=== PATIENT | female | born 1940 | race Caucasian/White ===

== ENCOUNTER 2016-08-08 11:02 | Inpatient (IN) | payer OTHER ==
[~2016-08-08] VITALS: Ht 167.6 cm; Wt 129.2 kg
--- NOTE | 2016-08-08 11:11 | NUR ---
PT TO ED FOR WORSENING SOB, COUGH AND CHILLS FOR PAST 3 DAYS. REPORTING CLEAR SPUTUM WORSE AT NIGHT, STATING "IT FEEL IT IN THE LEFT SIDE OF MY BRONCHI, ONCE I COUGH IT UP IT FEELS BETTER." PT ALSO REPORTING SUBJECTIVE FEVERS. AFEBRILE IN TRIAGE.
--- NOTE | 2016-08-08 11:12 | NUR ---
PT REFUSING EKG.
--- NOTE | 2016-08-08 11:16 | NUR ---
PT ALSO REFUSING WHEELCHAIR.
--- NOTE | 2016-08-08 11:22 | ED DYSPNEA/ASTHMA COMPLAINT ---
History of Present Illness General Chief Complaint: Dyspnea (COPD, CHF, Other) Stated Complaint: TROUBLE BREATHING, Source: patient Exam Limitations: no limitations Allergies Coded Allergies: meclizine (RASH 08/08/16) Reconcile Medications Aclidinium Boon (Tudorza Pressair) 400 MCG/ACTUATION AER.POW.BA 1 PUFF DAILY COPD (Reported) Budesonide/Formoterol Fumarate (Symbicort 160-4.5 Mcg Inhaler) 160 MCG-4.5 MCG/ ACTUATION HFA.AER.AD 2 PUFF BID COPD (Reported) Cholecalciferol (Vitamin D3) (Vitamin D3) 1,000 UNIT CAPSULE 2 CAP PO DAILY REPLACEMENT (Reported) Furosemide 40 MG TABLET 1 TAB PO PRN CHF (Reported) Losartan Potassium 100 MG TABLET 1 TAB PO DAILY HTN (Reported) Triage Note: PT TO ED FOR WORSENING SOB, COUGH AND CHILLS FOR PAST 3 DAYS. REPORTING CLEAR SPUTUM WORSE AT NIGHT, STATING "IT FEEL IT IN THE LEFT SIDE OF MY BRONCHI, ONCE I COUGH IT UP IT FEELS BETTER." PT ALSO REPORTING SUBJECTIVE FEVERS. AFEBRILE IN TRIAGE. Triage Nurses Notes Reviewed? yes HPI: This patient is a 76-year-old female the past medical history including COPD who presented to the emergency department today for evaluation of difficulty breathing times several days. The patient reported that recently her daughter was sick and, "gave it to me." The patient reported that whenever she gets sick and eventually goes to her lungs. She reported that over the last couple of nights she has been having difficult time breathing and can only lay flat for a short period of time before she needs to sit up. She reported that her cough has been intermittently productive of clear or white sputum. The patient reported that she does have lower extremity edema at baseline and takes a as needed dose of Lasix 40 mg. The patient reported tactile fevers, but denied any chills. The patient denied any chest pain, abdominal pain, nausea, vomiting, diarrhea, or constipation. (NARINDER VINCENT,ALISSA) Vital Signs & Intake/Output Vital Signs & Intake/Output Vital Signs Date Time Temp Pulse Resp B/P Pulse O2 O2 Flow FiO2 Ox Delivery Rate 08/09 0954 91 149/99 08/09 0914 95 Room Air Room Air 08/09 0813 98.4 91 20 149/99 92 Room Air 08/09 0000 96 Room Air 08/08 2245 98.7 73 20 138/64 94 Room Air 08/08 1912 77 146/80 / 1835 Room Air Room Air 08/08 1707 98.2 77 20 156/82 94 Room Air 08/08 1600 94 Room Air 08/08 1419 97 08/08 1306 71 18 155/67 92 Room Air 08/08 1248 98.8 68 18 147/67 93 Room Air ED Intake and Output 08/09 0000 08/08 1200 Intake Total 1010 Output Total 850 Balance 160 Intake, IV 10 Intake, Oral 1000 Number 0 Bowel Movements Output, Urine 850 Patient 285 lb 285 lb Weight Past History Travel History Traveled to [place] past 21 day No Medical History Any Pertinent Medical History? see below for history Neurological: NONE EENT: NONE Cardiovascular: hypertension Respiratory: COPD Hepatic: cirrhosis Renal: NONE Musculoskeletal: TWO KNEE REPLACEMENTS Psychiatric: NONE Endocrine: DIABETIC Blood Disorders: "SENSITIVE TO BRUISING" Cancer(s): NONE Pneumonia Vaccine: 03/05/06 Influenza Vaccine: 02/02/07 Surgical History Surgical History: non-contributory Psychosocial History Who do you live with Patient/Self Services at Home None What is your primary language Danish Tobacco Use: Quit <30 days ago ETOH Use: occasional use Illicit Drug Use: denies illicit drug use Family History Hx Contributory? No (ALISSA BARCENAS PA-C) Review of Systems Review of Systems Constitutional: Reports: see HPI. EENTM: Reports: no symptoms. Respiratory: Reports: see HPI. Cardiovascular: Reports: see HPI. GI: Reports: no symptoms. Genitourinary: Reports: no symptoms. Musculoskeletal: Reports: no symptoms. Skin: Reports: no symptoms. Neurological/Psychological: Reports: no symptoms. All Other Systems: Reviewed and Negative (ALISSA BARCENAS PA-C) Physical Exam Physical Exam Respiratory: chest non-tender, scattered rhonchi and wheezes heard throughout all lung boucher. No rales appreciated. No diminished breath sounds. Comments: Well-developed well-nourished person in no acute distress HEENT: Normal EENT exam, head normocephalic, moist mucous membranes Pupils equally round and reactive to light. Neck: Supple, no lymphadenopathy Back: Normal inspection Cardiovascular: Regular rate and rhythm with no murmurs, rubs, or gallops. No carotid bruits or JVD Abdomen: Soft, nontender, and nondistended. Organomegaly appreciated. Normoactive bowel sounds Extremity: Bilateral, nonpitting lower extremity edema with no overlying erythema, no calf tenderness to palpation, normal and equal pulses. Capillary refill less than 2 seconds Neuro: Alert oriented x3, cranial nerves II through XII grossly intact. Skin: No appreciable rash on exposed skin, skin is warm and dry. Psych: Mood and affect is normal Core Measures ACS in differential dx? Yes Severe Sepsis Present: No Septic Shock Present: No (NARINDER VINCENT,ALISSA) Progress Differential Diagnosis: asthma, AMI, bronchitis, costochondritis, CHF, COPD, musculoskeletal pain, pericarditis, pulmonary embolism, pneumonia, pneumothorax, unstable angina Diagnostic Imaging: Viewed by Me: Radiology Read. Discussed w/RAD: Radiology Read. Radiology Impression: PATIENT: WANDA COWAN PRESENT AGE: 76 PATIENT ACCOUNT NO: [id number] : 40 LOCATION: [facility] ORDERING PHYSICIAN: ALISSA BARCENAS PA-C SERVICE DATE: 08/08/16 EXAM TYPE: RAD - XRY-CHEST XRAY, PA AND LATERAL EXAMINATION: XR CHEST CLINICAL INFORMATION: 76-year-old female with cough, shortness of breath. COMPARISON: Chest done on 11/10/2015. TECHNIQUE: 2 views of the chest were obtained. FINDINGS: Persistent stable moderate enlargement of the cardiomediastinal silhouette, superimposed mild pulmonary venous hypertension and possible minimal interstitial edema, consistent with [id number] CHF related changes are noted. Note is also made of small left-sided pleural effusion. The size of the effusion appears to have increased since the prior study. The visualized upper abdomen is unremarkable. No discrete focal airspace opacity sestamibi pneumonia present. No significant change since prior study except for mild interval increase in size of the left-sided pleural effusion. IMPRESSION: Evidence of egds-[id number] CHF. DICTATED BY: FREDERIC FRIAS MD DATE/TIME DICTATED:1144 RATE REVIEWER:JOSÉ MIGUEL DATE/TIME TRANSCRIBED:08/08/161144 CONFIDENTIAL, DO NOT COPY WITHOUT APPROPRIATE AUTHORIZATION. <Electronically signed in Other Vendor System> SIGNED BY: FREEDRIC FRIAS MD 08/08/16 0231 Initial ED EKG: normal axis, normal intervals, nonspecific ST T wave chg, T wave flattening in leads 1, 2,aVL, and aVF. 75 bpm Comments: 08/08/2016 11:43:27 AM: Patient has refused EKG multiple times. 08/08/2016 12:02:30 PM: I updated the patient that her x-ray is showing CHF. She is now agreeable to an EKG. 08/08/2016 12:45:16 PM: This patient is influenza positive with a lactic acidosis of 2.6. Due to this patient is likely new onset CHF, unable to give large amount of fluids at this time. Discussed this patient with Dr. Carlos who is in agreement with the plan for telemetry admission. Patient signed out to Dr. Carlos for telemetry admission. 08/08/2016 12:49:03 PM: I discussed this patient with on-call surgical instrument technician, Dr. Rosales. He agreed to consult on this patient. (NARINDER VINCENT,ALISSA) Plan of Care: Orders Procedure Date/time Status PHOSPHORUS 08/09 0635 Complete MAGNESIUM 08/09 0635 Complete LACTIC ACID 08/09 0600 Complete CBC WITHOUT DIFFERENTIAL 08/09 0600 Complete BASIC ELECTROLYTES PLUS BUN&CR 08/09 0600 Complete LACTIC ACID 08/09 0330 Complete LACTIC ACID 08/09 0045 Complete Lab Add-on Test 08/09 UNK Active Hemoccult 08/09 UNK Active MISSING MEDICATION FORM 08/09 UNK Active ECHOCARDIOGRAM 08/09 UNK Active Consistent Carbohydrate 3 08/08 L Complete Regular Diet 08/08 D Active Teach/Educate 08/09 2135 Active Pain Treatment and Response 08/09 2135 Active Nutritional Intake, Monitor 08/09 2135 Active Isolation 08/08 213 Active Patient Care Conference 08/08 2136 Active LACTIC ACID 08/08 2100 Complete RT: Evaluation 08/08 1834 Active TROPONIN LEVEL 08/08 1800 Complete EKG 08/08 1800 Active PROTHROMBIN TIME 08/08 1501 Complete BLOOD CULTURE 08/08 1445 Active Intake & Output 08/08 1435 Active TRC EVALUATION (GEN) 08/08 1432 Complete Pathway - chart 08/08 1432 Active House Staff 08/08 1432 Active Patient Data 08/08 1432 Active LACTIC ACID 08/08 1422 Complete OXYGEN SETUP (GEN) 08/08 1359 Active Saline Lock 08/08 1359 Active Misc Message 08/08 1359 Active ED Holding Orders 08/08 1359 Active Vital Signs 08/08 1359 Active Activity/Ambulation 08/08 1359 Active Code Status 08/08 1359 Active Admit to inpatient 08/08 1328 Active Patient Data 08/08 1305 Active VIRAL CULTURE 08/08 1150 Active RAPID VIRAL INFLUENZA A 08/08 1142 Complete ARTERIAL BLOOD GAS (GEN) 08/08 1122 Complete TROPONIN LEVEL 08/08 1122 Complete MAGNESIUM 08/08 1122 Complete LACTIC ACID 08/08 1122 Complete COMPREHENSIVE METABOLIC PANEL 08/08 1122 Complete CBC WITHOUT DIFFERENTIAL 08/08 1122 Complete B-TYPE NATRIURETIC PEP (BNP) 08/08 1122 Complete EKG 08/08 1122 Active THERAPIST ORDERS 08/08 0648 Complete AEROSOL CHG 08/08 UNK Complete Lab Add-on Test 08/08 UNK Active Weight 08/08 UNK Active Telemetry/Computer Lab Para Professional 08/08 UNK Active Current Medications Sig/Estephania Start time Last Medication Dose Stop Time Status Admin Prednisone 10 MG DAILY 08/11 1000 AC 08/11 1001 Prednisone 20 MG DAILY 08/10 1000 AC 08/10 1001 Methylprednisolone 40 MG Q8 08/08 2200 CAN (Solumedrol) Docusate Sodium 100 MG BID PRN 08/08 1445 AC (Colace) Ibuprofen 200 MG Q6P PRN 08/08 1445 AC (Advil) Oxycodone/ 1 TAB Q6P PRN 08/08 1430 AC Acetaminophen (Percocet) Laboratory Tests 08/09/16 0635: Anion Gap 4 L, Estimated GFR 54 L, BUN/Creatinine Ratio 29.0 H, Lactic Acid 1.2, Phosphorus 2.9, Magnesium 1.7 08/09/16 0255: Lactic Acid 2.3 H, CBC w Diff NO MAN DIFF REQ, RBC 4.00 L, MCV 96.3, MCH 32.1 H, RDW 13.5, MPV 9.5, Gran % 79.9 H, Lymphocytes % 8.1 L, Monocytes % 11.8 H, Eosinophils % 0.1, Basophils % 0.1, Absolute Granulocytes 4.0, Absolute Lymphocytes 0.4 L, Absolute Monocytes 0.6, Absolute Eosinophils 0, Absolute Basophils 0, PUBS MCHC 33.3 08/09/16 0030: Lactic Acid 3.4 H 08/08/16 2343: Lactic Acid Cancelled 08/08/16 2145: Lactic Acid 4.6 H 08/08/16 1815: Troponin I 0.04 08/08/16 1815: Lactic Acid 2.7 H 08/08/16 1459: PT 18.3 H, INR 1.75 H 08/08/16 1217: pH 7.47 H, pCO2 33 L, pO2 76 L, HCO3 23, ABG O2 Sat (Measured) 95.0 L, P-50 (Temp Corrected) N, Carboxyhemoglobin 0.7 L, O2 Concentration % .21, Temperature 97.9, O2 Delivery Method RA, Phlebotomy Draw Site LEFT RADIAL 08/08/16 1150: Anion Gap 8, Estimated GFR > 60, BUN/Creatinine Ratio 26.7 H, Glucose 121 H, Lactic Acid 2.6 H, Calcium 9.4, Magnesium 1.4 L, Total Bilirubin 2.1 H, AST 46 H, ALT 36, Alkaline Phosphatase 71, Troponin I 0.04, Arr-H-Revdlzugmmm Pept 8260 H, Total Protein 6.8, Albumin 3.4 L, Globulin 3.4, Albumin/Globulin Ratio 1.0 L, CBC w Diff NO MAN DIFF REQ, RBC 4.34, MCV 95.5, MCH 32.6 H, RDW 13.6, MPV 9.5, Gran % 82.0 H, Lymphocytes % 8.1 L, Monocytes % 9.8 H, Eosinophils % 0, Basophils % 0.1, Absolute Granulocytes 3.9, Absolute Lymphocytes 0.4 L, Absolute Monocytes 0.5, Absolute Eosinophils 0, Absolute Basophils 0, PUBS MCHC 34.1, Virus Culture Pending Microbiology 08/10 747 LOWER RESP: Respiratory Culture - CAN Cancelled: NUMBER OF SQUAMOUS CELLS INDICATES POOR QUALITY SPECIMEN 08/10 747 LOWER RESP: Gram Stain - CAN Cancelled: NUMBER OF SQUAMOUS CELLS INDICATES POOR QUALITY SPECIMEN 08/09 1999 LOWER RESP: Respiratory Culture - CAN Cancelled: RECANCELING AFTER FINAL 08/09 1999 LOWER RESP: Gram Stain - CAN Cancelled: RECANCELING AFTER FINAL 08/08 1814 BLOOD: Blood Culture - RECD 08/08 145 BLOOD: Blood Culture - RECD 08/08 1150 NASOPHARYN: Influenza Virus A & B Rapid Smear - COMP INFLUENZA TYPE B Departure Departure Disposition: STILL A PATIENT Condition: Stable Clinical Impression Primary Impression: CHF (congestive heart failure) Qualifiers: Congestive heart failure type: unspecified congestive heart failure type Congestive heart failure chronicity: unspecified congestive heart failure chronicity Qualified Code: I50.9 - Heart failure, unspecified Secondary Impressions: Influenza, Lactic acidosis, Respiratory alkalosis Referrals: RISHI BARNES MD (PCP/Family) Departure Forms: Customer Survey General Discharge Information Admission Note Spoke With: RISHI BARNES MD Documentation of Exam: Documentation of any treatments & extenuating circumstances including Concerns Regarding Discharge (functional status, medication knowledge or non-compliance, living conditions, etc.) that warrant an admission rather than observation: [ This patient is a 76-year-old female with past medical history including COPD who presented to the emergency department today for evaluation of difficulty breathing. Lactic acidosis of 2.6. Influenza A positive. Likely new onset CHF based on BNP greater than 8000 and chest x-ray suggesting CHF. ABG showing a respiratory alkalosis. Patient should be admitted to telemetry for diuresis, trend labs, cardiology consultation, echocardiogram, possible gentle hydration, serial troponin levels, serial EKGs, and close monitoring. Premature discharge could medically harmful.] (ALISSA BARCENAS PA-C) PA/SPRAY UNIT FEEDER Co-Sign Statement Statement: ED Attending supervision documentation- [X] I saw and evaluated the patient. I have also reviewed all the pertinent lab results and diagnostic results. I agree with the findings and the plan of care as documented in the PA's/SPRAY UNIT FEEDER's documentation. [X] I have reviewed the ED Record and agree with the PA's/SPRAY UNIT FEEDER's documentation. [] Additions or exceptions (if any) to the PAs/SPRAY UNIT FEEDER's note and plan are summarized below: [] (ZAHRAA GARCIA,STEFFANIE Mcbride) Critical Care Note Critical Care Note Critical Care Time: 30-74 min (ALISSA BARCENAS PA-C)
--- NOTE | 2016-08-08 11:25 | NUR ---
CARE OF PATIENT ASSUMED. PT CHANGED INTO GOWN. CRACKLES/WHEEZING OVER RIGHT/LUNG. PT TAKEN TO XRAY VIA STRETCHER. + PRODUCTIVE COUGH, WHITE SPUTUM
--- NOTE | 2016-08-08 11:25 | NUR ---
CARE OF PATIENT ASSUMED. PT CHANGED INTO GOWN. CRACKLES/WHEEZING HEARD OVER RIGHT SIDE OF CHEST. PT HAS PRODUCTIVE COUGHT. TAKEN TO XRAY
--- NOTE | 2016-08-08 11:41 | NUR ---
ATTEMPT X2 FOR EKG PT STILL REFUSING STATING "ITS LUNG RELATED NOT CARDIAC"
--- NOTE | 2016-08-08 11:51 | RADIOLOGY REPORT ---
EXAMINATION: XR CHEST CLINICAL INFORMATION: 76-year-old female with cough, shortness of breath. COMPARISON: Chest done on 11/10/2015. TECHNIQUE: 2 views of the chest were obtained. FINDINGS: Persistent stable moderate enlargement of the cardiomediastinal silhouette, superimposed mild pulmonary venous hypertension and possible minimal interstitial edema, consistent with [id number] CHF related changes are noted. Note is also made of small left-sided pleural effusion. The size of the effusion appears to have increased since the prior study. The visualized upper abdomen is unremarkable. No discrete focal airspace opacity sestamibi pneumonia present. No significant change since prior study except for mild interval increase in size of the left-sided pleural effusion. IMPRESSION: Evidence of szkc-yh-syasosgn CHF.
--- NOTE | 2016-08-08 11:55 | NUR ---
1145 PT RETURNED FROM XRAY. PT STATES "WHEN I GET LIKE THIS ITS BECAUSE I HAVE THE FLU" CONTACT PRECUATIONS PLACED. SOLUMEDROL IV GIVEN ORDERD LABS AND FLU SWAB SENT
[2016-08-08 12:07] LABS: ABSOLUTE BASOPHIL COUNT 0 /CUMM (0.0-0.2); ABSOLUTE EOSINOPHIL COUNT 0 /CUMM (0.0-0.7); ABSOLUTE GRANULOCYTE CT 3.9 /CUMM (1.4-6.5); ABSOLUTE LYMPH COUNT 0.4 /CUMM (1.2-3.4); ABSOLUTE MONOCYTE COUNT 0.5 /CUMM (0.10-0.60); BASOPHIL % 0.1 % (0.0-2.0); EOSINOPHIL % 0 % (0-5); HEMATOCRIT 41.5 % (37-47); MEAN CORPUSCULAR HGB 32.6 PG (27.0-31.0); MEAN CORPUSCULAR HGB CONC 34.1 G/DL (33.0-37.0); MEAN CORPUSCULAR VOLUME 95.5 FL (81.0-99.0); MEAN PLATELET VOLUME 9.5 FL (7.4-10.4); RBC DISTRIBUTION WIDTH 13.6 % (11.5-14.5); RED BLOOD CELL CT 4.34 /CUMM (4.20-5.40); WHITE BLOOD CELL COUNT 4.8 /CUMM (4.8-10.8)
--- NOTE | 2016-08-08 12:25 | NUR ---
POSITIVE FLU, DOPLET PRECATIONS IN CONTINUED
--- NOTE | 2016-08-08 12:27 | NUR ---
CRITICAL TEST RESULTS [id number] WANDA COWAN 76 F TESTS AND RESULTS: FLU B + Results received and read back by: CRISPIN BHAKTA Results received date and time: 08/08/16 1227 The following provider was notified of the results, and read the results back: FLYNN CHUNG Notified date and time: 08/08/16 at 1227
[2016-08-08 12:29] LABS: PLATELET COUNT 98 /CUMM (130-400)
--- NOTE | 2016-08-08 12:34 | NUR ---
CRITICAL TEST RESULTS [id number] WANDA COWAN 76 F TESTS AND RESULTS: LACTIC ACID 2.6 Results received and read back by: CRISPIN BHAKTA Results received date and time: 08/08/16 1234 The following provider was notified of the results, and read the results back: Notified date and time: 08/08/16 at 1234 , RESULTS GIVEN TO FLYNN CHUNG
[2016-08-08] MEDS ORDERED: FUROSEMIDE40 M1 PO (12:39)
[2016-08-08] MEDS ORDERED: LOSARTAN POTAS100 M1 PO (12:39)
[2016-08-08] MEDS ORDERED: VITAMIN D31000 UNI1 PO (12:40)
[2016-08-08] MEDS ORDERED: TUDORZA PRESS400 MCG (12:42)
[2016-08-08] MEDS ORDERED: SYMBICORT 16010.2 GM (12:46)
--- NOTE | 2016-08-08 12:49 | NUR ---
PT REPORTS FEELING SLIGHT IMPROVEMENT AFTER BREATHING TREATMENT
--- NOTE | 2016-08-08 13:48 | History & Physical ---
See Addendum TRAV GARCIA,LAKISHA 08/08/16 1347: General Information and HPI MD Statement: I have seen and personally examined WANDA COWAN and documented this H&P. The patient is a 76 year old F who presented with a patient stated chief complaint of []. Source of Information: patient, family, old records Exam Limitations: no limitations History of Present Illness: Patient is a 76-year-old female, with significant past medical history of hypertension, COPD, cirrhosis of the liver, solitary pulmonary nodule (last CT scan 3 yrs ago/2013), type 2 diabetes mellitus , presented with chief complaints of generalized weakness, shortness of breath, dry cough and chills since last 4 days. She was relatively alright 4 days ago and then she started having gradually progressive shortness of breath,on exertion,now she is having shortness of breath on rest. She is also complaining of generalized weakness, orthopnea, swelling in her legs (which has been increased), subjective feeling of fever associated with chills and dry cough. She thinks that because of cough she is feeling pain in upper abdoman. She recently had exposure from her daughter who was diagnosed with flu and she thinks that she also got the flu. She does not had any COPD exacerbation since last 3-4 years. She did not take any course of steroids. She is compliant with the medication. She is having bilateral lower leg swelling and for which she was advised to take Lasix as needed. She is also having type 2 diabetes which is controlled by the diet only. She also complaining of bilateral knee pain. She had bilateral knee arthroplasty in 2007. She had cardiology evaluation in 2007, and had colonoscopy couple of yrs ago and which was normal. She had mammography 2 yrs ago, which was normal. 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 She quit smoking 5 years ago. She was smoking 1PPD before that x 40 yrs.She occasionally drinks alcohol, which she stopped after diagnosis of cirrhosis. Allergies -meclizine( Rash) Medicine - Aclidium bromide, Budesonide, furosemide 40mg,Losartan Allergies/Medications Allergies: Coded Allergies: meclizine (RASH 08/08/16) Home Med list Aclidinium [place] (Tudorza Pressair) 400 MCG/ACTUATION AER.POW.BA 1 PUFF DAILY COPD (Reported) Budesonide/Formoterol Fumarate (Symbicort 160-4.5 Mcg Inhaler) 160 MCG-4.5 MCG/ ACTUATION HFA.AER.AD 2 PUFF BID COPD (Reported) Cholecalciferol (Vitamin D3) (Vitamin D3) 1,000 UNIT CAPSULE 2 CAP PO DAILY REPLACEMENT (Reported) Furosemide 40 MG TABLET 1 TAB PO PRN CHF (Reported) Losartan Potassium 100 MG TABLET 1 TAB PO DAILY HTN (Reported) Oseltamivir Phosphate (Tamiflu) 30 MG CAPSULE 30 MG PO 0700,1900 FLU Prednisone 20 MG TABLET 40 MG PO SI COPD 40MG ONCE A DAY FOR TODAY (08/11/2016) 30MG ONCE A DAY FOR TWO DAYS (08/12/2016 -08/13/2016) 20MG ONCE A DAY FOR TWO DAYS (08/14/2016 - 08/15/2016) 10MG ONCE A DAY FOR TWO DAYS (08/16/2016 - 08/17/2016) THAN TALK TO YOUR PCP FOR FURTHER MANAGEMENT. Compliance With Home Meds: FAIR Past History Travel History Traveled to [place] past 21 day No Medical History Neurological: NONE EENT: NONE Cardiovascular: hypertension Respiratory: COPD Hepatic: cirrhosis Renal: NONE Musculoskeletal: TWO KNEE REPLACEMENTS Psychiatric: NONE Endocrine: DIABETIC Blood Disorders: "SENSITIVE TO BRUISING" Cancer(s): NONE Pneumonia Vaccine: 03/05/06 Influenza Vaccine: 03/05/17 Surgical History Surgical History: non-contributory Past Family/Social History Psychosocial History Services at Home: None Smoking Status: Former Smoker ETOH Use: denies use, was using it before Illicit Drug Use: denies illicit drug use Review of Systems Review of Systems Constitutional: Reports: chills, malaise, weakness. Denies: fever. Cardiovascular: Reports: chest pain, edema, orthopena, palpitations, peripheral edema. Denies: syncope. Respiratory: Reports: cough, orthopnea, short of breath, wheezing. GI: Denies: abdominal pain, bloating, constipation. Genitourinary: Denies: no symptoms. Musculoskeletal: Reports: joint pain. Skin: Reports: change in skin color. Neurological/Psychological: Denies: anxiety. Comments morbidly obese,biateral leg swelling, wheezing and dysnea, feeling lowsy. Exam & Diagnostic Data Last 24 Hrs of Vital Signs/I&O Vital Signs Date Time Temp Pulse Resp B/P Pulse O2 O2 Flow FiO2 Ox Delivery Rate 08/08 1707 98.2 77 20 156/82 94 Room Air 08/08 1419 97 08/08 1306 71 18 155/67 92 Room Air 08/08 1248 98.8 68 18 147/67 93 Room Air 08/08 1111 97.9 83 18 175/79 95 Room Air Intake & Output 08/08 1600 08/08 0800 04 0000 Intake Total 200 Output Total Balance 200 Intake, Oral 200 Patient 129.274 kg Weight Physical Exam General Appearance Alert, Oriented X3, Cooperative, No Acute Distress Skin No Significant Lesion HEENT Atraumatic, PERRLA, EOMI Neck Supple, No JVD Cardiovascular Normal S1, Normal S2, murmur present Lungs bilateral decrease air entry , bilateral basal crepts Abdomen Soft, distended, no tenderness Neurological Normal Speech Extremities No Clubbing, No Cyanosis, bilteral pitting edema Vascular cannt palpate due to edema Last 24 Hrs of Labs/Mina: Laboratory Tests 08/08/16 1459: PT 18.3 H, INR 1.75 H 08/08/16 1217: pH 7.47 H, pCO2 33 L, pO2 76 L, HCO3 23, ABG O2 Sat (Measured) 95.0 L, P-50 (Temp Corrected) N, Carboxyhemoglobin 0.7 L, O2 Concentration % .21, Temperature 97.9, O2 Delivery Method RA, Phlebotomy Draw Site LEFT RADIAL 08/08/16 1150: Anion Gap 8, Estimated GFR > 60, BUN/Creatinine Ratio 26.7 H, Glucose 121 H, Lactic Acid 2.6 H, Calcium 9.4, Magnesium 1.4 L, Total Bilirubin 2.1 H, AST 46 H, ALT 36, Alkaline Phosphatase 71, Troponin I 0.04, Xtu-J-Iwphwjspspu Pept 8260 H, Total Protein 6.8, Albumin 3.4 L, Globulin 3.4, Albumin/Globulin Ratio 1.0 L, CBC w Diff NO MAN DIFF REQ, RBC 4.34, MCV 95.5, MCH 32.6 H, RDW 13.6, MPV 9.5, Gran % 82.0 H, Lymphocytes % 8.1 L, Monocytes % 9.8 H, Eosinophils % 0, Basophils % 0.1, Absolute Granulocytes 3.9, Absolute Lymphocytes 0.4 L, Absolute Monocytes 0.5, Absolute Eosinophils 0, Absolute Basophils 0, PUBS MCHC 34.1, Virus Culture Pending Microbiology 08/08 1459 BLOOD: Blood Culture - RECD 08/08 1445 LOWER RESP: Respiratory Culture - COLB 08/08 1445 LOWER RESP: Gram Stain - COLB 08/08 1445 BLOOD: Blood Culture - COLB 08/08 1150 NASOPHARYN: Influenza Virus A & B Rapid Smear - COMP INFLUENZA TYPE B Diagnostic Data EKG Results heart rate 75 beats per minute, normal sinus rhythm, ST elevation V1 to V2, T- wave inversion I,aVL. Assessment/Plan Assessment: Patient is a 76-year-old female, with significant past medical history of hypertension, COPD, cirrhosis of the liver, solitary pulmonary nodule (last CT scan 3 yrs ago/2013), type 2 diabetes mellitus , presented with chief complaints of generalized weakness, shortness of breath, dry cough and chills since last 4 days. Pertinent labs -granulocyte 82%, Platelet -98, Lactic acid 2.6, BUN -24, creatinin -0.9, Mag -1.4, Total Bili -2.1, Pro BNP -8260, Flu B +, ABG -PCO2 33,PO2-76, SaO2-95 CXR -Evidence of dzef-ig-usyajuxp CHF Vital signs -temperature 97.9, pulse 83, respiratory rate 18, blood pressure 175 /79, SaO2 95% on room air Plan - Influenza B positive - * We will start patient on tab Tamiflu 30 mgs BID * We will watch for respiration. * We will send sputum culture and f/u. * Droplet precautions for total 7 days. Acute CHF * We will admit the patient to telemetry floor * We will start patient on inj Lasix 40 mgs IV OD * We'll keep the head end of the bed elevated * Strict intake output charting * Daily weight measurement * We will place consult for cardiology and f/u echocardiogram COPD * TRC/nebulization * Oxygen inhalation to keep SPO2 more than 92% * We will start patient on tab prednisone Lactic Acidosis * Probably secondary to infection and dehydration. * We will regularly measure it. Type 2 diabetes mellitus * Blood sugar measurement TID/HS * NovoLog according to sliding scale Vitamin D deficiency * We will continue cap Vitamin D3 1000U 2cap PO OD Hypomagnesemia - * We will start her on Cap Mag 400mg BID * We will regularly monitor it. Diet -carbohydrate type II/heart healthy diet DVT prophylaxis -ALP S/heparin CODE STATUS -full code. She is having her own living will, and she is thinking to change the code to DNR/DNI in future, but for now full code. As Ranked By This Provider Problem List: 1. CHF (congestive heart failure) Qualifiers Congestive heart failure type: unspecified congestive heart failure type Congestive heart failure chronicity: unspecified congestive heart failure chronicity Qualified Code: I50.9 - Heart failure, unspecified 2. Influenza 3. Lactic acidosis Core Measures/Miscellaneous Acute Coronary Syndrome ACS Diagnosis: No Cerebrovascular Accident CVA/TIA Diagnosis: No Congestive Heart Failure CHF Diagnosis: Yes Date of most recent Echo: 08/08/16 (not had cardiac evaluation) Last Known EF %: 0 (not known) WON/ARB for EF <40%: Yes Venous Thromboembolism VTE Risk Factors: Age > 40, Immobility, paresis, Obesity [facility] prophylaxis d/t: No contraindications No VTE Pharm Prophylaxis d/t: No contraindications VTE Diagnosis: No VTE Type: NONE VTE Confirmed by (Test): NONE Severe Sepsis Severe Sepsis Present: No Septic Shock Septic Shock Present: No Miscellaneous Documentation Attending Case Discussed With: RISHI BARNES MD Primary Care Physician: RISHI BARNES MD Patient sees these Specialists None Level of Patient Care: Telemetry DARIUS IRBY 08/08/16 1440: Resident Review Statement Other Findings: Mrs. Cowan is a 76-year-old female with significant past medical history of COPD, hypertension, diabetes who presented to the hospital emergency department for dyspnea, worse with exertion over the last week. She states that she was doing well up until Friday and believes she contracted the flu from her daughter. She states since then she is felt dyspneic and has been laying in bed feeling unwell. Associated symptoms include fever, chills, myalgias, orthopnea. She reports clear productive sputum production. Vitals on admission, temperature 97.9, pulse rate 83, respiratory rate 18, blood pressure was 5/75 saturating 95% on room air. Physical exam reveals an age- appropriate appearing female lying comfortably in bed with her daughter at the bedside. HEENT exam negative. No JVD. Heart exam revealed S1-S2 with a 3/6 systolic murmur, loudest in the right second intercostal space parasternally, radiating to the carotids. No significant rubs or gallops noted. Lung auscultation revealed diffuse rhonchi with expiratory wheezing. Abdominal exam negative. Extremity exam revealed trace to +1 pitting edema to the proximal shins bilaterally. No tenderness to palpation. EKG revealed sinus rhythm with left axis deviation at approximately -30. LA interval 0.16. QTC 492. Questionable Q waves in V1 and V2 versus incomplete left bundle branch block [QRS less than 120 ms]. Labs were significant for lactic acidosis 2.4, magnesium 1.4, AST/frailty 46/36. First set of troponin 0.04. ProBNP 8260. TBili 2.1 Arterial blood gas showed mild uncompensated respiratory alkalosis, 7.47/33/76/ 23. Chest x-ray showed mild to moderate mild to moderate CHF. She was given 40 mg of IV Lasix in the emergency department as well as 125 mg of Solu-Medrol. She was found to be influenza positive. Problem list assessment and plan Mrs. Cowan is a 76-year-old female with significant past medical history of COPD, hypertension, diabetes who presents to grasp emergency department with dyspnea and was found to have influenza positive and new vascular congestion on chest x-ray. * We will admit to telemetry given her new CHF, we will rule her out for ACS and consult cardiology. * repeat trop and EKG at 6 and replete magnesium w 2 gram of IV magnesium sulphate * We will also obtain an echo to evaluate for new systolic/diastolic dysfunction as well as her systolic murmur * She was given 40 of IV lasix in the ER and is on 40mg of PO lasix at home, we will continue IV lasix in the inpatient setting and reevaluate tomorrow based on I/O and daily weights * Continue Symbicort inhaler and we will give Spiriva instead of tudorza 1 puff daily, as well as TRC evaluation. * Pt not requiring supplemental O2 at the moment. Rapid steroid taper as corticosteroids failed to demonstrate any beneficial effects in the treatment of patients with severe influenza infection, so we might actually do more harm than good by giving her a long course. * As the patient was exposed on Friday and has had symptoms greater than 48 hours, ?role for Tamiflu therapy at this moment. If we do initiate therapy, we will dose at 30 BID given her CrCl. * continue losartan 100 daily for HTN * Continue vitamin D supplementation. * Diabetes is diet controlled. No novolog SS for now, we will give a CC3 diet. Full code Lovenox for DVT prophylaxis CC3 diet Pain pathway
--- NOTE | 2016-08-08 13:53 | PN- Att Addend ---
Attending Addendum Attending Brief Note This patient is a 76-year-old female the past medical history including COPD who presented to the emergency department today for evaluation of difficulty breathing times several days. The patient reported that recently her daughter was sick and, "gave it to me." The patient reported that whenever she gets sick and eventually goes to her lungs. She reported that over the last couple of nights she has been having difficult time breathing and can only lay flat for a short period of time before she needs to sit up. She reported that her cough has been intermittently productive of clear or white sputum. The patient reported that she does have lower extremity edema at baseline and takes a as needed dose of Lasix 40 mg. The patient reported tactile fevers, but denied any chills Review of Systems Constitutional: Reports: see HPI. EENTM: Reports: no symptoms. Respiratory: Reports: see HPI. Cardiovascular: Reports: see HPI. GI: Reports: no symptoms. Genitourinary: Reports: no symptoms. Musculoskeletal: Reports: no symptoms. Skin: Reports: no symptoms. Neurological/Psychological: Reports: no symptoms. All Other Systems: Reviewed and Negative. The patient denied any chest pain, abdominal pain, nausea, vomiting, diarrhea, or constipation. Aclidinium [place] (Tudorza Pressair) 400 MCG/ACTUATION AER.POW.BA 1 PUFF DAILY COPD (Reported) Budesonide/Formoterol Fumarate (Symbicort 160-4.5 Mcg Inhaler) 160 MCG-4.5 MCG/ ACTUATION HFA.AER.AD 2 PUFF BID COPD (Reported) Cholecalciferol (Vitamin D3) (Vitamin D3) 1,000 UNIT CAPSULE 2 CAP PO DAILY REPLACEMENT (Reported) Furosemide 40 MG TABLET 1 TAB PO PRN CHF (Reported) Losartan Potassium 100 MG TABLET 1 TAB PO DAILY HTN (Reported) Past History Travel History Traveled to [place] past 21 day No Medical History Any Pertinent Medical History? see below for history Neurological: NONE EENT: NONE Cardiovascular: hypertension Respiratory: COPD Hepatic: cirrhosis Renal: NONE Musculoskeletal: TWO KNEE REPLACEMENTS Psychiatric: NONE Endocrine: DIABETIC Blood Disorders: "SENSITIVE TO BRUISING" Cancer(s): NONE Pneumonia Vaccine: 03/05/06 Influenza Vaccine: 02/02/07 Surgical History Surgical History: non-contributory Psychosocial History Who do you live with Patient/Self Services at Home None What is your primary language Yoruba Tobacco Use: Quit <30 days ago ETOH Use: occasional use Illicit Drug Use: denies illicit drug use Family History Hx Contributory? No Physical Exam Respiratory: chest non-tender, scattered rhonchi and wheezes heard throughout all lung boucher. No rales appreciated. No diminished breath sounds. Comments: Well-developed well-nourished person in no acute distress HEENT: Normal EENT exam, head normocephalic, moist mucous membranes Pupils equally round and reactive to light. Neck: Supple, no lymphadenopathy Back: Normal inspection Cardiovascular: Regular rate and rhythm with no murmurs, rubs, or gallops. No carotid bruits or JVD Abdomen: Soft, nontender, and nondistended. Organomegaly appreciated. Normoactive bowel sounds Extremity: Bilateral, nonpitting lower extremity edema with no overlying erythema, no calf tenderness to palpation, normal and equal pulses. Capillary refill less than 2 seconds Neuro: Alert oriented x3, cranial nerves II through XII grossly intact. Skin: No appreciable rash on exposed skin, skin is warm and dry. Psych: Mood and affect is normal SIGNIFICANT DATA BUN 24 creatinine normal lactic acid was slightly elevated at 2.6. Anion gap was normal, bilirubin was elevated which is chronically elevated AST ALT slightly altered. ProBNP was more than 8000 troponin was unremarkable White count 4.8 platelets were low at 98 she has chronic thrombocytopenia ABG 747/33/76/95% Previous blood work for evaluation of autoimmune hepatitis negative Chest x-ray showed bilateral pulmonary infiltrates Previous ultrasound of the liver showed cirrhosis IMPRESSION This is a lady with history of glucose intolerance, moderate COPD with ongoing smoking, hypertension, 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, hypertension, chronic liver disease with no significant decompensation recently, vitamin D deficiency, chronic venous insufficiency and chronic pedal edema, degenerative joint disease, now comes in with * Influenza pneumonitis with cough fatigue fever * Significant COPD with ongoing wheezing which is relatively new for her * Significantly elevated proBNP with chest x-ray suggestive of congestive heart failure, however she may have pneumonitis from influenza * 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 Rosales * Keep the head of bed elevated * Admit her to telemetry floor * Watch her blood work * Sputum culture * Hold antibacterial antibiotics for now and if she does have purulent sputum we 'll get sputum culture and sensitivity and she may need to be treated for both gram-positive and gram-negative infection if she does have any bacterial bronchitis so far no clinical evidence suggestive of that * Check INR * Follow blood work daily * Keep the head of bed elevated * Continue vitamin D We will follow closely,
--- NOTE | 2016-08-08 13:58 | NUR ---
FAMILY AT BEDSIDE, INFORMED ABOUT FLU STATUS AND GIVEN MASK
--- NOTE | 2016-08-08 14:27 | NUR ---
BED ASSIGNMENT [id number]
--- NOTE | 2016-08-08 15:05 | NUR ---
REPORT GIVEN TO CARSON SAMUEL IN [address] [place] [address]
[2016-08-08 15:15] LABS: PT 18.3 SEC (9.4-12.5)
--- NOTE | 2016-08-08 15:18 | NUR ---
ASSUMED PRIMARY CARE OF PT. AWAITING TRANSPORT TO BRING PT TO [address] [place] [address].
--- NOTE | 2016-08-08 16:16 | PN- Student ---
JOSEPH ESPOSITO 08/08/16 1534: Subjective Subjective: HPI: Alpa Craig is a 76yo female who presented to the emergency room today () with worsening dyspnea, cough productive of clear sputum, chills, and chest discomfort for the past 4 days. She reports subjective fevers and a recent close contact with a sick individual. The patient has bilateral lower extremity edema at baseline, which she feels has worsened over the past several weeks. This also corresponds with an increase in orthopnea, moving from 2 pillow use to 3 pillow usage per night. She now describes having to sit upright for greater than 30 minutes in order to "catch her breath" and describes needing to sit in a tripod position at times. She was recently changed from Losartan-HCTZ to Lasix 40mg prn. She had 3 doses of Lasix within the past week. Additionally, the patient reports headache, myalgias, and arthralgias that are new for her. She has been using 2 tablets of Acetaminophen for temporary relief. Allergies: Meclizine Current Home Medications: Lasix 40 mg Symbicort 160-4.5, 2 puffs BID Tudorza Pressair, 1 puff daily Losartan 100mg daily (changed from Losartan-HCTZ recently) Vitamin D, 1000u daily PMH: significant for HTN, CHF, COPD, cirrhosis, diet controlled type 2 diabetes mellitus, stable pulmonary nodules, and easy bruising. PSH: bilateral total knee replacements in 2007, multiple cataract surgeries in the right eye, cholecystectomy in 1999, and a hysterectomy d/t heavy bleeding and possible endometriosis in 1989. Social: The patient is a former ~1 pack per day smoker for her "entire life". Smoking cessation was 5 years ago. She admits to social alcohol use when she was younger, including several drinks on most weekends. Her alcohol use sharply declined following the of her in the early . She lives alone and is mobile and independent with activities of daily living. 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 Family History: Mother: unknown cancer, COPD, thyroid disorder Father: CHF middle daughter: lung tumor s/p upper lobectomy grandson: testicular cancer Health Maintenance: Received Flu vaccine this year. Unsure of date of last colonoscopy, but reports no abnormal findings during last colonoscopy. Unsure of date of last mammography, but reports self breast examination and no history of any abnormal masses. ROS: * Neuro: significant for headache. Denies confusion, lethargy, or altered mental status * HEENT: Denies recent trauma, vision change, hearing loss, nasal congestion, or sore throat * Neck: Denies lymphadenopathy * CV: Significant for existing and worsening bilateral lower extremity edema, pillow orthopnea. Denies CP, palpitations. * Pulm: Negative except for HPI * GI: Significant for decreased appetite and oral intake. Denies change in bowel habits, nausea, vomiting * : Significant for frequent urination 2/2 Lasix use. Denies dysuria or retention * MSK: Negative except HPI/PMH * Integument: Significant for easy bruising. Denies rash. * Endocrine: Diet controlled diabetes * Psych: Denies any changes in mood or affect Objective Objective: Physical Exam: Vitals: * Temp: 98.8 oral * HR: 71 bpm * RR: 18 * SpO2: 92% on Room Air * BP: 155/67 Neuro: A&O x3, no focal deficits HEENT: normocephalic, atraumatic. No tenderness over sinuses. No scleral icterus or conjunctival pallor. Moist oral mucosa Neck: No lymphadenopathy or thyromegaly CV: S1, S2 without murmurs, rubs, or carotid bruits Pulm: Coarse on auscultation with frequent expiratory wheezing. Symmetrical chest wall expansion GI: Abdomen soft, non tender. Bowel sounds present and normoactive. MSK: bilateral lower extremity non-pitting edema. Surgical scars noted at bilateral knees Integument: warm and dry. Dusky red discoloration over bilateral shins Peripheral vascular: distal lower extremity pulses difficult to palpate d/t edema Relevant Labs: Influenza B culture: Positive ABG: * pH: 7.47 * pCO2: 33 * pO2: 76 * HCO3: 23 * O2 saturation: 95 Lactic acid: 2.6 pro-BNP: 8260 Trop-I: 0.04 Total bilirubin: 2.1 AST: 46 Relevant Imaging: CXR: mild to moderate CHF Assessment/Plan Assessment: Mrs. Craig is a 76yo female presenting with dyspnea, productive cough, myalgias , and worsening orthopnea in the setting of recent sick contact exposure. Dyspnea: * Influenza B rapid test positive * Will give Tamiflu * Continue Inahlers/nebs for COPD * Monitor SpO2, respiratory status closely given PMH CHF: * will continue home doses of Lasix and Losartan * Admit to telemetry * Strict I&O * monitor BUN and Cr daily Cirrhosis: * LFTs mildly elevated * Recommend against further use of Acetaminophen * monitor LFTs Pt wishes to ultimately be considered a full code for now, although she express concern about intubation. 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
[2016-08-08 17:07] VITALS: BP 156/82
[2016-08-08 22:45] VITALS: BP 138/64
[2016-08-09 03:09] LABS: ABSOLUTE BASOPHIL COUNT 0 /CUMM (0.0-0.2); ABSOLUTE EOSINOPHIL COUNT 0 /CUMM (0.0-0.7); ABSOLUTE LYMPH COUNT 0.4 /CUMM (1.2-3.4); ABSOLUTE MONOCYTE COUNT 0.6 /CUMM (0.10-0.60); BASOPHIL % 0.1 % (0.0-2.0); EOSINOPHIL % 0.1 % (0-5); GRANULOCYTE % 79.9 % (42.2-75.2); HEMATOCRIT 38.5 % (37-47); MEAN CORPUSCULAR HGB 32.1 PG (27.0-31.0); MEAN CORPUSCULAR HGB CONC 33.3 G/DL (33.0-37.0); MEAN CORPUSCULAR VOLUME 96.3 FL (81.0-99.0); MEAN PLATELET VOLUME 9.5 FL (7.4-10.4); PLATELET COUNT 94 /CUMM (130-400); RBC DISTRIBUTION WIDTH 13.5 % (11.5-14.5)
--- NOTE | 2016-08-09 07:53 | PN- Housestaff ---
Subjective Follow-up For: f/u Influenzae B Acute CHF Complaints: SOB on exersion Tele-Events Since Last Visit: MONICA Subjective: Patient is seen and examined at the bedside. She was feeling much better in terms of generalized body ache, but still complaining of dyspnea on exertion. She is also complaining of dry cough. Denies fever, chest pain, nausea, vomiting. Review of Systems Constitutional: Reports: malaise, weakness. Cardiovascular: Reports: edema, orthopena, palpitations, peripheral edema. Denies: chest pain. Respiratory: Reports: cough, orthopnea, short of breath, wheezing. Denies: hemoptysis. Gastrointestinal: Denies: abdominal pain, bloating, constipation, diarrhea. Genitourinary: Denies: no symptoms. Musculoskeletal: Reports: joint pain. Skin: Denies: no symptoms. Objective Last 24 Hrs of Vital Signs/I&O Vital Signs Date Time Temp Pulse Resp B/P Pulse O2 O2 Flow FiO2 Ox Delivery Rate 08/09 0954 91 149/99 08/09 0914 95 Room Air Room Air 08/09 0813 98.4 91 20 149/99 92 Room Air 08/09 0000 96 Room Air 08/08 2245 98.7 73 20 138/64 94 Room Air 08/08 1912 77 146/80 08/08 1835 Room Air Room Air 08/08 1707 98.2 77 20 156/82 94 Room Air 08/08 1600 94 Room Air 08/08 1419 97 Intake & Output 08/09 1600 08/09 0800 08/09 0000 Intake Total 400 810 Output Total 650 850 Balance -250 -40 Intake, IV 10 Intake, Oral 400 800 Number 0 Bowel Movements Output, Urine 650 850 Patient 129.274 kg Weight Physical Exam General Appearance: Alert, Oriented X3, Cooperative, Mild Distress Skin: No Rashes, No Breakdown Cardiovascular: Normal S1, Normal S2 Lungs: bilateral decreased air entry, Abdomen: Soft, No Tenderness Neurological: Normal Speech Extremities: bilateral lower leg, pitting edema Vascular: difficult to acess due to edema Current Medications: Current Medications Sig/Estephania Start time Last Medication Dose Route Stop Time Status Admin Albuterol Sulfate 3 ML EVERY 4 HRS/AWAKE 08/09 1999 AC 08/09 INH 1233 Benzonatate 100 MG TID PRN 08/09 1415 UNVr PO Budesonide/ 2 PUF BID 08/08 1425 AC 08/09 Formoterol Fumarate INH 0953 Cholecalciferol 1,000 IU DAILY 08/09 1000 AC 08/09 PO 0954 Docusate Sodium 100 MG BID PRN 08/08 1445 AC PO Enoxaparin Sodium 40 MG Q24H 08/08 1500 AC 08/08 SC 1908 Furosemide 40 MG DAILY 08/09 1000 AC 08/09 IV 0954 Furosemide 0 .STK-MED ONE 08/08 1443 DC IV Ibuprofen 200 MG Q6P PRN 08/08 1445 AC PO Ibuprofen 400 MG Q6P PRN 08/08 1430 AC 08/09 PO 0957 Ipratropium [place] 2.5 ML EVERY 4 HRS/AWAKE 08/09 0800 AC 08/09 INH 1233 Losartan Potassium 100 MG DAILY 08/08 1425 AC 08/09 PO 0954 Magnesium Sulfate 0 .STK-MED ONE 08/08 1453 DC .ROUTE Magnesium Sulfate 1 GM Q2H 08/08 1445 DC 08/08 Dextrose/Water 100 ML IV 08/08 1844 1902 Methylprednisolone 40 MG Q8 08/08 2200 CAN IV Nystatin 1 TARIK BID 08/08 2204 AC 08/09 TOP 0954 Oseltamivir Phosphate 30 MG 0700,1900 08/09 0700 AC 08/09 PO 08/13 0659 0634 Oseltamivir Phosphate 30 MG BID 08/08 1439 DC 08/08 PO 08/12 1438 1904 Oxycodone/ 1 TAB Q6P PRN 08/08 1430 AC Acetaminophen PO Prednisone 10 MG DAILY 08/11 1000 AC PO 08/11 1001 Prednisone 20 MG DAILY 08/10 1000 AC PO 08/10 1001 Prednisone 30 MG DAILY 08/09 1000 DC 08/09 PO 08/09 1001 0954 Tiotropium [place] 1 PUF DAILY 08/08 1426 AC 08/09 INH 0953 Last 24 Hrs of Lab/Mina Results Last 24 Hrs of Labs/Mics: Laboratory Tests 08/09/16 0635: Anion Gap 4 L, Estimated GFR 54 L, BUN/Creatinine Ratio 29.0 H, Lactic Acid 1.2, Phosphorus 2.9, Magnesium 1.7 08/09/16 0255: Lactic Acid 2.3 H, CBC w Diff NO MAN DIFF REQ, RBC 4.00 L, MCV 96.3, MCH 32.1 H, RDW 13.5, MPV 9.5, Gran % 79.9 H, Lymphocytes % 8.1 L, Monocytes % 11.8 H, Eosinophils % 0.1, Basophils % 0.1, Absolute Granulocytes 4.0, Absolute Lymphocytes 0.4 L, Absolute Monocytes 0.6, Absolute Eosinophils 0, Absolute Basophils 0, PUBS MCHC 33.3 08/09/16 0030: Lactic Acid 3.4 H 08/08/16 2343: Lactic Acid Cancelled 08/08/16 2145: Lactic Acid 4.6 H 08/08/16 1815: Troponin I 0.04 08/08/16 181: Lactic Acid 2.7 H 08/08/16 1459: PT 18.3 H, INR 1.75 H Microbiology 08/10 747 LOWER RESP: Respiratory Culture - CAN Cancelled: NUMBER OF SQUAMOUS CELLS INDICATES POOR QUALITY SPECIMEN 08/10 747 LOWER RESP: Gram Stain - CAN Cancelled: NUMBER OF SQUAMOUS CELLS INDICATES POOR QUALITY SPECIMEN 08/09 1999 LOWER RESP: Respiratory Culture - CAN Cancelled: RECANCELING AFTER FINAL 08/09 1999 LOWER RESP: Gram Stain - CAN Cancelled: RECANCELING AFTER FINAL 08/08 1814 BLOOD: Blood Culture - RES 08/08 1458 BLOOD: Blood Culture - RES Assessment/Plan Assessment: Assessment: Patient is a 76-year-old female, with significant past medical history of hypertension, COPD, cirrhosis of the liver, solitary pulmonary nodule (last CT scan 3 yrs ago/2013), type 2 diabetes mellitus , presented with chief complaints of generalized weakness, shortness of breath, dry cough and chills since last 4 days. Pertinent labs -granulocyte 82%, Platelet -98, Lactic acid 2.6, BUN -24, creatinin -0.9, Mag -1.4, Total Bili -2.1, Pro BNP -8260, Flu B +, ABG -PCO2 33,PO2-76, SaO2-95 CXR -Evidence of [id number] CHF Vital signs -temperature 98.4, pulse 91, respiratory rate 20, blood pressure 149 /99, SPO2 92% Plan - Influenza B positive - * We will continue tab Tamiflu 30 mgs BID x 5 days ( 08/09/2015 PM -08/13/2016 AM) * We will watch for respiration. * We will follow sputum culture and f/u. * Droplet precautions for total 7 days.( till friday08/10/2016) Acute CHF * We will continue to observe the patient to telemetry floor * We will continue to put patient on inj Lasix 40 mgs IV OD * We'll keep the head end of the bed elevated * Strict intake output charting * Daily weight measurement * We will follow cardiology and f/u echocardiogram COPD * TRC/nebulization * If needed Oxygen inhalation to keep SPO2 more than 92% * We will continue patient on tab prednisone 20 x 1 day, 10 x1 day Lactic Acidosis - today 1.2 * Probably secondary to infection and dehydration. Type 2 diabetes mellitus * not on medication, we will continue to treat with diet. Vitamin D deficiency * We will continue cap Vitamin D3 1000U 2 cap PO OD Hypomagnesemia/ Hypokalemia - * We will start her on Cap Mag 400mg BID and K powder 40mEq BID x 1 day * We will regularly monitor it. Diet -carbohydrate type II/heart healthy diet DVT prophylaxis -ALP S/heparin CODE STATUS -full code. She is having her own living will, and she is thinking to change the code to DNR/DNI in future, but for now full code. Problem List: 1. Lactic acidosis 2. Influenza 3. CHF (congestive heart failure) Pain Ratin Pain Location: both knee Pain Goal: Remain pain free Pain Plan: mild to moderate, avoid NSAIDs and tylenol due to cirrrhosis and CHF Tomorrow's Labs & Rationales: BEP - to f/u with K /Creat DVT/Prophylaxis: mechanical, pharmacological
[2016-08-09 08:13] VITALS: BP 149/99
--- NOTE | 2016-08-09 09:13 | PN- Student ---
JOSEPH ESPOSITO 08/09/16 0853: Subjective Subjective: Alpa Craig is a 76yo F who was admitted 08/08/16 for a 4 day history of worsening dyspnea, orthopnea, edema, and cough productive of clear sputum in the setting of recent sick contact exposure. Her PMH is significant for HTN, CHF, COPD, stable pulmonary nodules, cirrhosis, and diet controlled type 2 diabetes mellitus. She was found to be Influenza B positive. Relevant admission labs include Lactic acid of 2.6, pro-BNP of 8260, total bilirubin 2.1. She is receiving IV Lasix and diuresing well, with a fluid balance of (negative) -90 mL since presentation. She is also on a Prednisone taper and receiving Tamiflu. Home meds continued while inpatient. This morning she states her myalgias and arthralgias have largely subsided, but she is still experiencing signficant SOB with minimal exertion. She states this is impeding her ADLs, taking a significantly longer time to dress and perform hygiene activites than it normally would, requiring several resting periods between activities. Additionally, she experienced frequent coughing overnight, which prevented her from achieving adequate sleep. Objective Objective: Physical Exam: Vitals: * Temp: 98.4 oral * HR: 91 * RR: 20 * SpO2: 92% on Room Air * BP: 149/99 N: A&Ox3, NAD CV: NSR with frequent PVCs per telemetry monitoring, systolic murmur at right sternal border P: Diffuse rhonchi, symmetrical chest wall expansion Extremities: BLE edematous Exam otherwise limited by patient's refusal Relevant Labs: Hb/Hct: 12.8/38.5 (from 14.1/41.5 on admission) Plts: 94k (from 98k on admission) BUN: 29 PT 18.3 INR 1.75 Lactic acid peaked at 4.6 on 08/08/16 pm shift, now at 1.2 Assessment/Plan Assessment: Alpa Craig, 76yoF with CHF, COPD, cirrhosis and Influenza B infection Influenza B: * Continue Tamiflu * Continue inhalers/nebs * Monitor respiratory status * Droplet precautions CHF: * continue IV Lasix, home dose Losartan * Continue telemetry monitoring * Strict I&O measurement * Daily weight * Follow cardiology recommendations COPD: * Inahlers/Nebs * Follow Pulmonology recommendations Cirrhosis: * Limit acetaminophen use * monitor LFTs during hospital course Drop in H&H: * Pt has negative fluid balance, unlikely to be d/t hemodilution given negative fluid balance since admission * Monitor CBC for further changes * Stool guiac to r/o any GIB
--- NOTE | 2016-08-09 09:15 | PN- Att Addend ---
Attending Addendum Attending Brief Note Patient reports improved breathing symptoms General Appearance: Alert, No Acute Distress Skin: Grossly normal HEENT: PEERLA Neck: Supple, No JVD Cardiovascular: Regular Rate, Normal S1, Normal S2, No Murmurs Lungs: Expiratory wheeze diffuse Abdomen: Normal Bowel Sounds, Soft, No Tenderness Neurological: Normal Speech, Strength at 5/5 X4 Ext, Cranial Nerves 3-12 NL, Reflexes 2+ Extremities: No Clubbing, No Cyanosis, No Edema Vascular: Normal Pulses Assessment Improved breathing symptoms on Tamiflu and prednisone. She is currently on IV Lasix awaiting for cardiology evaluation. Echogram is pending. We will continue to monitor symptoms for next 24 hours. Plan Continue current treatment Follow cardiology recommendations and echo cardiogram Prednisone taper Tamiflu for 5 days TRC and nebs Continue all other home meds and DVT prophylaxis Current Medications Sig/Estephania Start time Last Medication Dose Route Stop Time Status Admin Albuterol Sulfate 3 ML EVERY 4 HRS/AWAKE 08/08 2000 AC 08/09 INH 0911 Albuterol Sulfate 3 ML ONCE ONE 08/08 1130 DC 08/08 INH 08/08 1131 1419 Budesonide/ 2 PUF BID 08/08 1425 AC 08/08 Formoterol Fumarate INH 2221 Cholecalciferol 1,000 IU DAILY 08/09 1000 AC PO Docusate Sodium 100 MG BID PRN 08/08 1445 AC PO Enoxaparin Sodium 40 MG Q24H 08/08 1500 AC 08/08 SC 1908 Furosemide 40 MG DAILY 08/09 1000 AC IV Furosemide 0 .STK-MED ONE 08/08 1443 DC IV Furosemide 40 MG ONCE ONE 08/08 1315 DC 04 IV 08/08 1316 1446 Ibuprofen 200 MG Q6P PRN 08/08 1445 AC PO Ibuprofen 400 MG Q6P PRN 08/08 1430 AC PO Ipratropium [place] 2.5 ML EVERY 4 HRS/AWAKE 08/09 0800 AC 08/09 INH 0911 Ipratropium [place] 2.5 ML ONCE ONE 08/08 1130 DC 08/08 INH 08/08 1131 1419 Losartan Potassium 100 MG DAILY 08/08 1425 AC / PO 1912 Magnesium Sulfate 0 .STK-MED ONE 08/08 1453 DC .ROUTE Magnesium Sulfate 1 GM Q2H 08/08 1445 DC 08/08 Dextrose/Water 100 ML IV 08/08 1844 1902 Methylprednisolone 40 MG Q8 08/08 2200 CAN IV Methylprednisolone 0 .STK-MED ONE 08/08 1140 DC .ROUTE Methylprednisolone 125 MG ONCE ONE 08/08 1130 DC 08/08 IV 08/08 1131 1152 Nystatin 1 TARIK BID 08/08 2204 AC TOP Oseltamivir Phosphate 30 MG 0700,1900 08/09 0700 AC 08/09 PO 08/13 0659 0634 Oseltamivir Phosphate 30 MG BID 08/08 1439 DC 08/08 PO 08/12 1438 1904 Oxycodone/ 1 TAB Q6P PRN 08/08 1430 AC Acetaminophen PO Prednisone 10 MG DAILY 08/11 1000 AC PO 08/11 1001 Prednisone 20 MG DAILY 08/10 1000 AC PO 08/10 1001 Prednisone 30 MG DAILY 08/09 1000 AC PO 08/09 1001 Tiotropium [place] 1 PUF DAILY 08/08 1426 AC 08/08 INH 1908 Laboratory Tests 08/09 08/09 08/09 0635 0255 0030 Chemistry Sodium (137 - 145 mmol/L) 139 Potassium (3.5 - 5.1 mmol/L) 3.5 Chloride (98 - 107 mmol/L) 106 Carbon Dioxide (22 - 30 mmol/L) 29 Anion Gap (5 - 16) 4 L BUN (7 - 17 mg/dL) 29 H Creatinine (0.5 - 1.0 mg/dL) 1.0 Estimated GFR (>60 ml/min) 54 L BUN/Creatinine Ratio (7 - 25 %) 29.0 H Lactic Acid (0.7 - 2.1 mmol/L) 1.2 2.3 H 3.4 H Hematology CBC w Diff NO MAN DIFF REQ WBC (4.8 - 10.8 /CUMM) 5.0 RBC (4.20 - 5.40 /CUMM) 4.00 L Hgb (12.0 - 16.0 G/DL) 12.8 Hct (37 - 47 %) 38.5 MCV (81.0 - 99.0 FL) 96.3 MCH (27.0 - 31.0 PG) 32.1 H RDW (11.5 - 14.5 %) 13.5 Plt Count (130 - 400 /CUMM) 94 L MPV (7.4 - 10.4 FL) 9.5 Gran % (42.2 - 75.2 %) 79.9 H Lymphocytes % (20.5 - 51.1 %) 8.1 L Monocytes % (1.7 - 9.3 %) 11.8 H Eosinophils % (0 - 5 %) 0.1 Basophils % (0.0 - 2.0 %) 0.1 Absolute Granulocytes (1.4 - 6.5 /CUMM) 4.0 Absolute Lymphocytes (1.2 - 3.4 /CUMM) 0.4 L Absolute Monocytes (0.10 - 0.60 /CUMM) 0.6 Absolute Eosinophils (0.0 - 0.7 /CUMM) 0 Absolute Basophils (0.0 - 0.2 /CUMM) 0 PUBS MCHC (33.0 - 37.0 G/DL) 33.3 08/08 08/08 08/08 08/08 08/08 2343 2145 1815 1815 1459 Chemistry Lactic Acid (0.7 - 2.1 mmol/L) Cancelled 4.6 H 2.7 H Troponin I (< 0.11 ng/ml) 0.04 Coagulation PT (9.4 - 12.5 SEC) 18.3 H INR (0.90 - 1.19) 1.75 H 08/08 08/08 1217 1150 Blood Gas pH (7.35 - 7.45 PH) 7.47 H pCO2 (35 - 45 TORR) 33 L pO2 (80 - 100 TORR) 76 L HCO3 (21 - 28 MEQ/L) 23 ABG O2 Sat (Measured) (>96.0 %) 95.0 L P-50 (Temp Corrected) N Carboxyhemoglobin (1.5 - 5.0 %) 0.7 L O2 Concentration % .21 Temperature (97.0 - 100.0 FARH) 97.9 O2 Delivery Method RA Chemistry Sodium (137 - 145 mmol/L) 140 Potassium (3.5 - 5.1 mmol/L) 3.7 Chloride (98 - 107 mmol/L) 106 Carbon Dioxide (22 - 30 mmol/L) 25 Anion Gap (5 - 16) 8 BUN (7 - 17 mg/dL) 24 H Creatinine (0.5 - 1.0 mg/dL) 0.9 Estimated GFR (>60 ml/min) > 60 BUN/Creatinine Ratio (7 - 25 %) 26.7 H Glucose (65 - 99 mg/dL) 121 H Lactic Acid (0.7 - 2.1 mmol/L) 2.6 H Calcium (8.4 - 10.2 mg/dL) 9.4 Magnesium (1.6 - 2.3 mg/dL) 1.4 L Total Bilirubin (0.2 - 1.3 mg/dL) 2.1 H AST (14 - 36 U/L) 46 H ALT (9 - 52 U/L) 36 Alkaline Phosphatase (<127 U/L) 71 Troponin I (< 0.11 ng/ml) 0.04 [id number] Pept (<125 pg/mL) 8260 H Total Protein (6.3 - 8.2 g/dL) 6.8 Albumin (3.5 - 5.0 g/dL) 3.4 L Globulin (1.9 - 4.2 gm/dL) 3.4 Albumin/Globulin Ratio (1.1 - 2.2 %) 1.0 L Hematology CBC w Diff NO MAN DIFF REQ WBC (4.8 - 10.8 /CUMM) 4.8 RBC (4.20 - 5.40 /CUMM) 4.34 Hgb (12.0 - 16.0 G/DL) 14.1 Hct (37 - 47 %) 41.5 MCV (81.0 - 99.0 FL) 95.5 MCH (27.0 - 31.0 PG) 32.6 H RDW (11.5 - 14.5 %) 13.6 Plt Count (130 - 400 /CUMM) 98 L MPV (7.4 - 10.4 FL) 9.5 Gran % (42.2 - 75.2 %) 82.0 H Lymphocytes % (20.5 - 51.1 %) 8.1 L Monocytes % (1.7 - 9.3 %) 9.8 H Eosinophils % (0 - 5 %) 0 Basophils % (0.0 - 2.0 %) 0.1 Absolute Granulocytes (1.4 - 6.5 /CUMM) 3.9 Absolute Lymphocytes (1.2 - 3.4 /CUMM) 0.4 L Absolute Monocytes (0.10 - 0.60 /CUMM) 0.5 Absolute Eosinophils (0.0 - 0.7 /CUMM) 0 Absolute Basophils (0.0 - 0.2 /CUMM) 0 PUBS MCHC (33.0 - 37.0 G/DL) 34.1 Miscellaneous Phlebotomy Draw Site LEFT RADIAL Serology Virus Culture Pending Vital Signs Date Time Temp Pulse Resp B/P Pulse O2 O2 Flow FiO2 Ox Delivery Rate 08/09 0813 98.4 91 20 149/99 92 Room Air 08/09 0000 96 Room Air 08/08 2245 98.7 73 20 138/64 94 Room Air 04 1912 77 146/80 04/06 1835 Room Air Room Air 04 1707 98.2 77 20 156/82 94 Room Air 04/06 1600 94 Room Air 04/06 1419 97 04/06 1306 71 18 155/67 92 Room Air 04/06 1248 98.8 68 18 147/67 93 Room Air 04/06 1111 97.9 83 18 175/79 95 Room Air
--- NOTE | 2016-08-09 10:19 | PN- Pulmonary ---
See Addendum Subjective HPI/Critical Care Issues: pt seen and examined minor wheezing dyspnea on exertion on tamiflu doing better overall Objective Current Medications: Current Medications Sig/Estephania Start time Last Medication Dose Route Stop Time Status Admin Albuterol Sulfate 3 ML EVERY 4 HRS/AWAKE 08/08 2000 AC 08/09 INH 0911 Albuterol Sulfate 3 ML ONCE ONE 08/08 1130 DC 04 INH 08/08 1131 1419 Budesonide/ 2 PUF BID 08/08 1425 AC 08/09 Formoterol Fumarate INH 0953 Cholecalciferol 1,000 IU DAILY 08/09 1000 AC 08/09 PO 0954 Docusate Sodium 100 MG BID PRN 08/08 1445 AC PO Enoxaparin Sodium 40 MG Q24H 08/08 1500 AC 08/08 SC 1908 Furosemide 40 MG DAILY 08/09 1000 AC 08/09 IV 0954 Furosemide 0 .STK-MED ONE 08/08 1443 DC IV Furosemide 40 MG ONCE ONE 08/08 1315 DC 08/08 IV 08/08 1316 1446 Ibuprofen 200 MG Q6P PRN 08/08 1445 AC PO Ibuprofen 400 MG Q6P PRN 08/08 1430 AC 08/09 PO 0957 Ipratropium [place] 2.5 ML EVERY 4 HRS/AWAKE 08/09 0800 AC 08/09 INH 0911 Ipratropium [place] 2.5 ML ONCE ONE 08/08 1130 DC 04 INH 08/08 1131 1419 Losartan Potassium 100 MG DAILY 08/08 1425 AC 08/09 PO 0954 Magnesium Sulfate 0 .STK-MED ONE 08/08 1453 DC .ROUTE Magnesium Sulfate 1 GM Q2H 08/08 1445 DC 08/08 Dextrose/Water 100 ML IV 08/08 1844 1902 Methylprednisolone 40 MG Q8 08/08 2200 CAN IV Methylprednisolone 0 .STK-MED ONE 08/08 1140 DC .ROUTE Methylprednisolone 125 MG ONCE ONE 08/08 1130 DC 04/ IV 08/08 1131 1152 Nystatin 1 TARIK BID 08/08 2204 AC 08/09 TOP 0954 Oseltamivir Phosphate 30 MG 0700,1900 04 0700 AC 08/09 PO 08/13 0659 0634 Oseltamivir Phosphate 30 MG BID 08/08 1439 DC 08/08 PO 08/12 1438 1904 Oxycodone/ 1 TAB Q6P PRN 08/08 1430 AC Acetaminophen PO Prednisone 10 MG DAILY 08/11 1000 AC PO 08/11 1001 Prednisone 20 MG DAILY 08/10 1000 AC PO 08/10 1001 Prednisone 30 MG DAILY 08/09 1000 DC 08/09 PO 08/09 1001 0954 Tiotropium [place] 1 PUF DAILY 08/08 1426 AC 08/09 INH 0953 Vital Signs & I&O Last 24 Hrs of Vitals and I&O: Vital Signs Date Time Temp Pulse Resp B/P Pulse O2 O2 Flow FiO2 Ox Delivery Rate 08/09 0954 91 149/99 08/09 0914 95 Room Air Room Air 08/09 0813 98.4 91 20 149/99 92 Room Air 08/09 0000 96 Room Air 08/08 2245 98.7 73 20 138/64 94 Room Air 08/08 1912 77 146/80 08/08 1835 Room Air Room Air 08/08 1707 98.2 77 20 156/82 94 Room Air 08/08 1600 94 Room Air 08/08 1419 97 08/08 1306 71 18 155/67 92 Room Air 08/08 1248 98.8 68 18 147/67 93 Room Air 08/08 1111 97.9 83 18 175/79 95 Room Air Intake & Output 08/09 1600 08/09 0800 08/09 0000 Intake Total 400 810 Output Total 650 850 Balance -250 -40 Intake, IV 10 Intake, Oral 400 800 Number 0 Bowel Movements Output, Urine 650 850 Patient 285 lb Weight Exam Other Physical Findings: gen awake and alert heent ncat cvs s1, s2 lungs rare rhonchi and wheezing abd soft bs+ ext without edema Results Last 24 Hrs of Lab Results: Laboratory Tests 08/09/16 0635: Anion Gap 4 L, Estimated GFR 54 L, BUN/Creatinine Ratio 29.0 H, Lactic Acid 1.2 08/09/16 0255: Lactic Acid 2.3 H, CBC w Diff NO MAN DIFF REQ, RBC 4.00 L, MCV 96.3, MCH 32.1 H, RDW 13.5, MPV 9.5, Gran % 79.9 H, Lymphocytes % 8.1 L, Monocytes % 11.8 H, Eosinophils % 0.1, Basophils % 0.1, Absolute Granulocytes 4.0, Absolute Lymphocytes 0.4 L, Absolute Monocytes 0.6, Absolute Eosinophils 0, Absolute Basophils 0, PUBS MCHC 33.3 08/09/16 0030: Lactic Acid 3.4 H 08/08/16 2343: Lactic Acid Cancelled 08/08/16 2145: Lactic Acid 4.6 H 08/08/16 1815: Troponin I 0.04 08/08/16 1815: Lactic Acid 2.7 H 08/08/16 1459: PT 18.3 H, INR 1.75 H 08/08/16 1217: pH 7.47 H, pCO2 33 L, pO2 76 L, HCO3 23, ABG O2 Sat (Measured) 95.0 L, P-50 (Temp Corrected) N, Carboxyhemoglobin 0.7 L, O2 Concentration % .21, Temperature 97.9, O2 Delivery Method RA, Phlebotomy Draw Site LEFT RADIAL 08/08/16 1150: Anion Gap 8, Estimated GFR > 60, BUN/Creatinine Ratio 26.7 H, Glucose 121 H, Lactic Acid 2.6 H, Calcium 9.4, Magnesium 1.4 L, Total Bilirubin 2.1 H, AST 46 H, ALT 36, Alkaline Phosphatase 71, Troponin I 0.04, Qnp-L-Rmgpanuqzaj Pept 8260 H, Total Protein 6.8, Albumin 3.4 L, Globulin 3.4, Albumin/Globulin Ratio 1.0 L, CBC w Diff NO MAN DIFF REQ, RBC 4.34, MCV 95.5, MCH 32.6 H, RDW 13.6, MPV 9.5, Gran % 82.0 H, Lymphocytes % 8.1 L, Monocytes % 9.8 H, Eosinophils % 0, Basophils % 0.1, Absolute Granulocytes 3.9, Absolute Lymphocytes 0.4 L, Absolute Monocytes 0.5, Absolute Eosinophils 0, Absolute Basophils 0, PUBS MCHC 34.1, Virus Culture Pending Impression/Plan Impression/Plan Impression/Plan: Impression 76 year old woman * Influenza type B * reactive airway disease exacerbation/dyspnea Plan - steroid taper as ordered - course of tamiflu - cardiology evaluation requested by primary team - TRC/nebs DC planning within 24-48 hrs DVT prophylaxis at all times
--- NOTE | 2016-08-09 11:28 | Cons- Cardiology ---
General Information and HPI Consulting Request Date of Consult: 08/09/16 Requested By: MOLLY GARCIA,RISHI Robles Reason for Consult: Heart failure. Source of Information: patient, old records Exam Limitations: no limitations History of Present Illness: Mrs. Alpa Craig is a 76-year-old female with a history of morbid obesity, long-standing former tobacco use, COPD, pulmonary nodules, diabetes mellitus, hypertension, chronic venous insufficiency with lower extremity edema, nonalcoholic hepatic cirrhosis, chronically elevated INR, and chronic thrombocytopenia who presented to the ED 08/08/2016 following exposure to a sick contact (daughter) a few days before with worsening shortness of breath, orthopnea, and cough productive of clear to whitish sputum. She admits to feverish feelings, but denies any chills, etc. Her CXR revealed "evidence of [id number] CHF". Her ECG was read by the computer as "atrial fibrillation", but this is incorrect as there are clearly identifiable P waves consistent with sinus rhythm. She denies any known history of coronary, valvular, dysrhythmic/conduction disease or cardiomyopathy. Allergies/Medications Allergies: Coded Allergies: meclizine (RASH 08/08/16) Home Med List: Aclidinium [place] (Tudorza Pressair) 400 MCG/ACTUATION AER.POW.BA 1 PUFF DAILY COPD (Reported) Budesonide/Formoterol Fumarate (Symbicort 160-4.5 Mcg Inhaler) 160 MCG-4.5 MCG/ ACTUATION HFA.AER.AD 2 PUFF BID COPD (Reported) Cholecalciferol (Vitamin D3) (Vitamin D3) 1,000 UNIT CAPSULE 2 CAP PO DAILY REPLACEMENT (Reported) Furosemide 40 MG TABLET 1 TAB PO PRN CHF (Reported) Losartan Potassium 100 MG TABLET 1 TAB PO DAILY HTN (Reported) Review of Systems Review of Systems: 14 point system review was obtained and was noncontributory, other than for the fact that the patient admits to dry itchy skin and easy bruisability. Past History Travel History Traveled to [place] past 21 day No Medical History Blood Transfusion Hx: No Neurological: NONE EENT: NONE Cardiovascular: hypertension Respiratory: COPD Gastrointestinal: NONE Hepatic: cirrhosis Renal: NONE Musculoskeletal: TWO KNEE REPLACEMENTS Psychiatric: NONE Endocrine: DIABETIC Blood Disorders: hep ind thrombocytopenia, "SENSITIVE TO BRUISING" Cancer(s): NONE SENIOR MEDICAL DIRECTOR/Reproductive: NONE Surgical History Surgical History: non-contributory Psychosocial History Where Do You Live? Home Services at Home: None Smoking Status: Former Smoker ETOH Use: denies use, was using it before Illicit Drug Use: denies illicit drug use Exam & Diagnostic Data Vital Signs and I&O Vital Signs Date Time Temp Pulse Resp B/P Pulse O2 O2 Flow FiO2 Ox Delivery Rate 08/09 0954 91 149/99 08/09 0914 95 Room Air Room Air 08/09 0813 98.4 91 20 149/99 92 Room Air 08/09 0000 96 Room Air 08/08 2245 98.7 73 20 138/64 94 Room Air 08/08 1912 77 146/80 04 1835 Room Air Room Air 08/08 1707 98.2 77 20 156/82 94 Room Air 08/08 1600 94 Room Air 08/08 1419 97 08/08 1306 71 18 155/67 92 Room Air 08/08 1248 98.8 68 18 147/67 93 Room Air 08/08 1111 97.9 83 18 175/79 95 Room Air Intake & Output 08/09 1600 08/09 0800 08/09 0000 08/08 1600 08/08 0800 08/08 0000 Intake Total 400 810 200 Output Total 650 850 Balance -250 -40 200 Intake, IV 10 Intake, Oral 400 800 200 Number 0 Bowel Movements Output, Urine 650 850 Patient 285 lb Weight Physical Exam: Morbidly obese, elderly female in no acute distress with nasal oxygen in place. Vital signs: See above. HEENT: Normocephalic, atraumatic, EOMI, moist mucous membranes. Neck: No JVD. Bilateral carotid bruits versus transmitted systolic murmur left greater than right. Lungs: Decreased breath sounds bilaterally. Heart: S1, S2 and systolic ejection type murmur grade 2/6 best heard at the base. No gallop or rub appreciated. PMI fifth ICS at [facility]. Abdomen: Soft, nontender, positive bowel sounds. Extremities: 1+ bilateral lower extremity edema. Labs/Mina Results: Laboratory Tests 08/09 08/09 08/09 0635 0255 0030 Chemistry Sodium (137 - 145 mmol/L) 139 Potassium (3.5 - 5.1 mmol/L) 3.5 Chloride (98 - 107 mmol/L) 106 Carbon Dioxide (22 - 30 mmol/L) 29 Anion Gap (5 - 16) 4 L BUN (7 - 17 mg/dL) 29 H Creatinine (0.5 - 1.0 mg/dL) 1.0 Estimated GFR (>60 ml/min) 54 L BUN/Creatinine Ratio (7 - 25 %) 29.0 H Lactic Acid (0.7 - 2.1 mmol/L) 1.2 2.3 H 3.4 H Phosphorus (2.5 - 4.5 mg/dL) 2.9 Magnesium (1.6 - 2.3 mg/dL) 1.7 Hematology CBC w Diff NO MAN DIFF REQ WBC (4.8 - 10.8 /CUMM) 5.0 RBC (4.20 - 5.40 /CUMM) 4.00 L Hgb (12.0 - 16.0 G/DL) 12.8 Hct (37 - 47 %) 38.5 MCV (81.0 - 99.0 FL) 96.3 MCH (27.0 - 31.0 PG) 32.1 H RDW (11.5 - 14.5 %) 13.5 Plt Count (130 - 400 /CUMM) 94 L MPV (7.4 - 10.4 FL) 9.5 Gran % (42.2 - 75.2 %) 79.9 H Lymphocytes % (20.5 - 51.1 %) 8.1 L Monocytes % (1.7 - 9.3 %) 11.8 H Eosinophils % (0 - 5 %) 0.1 Basophils % (0.0 - 2.0 %) 0.1 Absolute Granulocytes (1.4 - 6.5 /CUMM) 4.0 Absolute Lymphocytes (1.2 - 3.4 /CUMM) 0.4 L Absolute Monocytes (0.10 - 0.60 /CUMM) 0.6 Absolute Eosinophils (0.0 - 0.7 /CUMM) 0 Absolute Basophils (0.0 - 0.2 /CUMM) 0 PUBS MCHC (33.0 - 37.0 G/DL) 33.3 08/08 08/08 08/08 08/08 08/08 2343 2145 1815 1815 1459 Chemistry Lactic Acid (0.7 - 2.1 mmol/L) Cancelled 4.6 H 2.7 H Troponin I (< 0.11 ng/ml) 0.04 Coagulation PT (9.4 - 12.5 SEC) 18.3 H INR (0.90 - 1.19) 1.75 H 08/08 04/ 1217 1150 Blood Gas pH (7.35 - 7.45 PH) 7.47 H pCO2 (35 - 45 TORR) 33 L pO2 (80 - 100 TORR) 76 L HCO3 (21 - 28 MEQ/L) 23 ABG O2 Sat (Measured) (>96.0 %) 95.0 L P-50 (Temp Corrected) N Carboxyhemoglobin (1.5 - 5.0 %) 0.7 L O2 Concentration % .21 Temperature (97.0 - 100.0 FARH) 97.9 O2 Delivery Method RA Chemistry Sodium (137 - 145 mmol/L) 140 Potassium (3.5 - 5.1 mmol/L) 3.7 Chloride (98 - 107 mmol/L) 106 Carbon Dioxide (22 - 30 mmol/L) 25 Anion Gap (5 - 16) 8 BUN (7 - 17 mg/dL) 24 H Creatinine (0.5 - 1.0 mg/dL) 0.9 Estimated GFR (>60 ml/min) > 60 BUN/Creatinine Ratio (7 - 25 %) 26.7 H Glucose (65 - 99 mg/dL) 121 H Lactic Acid (0.7 - 2.1 mmol/L) 2.6 H Calcium (8.4 - 10.2 mg/dL) 9.4 Magnesium (1.6 - 2.3 mg/dL) 1.4 L Total Bilirubin (0.2 - 1.3 mg/dL) 2.1 H AST (14 - 36 U/L) 46 H ALT (9 - 52 U/L) 36 Alkaline Phosphatase (<127 U/L) 71 Troponin I (< 0.11 ng/ml) 0.04 Vma-[id number]-Lhbalwjifdm Pept (<125 pg/mL) 8260 H Total Protein (6.3 - 8.2 g/dL) 6.8 Albumin (3.5 - 5.0 g/dL) 3.4 L Globulin (1.9 - 4.2 gm/dL) 3.4 Albumin/Globulin Ratio (1.1 - 2.2 %) 1.0 L Hematology CBC w Diff NO MAN DIFF REQ WBC (4.8 - 10.8 /CUMM) 4.8 RBC (4.20 - 5.40 /CUMM) 4.34 Hgb (12.0 - 16.0 G/DL) 14.1 Hct (37 - 47 %) 41.5 MCV (81.0 - 99.0 FL) 95.5 MCH (27.0 - 31.0 PG) 32.6 H RDW (11.5 - 14.5 %) 13.6 Plt Count (130 - 400 /CUMM) 98 L MPV (7.4 - 10.4 FL) 9.5 Gran % (42.2 - 75.2 %) 82.0 H Lymphocytes % (20.5 - 51.1 %) 8.1 L Monocytes % (1.7 - 9.3 %) 9.8 H Eosinophils % (0 - 5 %) 0 Basophils % (0.0 - 2.0 %) 0.1 Absolute Granulocytes (1.4 - 6.5 /CUMM) 3.9 Absolute Lymphocytes (1.2 - 3.4 /CUMM) 0.4 L Absolute Monocytes (0.10 - 0.60 /CUMM) 0.5 Absolute Eosinophils (0.0 - 0.7 /CUMM) 0 Absolute Basophils (0.0 - 0.2 /CUMM) 0 PUBS MCHC (33.0 - 37.0 G/DL) 34.1 Miscellaneous Phlebotomy Draw Site LEFT RADIAL Serology Virus Culture Pending Diagnostic Data EKG Results (08/08/2016) sinus rhythm, multiple PVCs, IVCD. CXR Results (08/08/2016): Persistent stable moderate enlargement of the cardiomediastinal silhouette, superimposed mild pulmonary venous hypertension and possible minimal interstitial edema, consistent with [id number] CHF related changes are noted. Note is also made of small left-sided pleural effusion. The size of the effusion appears to have increased since the prior study. The visualized upper abdomen is unremarkable. No significant change since prior study except for mild interval increase in size of the left-sided pleural effusion. Assessment/Plan Assessment/Plan Mrs. Craig is an elderly female with a history of morbid obesity, long-standing former tobacco use, COPD, pulmonary nodules, DM, HTN, chronic venous insufficiency with lower extremity edema, nonalcoholic hepatic cirrhosis, chronically elevated INR, and chronic thrombocytopenia who presented to the ED 08/08/2016 following exposure to a sick contact a few days prior with worsening shortness of breath, orthopnea, and cough productive of clear to whitish sputum with "Quik Flu" positive for influenza B, CXR evidence of mild-to -moderate HF, elevated NT-PRO BNP, and heart murmur consistent with aortic stenosis that does not sound severe by auscultation. Recommendations: * Continue on telemetry, follow-up troponins, repeat ECG. * Strict inputs and outputs, daily weights, etc. * Diuresis with IV furosemide 40 mg daily and reassess the need for further IV diuresis in the morning. Monitor fluid intake. * Repeat CXR in a.m. * Echocardiogram to assess left ventricular systolic/diastolic function, exclude segmental wall motion abnormalities, assess degree of aortic stenosis, assess right ventricular function, estimated PA systolic pressure, etc., * Continue angiotensin receptor juani. * Continue Tamiflu, TRC/nebs, steroids, etc. as per pulmonary medicine. * Prophylaxis for DVT. Note chronically elevated INR, likely secondary to cirrhosis. Further recommendations will follow, Thank you. Consult Acknowledgment - Thank you for your consult request.
--- NOTE | 2016-08-09 14:16 | Patient Discharge Instructions ---
Discharge Instructions General Discharge Information You were seen/treated for: Influenzae and congestive heart failure Special Instructions: Please follow-up with your PCP within a week of discharge Please follow-up with your kennel keeper within a week from discharge Please follow-up with your auto body technician within a week of discharge Please take the medication as advised Diet Recommended Diet: Heart Healthy, fluid restriction Activity Full Activity/No Limits: No (as tolerated) Activity Self Limited: Yes Acute Coronary Syndrome Inclusion Criteria At DC or during hospital stay patient has or had the following: ACS DIAGNOSIS No Discharge Core Measures Meds if any: Prescribed or Continued at Discharge Meds if any: NOT Prescribed or Continued at Discharge Congestive Heart Failure Inclusion Criteria At DC or during hospital stay patient has or had the following: CHF DIAGNOSIS Yes Discharge Core Measures Meds if any: Prescribed or Continued at Discharge WON/ARB for EF <40% Yes Meds if any: NOT Prescribed or Continued at Discharge Cerebrovascular accident Inclusion Criteria At DC or during hospital stay patient has or had the following: CVA/TIA Diagnosis No Discharge Core Measures Meds if any: Prescribed or Continued at Discharge Meds if any: NOT Prescribed or Continued at Discharge Venous thromboembolism Inclusion Criteria VTE Diagnosis No VTE Type NONE VTE Confirmed by (Test) NONE Discharge Core Measures - Per Current guidelines, there needs to be overlap - treatment for the first 5 days of Warfarin therapy. - If discharged on Warfarin prior to 5 days of - overlap therapy, the patient will need to be - assessed for post discharge needs including - *Post discharge parental anticoagulation - *Warfarin and/or parental anticoagulation education - *Follow up date to check INR post discharge At least 5 days overlap therapy as Inpatient No Meds if any: Prescribed or Continued at Discharge Warfarin No Note: Overlap Therapy is Warfarin and Anticoagulant Meds if any: NOT Prescribed or Continued at Discharge
--- NOTE | 2016-08-09 14:35 | Discharge Summary ---
Visit Information Visit Dates Admission Date: 08/08/16 Discharge Date: 08/11/2016 Hospital Course Course Attending Physician: RISHI BARNES MD Primary Care Physician: RISHI BARNES MD Hospital Course: Patient is a 76-year-old female, with significant past medical history of hypertension, COPD, cirrhosis of the liver, solitary pulmonary nodule (last CT scan 3 yrs ago/2013), type 2 diabetes mellitus , presented with chief complaints of generalized weakness, shortness of breath, dry cough and chills since last 4 days. Vital signs at the time of admission -temperature 98.4, pulse 91, respiratory rate 20, blood pressure 149/99, SPO2 92% Pertinent labs at the time of admission-granulocyte 82%, Platelet -98, Lactic acid 2.6, BUN -24, creatinin -0.9, Mag -1.4, Total Bili -2.1, Pro BNP -8260, Flu B +, ABG -PCO2 33,PO2-76, SaO2-95 CXR -Evidence of brfg-wf-sjxnrkal CHF Plan - Influenza B positive We gave her tab Tamiflu 30 mgs BID x 5 days ( 08/09/2015 PM -08/13/2016 AM), low dose steroids and monitored her on telemetry floor. Initially, lactic acid was high, but later on came down to normal. Sputum culture was negative. We discharged with Advised to follow-up with her PCP within a week of discharge. We also gave her prescription for tapering dose of steroid. Acute on Chronic CHF Chest x-ray showed evidence of hcbc-[id number]-[id number] pulmonary edema.we gave IV inj Lasix initially. We took cardiology consult and they advised for echocardiogram, which showed mild to moderate LVH, LVEF -55%,stage 1 diastolic dysfunction, Mild -Mod LAD, mild MS,Mild ,Right ventricular systolic pressure estimated at 30 mmHg. We continued her on tab Lasix 40 mgs PO OD/PRN. We discharged her with advised to follow-up with senior copywriter as an outpatient. Allergies: Coded Allergies: meclizine (RASH 08/08/16) Disposition Summary Disposition Principal Diagnosis: Influenza B Acute on chronic CHF Additional Diagnosis: Hypertension Morbid obesity Type 2 diabetes mellitus controlled with diet Cirrhosis of the liver Discharge Disposition: home or self care Discharge Instructions General Discharge Information Code Status: Full Code Patient's Diet: Diabetic diet, Heart healthy diet, with fluid restriction Patient's Activity: As tolerated Follow-Up Instructions/Appts: Please follow-up with your PCP/relay technician within a week of discharge for further management Please follow-up with the senior copywriter for further management of the CHF. Medications at Discharge Discharge Medications: Continue taking these medications: Furosemide (Furosemide) 40 MG TABLET 1 Tablet ORAL NEEDED Qty = 30 Comments: given 08/11/16 @ 0930 Losartan Potassium (Losartan Potassium) 100 MG TABLET 1 Tablet ORAL DAILY Qty = 90 Comments: given 08/11/16 @ 0930 Cholecalciferol (Vitamin D3) (Vitamin D3) 1,000 UNIT CAPSULE 2 Capsule ORAL DAILY Comments: given 08/11/16 @ 30 Aclidinium [place] (Tudorza Pressair) 400 MCG/ACTUATION AER.POW.BA 1 PUFF DAILY Qty = 1 Comments: not given Budesonide/Formoterol Fumarate (Symbicort 160-4.5 Mcg Inhaler) 160 MCG-4.5 MCG/ ACTUATION HFA.AER.AD 2 PUFF TWICE DAILY Comments: given 08/11/16 @ 0930 Start taking the following new medications: Oseltamivir Phosphate (Tamiflu) 30 MG CAPSULE 30 Milligram ORAL 0700,1900 Qty = 6 No Refills Comments: given 08/11/16 @ 07 Prednisone (Prednisone) 20 MG TABLET 40 Milligram ORAL See Instructions Qty = 10 No Refills Instructions: 40MG ONCE A DAY FOR TODAY (08/11/2016) 30MG ONCE A DAY FOR TWO DAYS (08/12/2016 -08/13/2016) 20MG ONCE A DAY FOR TWO DAYS (08/14/2016 - 08/15/2016) 10MG ONCE A DAY FOR TWO DAYS (08/16/2016 - 08/17/2016) THAN TALK TO YOUR PCP FOR FURTHER MANAGEMENT. Comments: given 08/11/16 @ 0930 Copies To: HARRIET GARCIA,KAELA Robles Attending MD Review Statement Documenting Attending: ARIE AHMADI MD Other Findings: In addition to the diagnosis mentioned earlier. Patient has stage I diastolic dysfunction CHF and she will be managed on Lasix and followed outpatient by cardiology
[2016-08-09 16:26] VITALS: BP 148/68
--- NOTE | 2016-08-09 21:25 | ECHOCARDIOGRAM REPORT ---
WANDA COWAN Age: 76 : 1940 Gender: F Exam Date: 08/09/2016 08:33 Exam Location: [address] [facility] Ht (in): 66 Wt (lb): 285 BSA: 2.53 BP: 138 / 64 Ordering Physician: DARIUS IRBY MD Referring Physician: DARIUS IRBY MD Technologist: Skylar Auguste Room Number: [id number] Indications: HEART FAILURE, HYPERTENSION Rhythm: Sinus Technical Quality: Poor FINDINGS Left Ventricle Normal size left ventricle. Mild to moderate concentric left ventricular hypertrophy. No obvious regional wall motion abnormalities. Normal left ventricular ejection fraction visually estimated at 55%. Abnormal relaxation filling pattern of the left ventricle for age (stage 1 diastolic dysfunction). Right Ventricle Right ventricle at upper limits of normal. Right Atrium Right atrium not well visualized, grossly normal. Left Atrium Mild to moderate left atrial dilatation. Mitral Valve Mild mitral annular calcification. Mitral valve mildly thickened. Mild mitral stenosis. Trace mitral regurgitation. Aortic Valve Diffuse thickening of the aortic valve cusps with reduced excursion. Mild aortic stenosis. No aortic regurgitation. Tricuspid Valve Tricuspid valve not well visualized, grossly normal. Mild tricuspid regurgitation. Right ventricular systolic pressure estimated at 30 mmHg. Pulmonic Valve Pulmonic valve not well visualized. No pulmonic regurgitation. Pericardium No pericardial effusion. Great Vessels Normal size aortic root. CONCLUSIONS Normal size left ventricle. Mild to moderate concentric left ventricular hypertrophy. No obvious regional wall motion abnormalities. Normal left ventricular ejection fraction visually estimated at 55%. Abnormal relaxation filling pattern of the left ventricle for age (stage 1 diastolic dysfunction). Right ventricle at upper limits of normal. Right atrium not well visualized, grossly normal. Mild to moderate left atrial dilatation. Mild mitral stenosis. Trace mitral regurgitation. Mild aortic stenosis. Mild tricuspid regurgitation. Right ventricular systolic pressure estimated at 30 mmHg. Laci Rosales M.D. (Electronically Signed) Final Date: 09 August 2016 21:25 MEASUREMENTS (Male / Female) Normal Values 2D ECHO LV Diastolic Diameter PLAX 5.1 cm 4.2 - 5.9 / 3.9 - 5.3 cm LV Systolic Diameter PLAX 3.5 cm 2.1 - 4.0 cm LV Fractional Shortening PLAX 31.4 % 25 - 46 % LV Ejection Fraction 2D Teich 58.9 % IVS Diastolic Thickness 1.4 cm LVPW Diastolic Thickness 1.2 cm LV Relative Wall Thickness 0.5 RV Internal Dim ED PLAX 3.2 cm 1.9 - 3.8 cm LVOT Diameter 2.4 cm Aortic Root Diameter 2.9 cm LA Systolic Diameter LX 3.8 cm 3.0 - 4.0 / 2.7 - 3.8 cm LA Volume 61.0 cm 18 - 58 / 22 - 52 cm Ascending Aorta Diameter 3.4 cm DOPPLER AV Peak Velocity 240.0 cm/s AV Peak Gradient 23.0 mmHg AV Mean Velocity 182.0 cm/s AV Mean Gradient 14.0 mmHg AV Velocity Time Integral 61.7 cm LVOT Peak Velocity 90.2 cm/s LVOT Peak Gradient 3.3 mmHg LVOT Mean Velocity 66.9 cm/s LVOT Mean Gradient 2.0 mmHg LVOT Velocity Time Integral 24.7 cm LVOT Stroke Volume 111.7 cm AV Area Cont Eq vti 1.8 cm AV Area Cont Eq pk 1.7 cm MV Peak Velocity 141.0 cm/s MV Peak Gradient 8.0 mmHg MV Mean Velocity 96.6 cm/s MV Mean Gradient 4.0 mmHg Mitral E Point Velocity 108.0 cm/s Mitral A Point Velocity 121.0 cm/s Mitral E to A Ratio 0.9 MV PHT Velocity 145.0 cm/s MV Deceleration Ransom 460.0 cm/s MV Pressure Half Time 94.6 ms MV Area PHT 2.3 cm MV Deceleration Time 296.0 ms MR Peak Velocity 216.0 cm/s MR Peak Gradient 18.7 mmHg TR Peak Velocity 251.0 cm/s TR Peak Gradient 25.2 mmHg Right Atrial Pressure 5.0 mmHg Pulmonary Artery Systolic Pressu 30.2 mmHg Right Ventricular Systolic Press 30.2 mmHg PV Peak Velocity 139.0 cm/s PV Peak Gradient 7.7 mmHg PV Mean Velocity 101.0 cm/s PV Mean Gradient 5.0 mmHg PV Velocity Time Integral 31.8 cm LV E' Lateral Velocity 9.0 cm/s Mitral E to LV E' Lateral Ratio 12.0 LV E' Septal Velocity 7.8 cm/s Mitral E to LV E' Septal Ratio 13.8
[2016-08-09 23:11] VITALS: BP 150/78
--- NOTE | 2016-08-09 23:14 | RADIOLOGY REPORT ---
EXAMINATION: XR CHEST CLINICAL INFORMATION: Congestive heart failure. Shortness of breath. COMPARISON: Chest x-ray 08/08/2016. 11/22/2015. CT chest 12/11/2015 TECHNIQUE: 2 views of the chest were obtained. FINDINGS: Small nodules seen on the CT of chest 12/11/2015 the lungs bilaterally are better demonstrated on CAT scan than plain film chest. No acute change. No pulmonary vascular congestion. No infiltrate or pleural effusion. Heart size is normal. Cardiac and mediastinal contours are normal. IMPRESSION: No acute abnormality the chest.
[2016-08-10 08:01] VITALS: BP 170/88
--- NOTE | 2016-08-10 11:42 | PN- Pulmonary ---
Subjective HPI/Critical Care Issues: Patient seen and examined this morning. She gets significant relief from Mucinex. Doing very well still with rhonchi however significant improvement in dyspnea. No nausea no vomiting no diarrhea no constipation or headache no chest pain. Objective Current Medications: Current Medications Sig/Estephania Start time Last Medication Dose Route Stop Time Status Admin Albuterol Sulfate 3 ML EVERY 4 HRS/AWAKE 08/08 2000 AC 08/10 INH 0828 Benzonatate 100 MG TID PRN 08/09 1415 AC PO Budesonide/ 2 PUF BID 08/08 1425 AC 08/10 Formoterol Fumarate INH 1007 Cholecalciferol 1,000 IU DAILY 08/09 1000 AC 08/10 PO 1007 Docusate Sodium 100 MG BID PRN 08/08 1445 AC PO Enoxaparin Sodium 40 MG Q24H 08/08 1500 AC 08/09 SC 1649 Furosemide 40 MG DAILY 08/09 1000 AC 08/10 IV 1007 Guaifenesin 600 MG Q12 PRN 08/09 2230 AC 08/09 PO 2227 Ibuprofen 200 MG Q6P PRN 08/08 1445 DC PO Ibuprofen 400 MG Q6P PRN 08/08 1430 DC 08/09 PO 0957 Ipratropium [place] 2.5 ML EVERY 4 HRS/AWAKE 08/09 0800 AC 08/10 INH 0828 Losartan Potassium 100 MG DAILY 08/08 1425 AC 08/10 PO 1007 Magnesium Oxide 400 MG BID 08/09 1411 AC 08/10 PO 1007 Nystatin 1 TARIK BID 08/08 2204 AC 08/10 TOP 1012 Oseltamivir Phosphate 30 MG 0700,1900 08/09 0700 AC 08/10 PO 08/13 0659 0629 Oxycodone/ 1 TAB Q6P PRN 08/08 1430 AC Acetaminophen PO Potassium Chloride 40 MEQ BID 08/09 1411 DC 08/09 PO 08/09 2201 2150 Prednisone 10 MG DAILY 08/11 1000 AC PO 08/11 1001 Prednisone 20 MG DAILY 08/10 1000 DC 08/10 PO 08/10 1001 1007 Tiotropium [place] 1 PUF DAILY 08/08 1426 AC 08/10 INH 1007 Vital Signs & I&O Last 24 Hrs of Vitals and I&O: Vital Signs Date Time Temp Pulse Resp B/P Pulse O2 O2 Flow FiO2 Ox Delivery Rate 08/10 1007 70 170/88 08/10 0832 94 Room Air Room Air 04/08 0801 97.1 70 18 170/88 95 Room Air 08/10 0800 Room Air 08/10 0000 Room Air 08/09 2311 97.9 88 20 150/78 95 Room Air 08/09 1626 98.8 86 20 148/68 98 Room Air 08/09 1604 96 Room Air Intake & Output 08/10 1600 08/10 0800 04 0000 Intake Total 250 720 Output Total 600 Balance 250 120 Intake, IV 0 Intake, Oral 250 720 Number 0 Bowel Movements Output, Urine 600 Patient 287 lb Weight Exam Other Physical Findings: gen awake and alert heent ncat cvs s1, s2 lungs rare rhonchi and wheezing abd soft bs+ ext without edema Results Last 24 Hrs of Lab Results: Laboratory Tests 08/10/16 06: Anion Gap 7, Estimated GFR 54 L, BUN/Creatinine Ratio 35.0 H Impression/Plan Impression/Plan Impression/Plan: Impression 76 year old woman * Influenza type B * reactive airway disease exacerbation/dyspnea * Hypomagnesemia Plan - steroid taper as ordered - course of tamiflu - Replete magnesium and repeat or add on level today - cardiology evaluation requested by primary team - TRC/nebs DC planning within 24-48 hrs DVT prophylaxis at all times
--- NOTE | 2016-08-10 12:41 | PN- Att Addend ---
Attending Addendum Attending Brief Note Patient reports improved breathing symptoms General Appearance: Alert, No Acute Distress Skin: Grossly normal HEENT: PEERLA Neck: Supple, No JVD Cardiovascular: Regular Rate, Normal S1, Normal S2, No Murmurs Lungs: Expiratory wheeze diffuse Abdomen: Normal Bowel Sounds, Soft, No Tenderness Neurological: Normal Speech, Strength at 5/5 X4 Ext, Cranial Nerves 3-12 NL, Reflexes 2+ Extremities: No Clubbing, No Cyanosis, No Edema Vascular: Normal Pulses Assessment Improved breathing symptoms on Tamiflu and prednisone. She is currently on IV Lasix. Echogram is normal. We will continue to monitor symptoms for next 24 hours. Plan Start prednisone 40 mg with gradual taper Change Lasix to by mouth in a.m. Tamiflu for 5 days TRC and nebs Continue all other home meds and DVT prophylaxis Current Medications Sig/Estephania Start time Last Medication Dose Route Stop Time Status Admin Albuterol Sulfate 3 ML EVERY 4 HRS/AWAKE 08/08 2000 AC 08/10 INH 0828 Benzonatate 100 MG TID PRN 08/09 1415 AC PO Budesonide/ 2 PUF BID 08/08 1425 AC 08/10 Formoterol Fumarate INH 1007 Cholecalciferol 1,000 IU DAILY 08/09 1000 AC 08/10 PO 1007 Docusate Sodium 100 MG BID PRN 08/08 1445 AC PO Enoxaparin Sodium 40 MG Q24H 08/08 1500 AC 08/09 SC 1649 Furosemide 40 MG DAILY 08/09 1000 AC 08/10 IV 1007 Guaifenesin 600 MG Q12 PRN 08/09 2230 AC 08/09 PO 2227 Ibuprofen 200 MG Q6P PRN 08/08 1445 DC PO Ibuprofen 400 MG Q6P PRN 08/08 1430 DC 08/09 PO 0957 Ipratropium [place] 2.5 ML EVERY 4 HRS/AWAKE 08/09 0800 AC 08/10 INH 0828 Losartan Potassium 100 MG DAILY 08/08 1425 AC 08/10 PO 1007 Magnesium Oxide 400 MG BID 08/09 1411 AC 08/10 PO 1007 Nystatin 1 TARIK BID 08/08 2204 AC 08/10 TOP 1012 Oseltamivir Phosphate 30 MG 0700,1900 08/09 0700 AC 08/10 PO 08/13 0659 0629 Oxycodone/ 1 TAB Q6P PRN 08/08 1430 AC Acetaminophen PO Potassium Chloride 40 MEQ BID 08/09 1411 DC 08/09 PO 08/09 2201 2150 Prednisone 10 MG DAILY 08/11 1000 AC PO 08/11 1001 Prednisone 20 MG DAILY 08/10 1000 DC 08/10 PO 08/10 1001 1007 Tiotropium [place] 1 PUF DAILY 08/08 1426 AC 08/10 INH 1007 Laboratory Tests 08/10 0605 Chemistry Sodium (137 - 145 mmol/L) 142 Potassium (3.5 - 5.1 mmol/L) 4.0 Chloride (98 - 107 mmol/L) 107 Carbon Dioxide (22 - 30 mmol/L) 28 Anion Gap (5 - 16) 7 BUN (7 - 17 mg/dL) 35 H Creatinine (0.5 - 1.0 mg/dL) 1.0 Estimated GFR (>60 ml/min) 54 L BUN/Creatinine Ratio (7 - 25 %) 35.0 H Vital Signs Date Time Temp Pulse Resp B/P Pulse O2 O2 Flow FiO2 Ox Delivery Rate 08/10 1007 70 170/88 08/10 0832 94 Room Air Room Air 08/10 0801 97.1 70 18 170/88 95 Room Air 08/10 0800 Room Air 08/10 0000 Room Air 08/09 2311 97.9 88 20 150/78 95 Room Air 08/09 1626 98.8 86 20 148/68 98 Room Air 08/09 1604 96 Room Air
[2016-08-10 16:18] VITALS: BP 148/68
[2016-08-10 22:52] VITALS: BP 124/68
[2016-08-11 08:15] VITALS: BP 140/90
[2016-08-11 09:22] VITALS: BP 130/64
--- NOTE | 2016-08-11 09:55 | PN- Housestaff ---
Subjective Follow-up For: Acute on chronic CHF Influenza B Complaints: no complaints Tele-Events Since Last Visit: No any overnight events Subjective: Patient is seen and examined at the bedside. She was not having any active complaints. We discussed about how to manage the CHF and flu. Review of Systems Constitutional: Denies: no symptoms. Cardiovascular: Reports: edema, peripheral edema. Respiratory: Reports: cough, orthopnea. Gastrointestinal: Denies: no symptoms. Objective Last 24 Hrs of Vital Signs/I&O Vital Signs Date Time Temp Pulse Resp B/P Pulse O2 O2 Flow FiO2 Ox Delivery Rate 08/11 921 130/64 08/12 0715 98.2 69 20 140/90 96 Room Air 08/11 0802 96 Room Air 08/11 0000 96 Room Air 08/10 2252 98.0 89 18 124/68 94 Room Air Intake & Output 08/11 1600 08/11 0800 / 0000 Intake Total 200 1080 Output Total 800 700 Balance -600 380 Intake, IV Intake, Oral 200 1080 Output, Urine 800 700 Patient 129.189 kg Weight Physical Exam General Appearance: Alert, Oriented X3, Cooperative, No Acute Distress Cardiovascular: Normal S1, Normal S2, murmur present Lungs: bilateral mild basilar crackles Abdomen: Soft, distended Extremities: bilateral pitting edema Current Medications: Current Medications Sig/Estephania Start time Last Medication Dose Route Stop Time Status Admin Albuterol Sulfate 3 ML EVERY 4 HRS/AWAKE 08/08 2000 DCD 08/11 INH 0757 Benzonatate 100 MG TID PRN 08/09 1415 DCD 08/11 PO 1150 Budesonide/ 2 PUF BID 08/08 1425 DCD 08/11 Formoterol Fumarate INH 0923 Cholecalciferol 1,000 IU DAILY 08/09 1000 DCD 08/11 PO 0922 Docusate Sodium 100 MG BID PRN 08/08 1445 DCD PO Enoxaparin Sodium 40 MG Q24H 08/08 1500 DCD 08/10 SC 1525 Furosemide 40 MG DAILY 08/11 1000 DCD 08/11 PO 0922 Guaifenesin 600 MG .STK-MED ONE 08/10 2120 DC PO 08/10 2121 Guaifenesin 600 MG Q12 PRN 08/09 2230 DCD 08/11 PO 0922 Ipratropium [place] 2.5 ML EVERY 4 HRS/AWAKE 08/09 0800 DCD 08/11 INH 0757 Losartan Potassium 100 MG DAILY 08/08 1425 DCD 08/11 PO 0922 Magnesium Oxide 400 MG BID 08/09 1411 DCD 08/11 PO 0922 Nystatin 1 TARIK BID 08/08 2204 DCD 08/11 TOP 0922 Oseltamivir Phosphate 30 MG 0700,1900 08/09 0700 DCD 08/11 PO 08/13 0659 0656 Oxycodone/ 1 TAB Q6P PRN 08/08 1430 DCD Acetaminophen PO Prednisone 10 MG DAILY 08/16 1000 DCD PO 08/18 0959 Prednisone 20 MG DAILY 08/14 1000 DCD PO 08/16 0959 Prednisone 30 MG DAILY 08/12 1000 DCD PO 08/14 0959 Prednisone 40 MG DAILY 08/11 1000 DCD 08/11 PO 08/12 0959 0922 Tiotropium [place] 1 PUF DAILY 08/08 1426 DCD 08/11 INH 0923 Last 24 Hrs of Lab/Mina Results Last 24 Hrs of Labs/Mics: Laboratory Tests 08/11/16 0950: Sodium Cancelled, Potassium Cancelled, Chloride Cancelled, Carbon Dioxide Cancelled, Anion Gap Cancelled, BUN Cancelled, Creatinine Cancelled, BUN/ Creatinine Ratio Cancelled, Magnesium Cancelled Assessment/Plan Assessment: Assessment: Patient is a 76-year-old female, with significant past medical history of hypertension, COPD, cirrhosis of the liver, solitary pulmonary nodule (last CT scan 3 yrs ago/2013), type 2 diabetes mellitus , presented with chief complaints of generalized weakness, shortness of breath, dry cough and chills since last 4 days. Pertinent labs -granulocyte 82%, Platelet -98, Lactic acid 2.6, BUN -24, creatinin -0.9, Mag -1.4, Total Bili -2.1, Pro BNP -8260, Flu B +, ABG -PCO2 33,PO2-76, SaO2-95 CXR -Evidence of [id number] CHF Vital signs -temperature 98.4, pulse 91, respiratory rate 20, blood pressure 149 /99, SPO2 92% Plan - Discharge today Influenza B positive - * We will continue tab Tamiflu 30 mgs BID x 5 days ( 08/09/2015 PM -08/13/2016 AM) Acute CHF * We will continue tablet Lasix 40 mgs OD * Advised to follow-up with package worker as an outpatient COPD * Tablet prednisone 40 milligrams for 3 days, 30 milligrams for 3 days, 20 milligrams for 3 days, 10 milligrams for 3 days. * Advised to follow-up with the counter clerk [employer] as an outpatient Lactic Acidosis -recovered Type 2 diabetes mellitus * not on medication, we will continue to treat with diet. Vitamin D deficiency * We will continue cap Vitamin D3 1000U 2 cap PO OD Hypomagnesemia/ Hypokalemia - * We will continue Cap Mag 400mg BID * We will regularly monitor it as an outpatient Diet -carbohydrate type II/heart healthy diet Problem List: 1. CHF (congestive heart failure) 2. Influenza Pain Ratin Pain Location: Not applicable Pain Goal: Remain pain free Pain Plan: Avoid NSAIDs Tomorrow's Labs & Rationales: Not required as patient is discharged DVT/Prophylaxis: mechanical, Ambulation
[2016-08-11] MEDS ORDERED: PREDNISONE20 M1 PO (10:39)
[2016-08-11] MEDS ORDERED: TAMIFLU30 M1 PO (10:39)
--- NOTE | 2016-08-11 11:16 | PN- Pulmonary ---
Subjective HPI/Critical Care Issues: pt seen and examined feeling better awaiting dc no new events ambulating well Objective Current Medications: Current Medications Sig/Estephania Start time Last Medication Dose Route Stop Time Status Admin Albuterol Sulfate 3 ML EVERY 4 HRS/AWAKE 08/08 2000 AC 08/11 INH 0757 Benzonatate 100 MG TID PRN 08/09 1415 AC 08/10 PO 1804 Budesonide/ 2 PUF BID 08/08 1425 AC 08/11 Formoterol Fumarate INH 0923 Cholecalciferol 1,000 IU DAILY 08/09 1000 AC 08/11 PO 0922 Docusate Sodium 100 MG BID PRN 08/08 1445 AC PO Enoxaparin Sodium 40 MG Q24H 08/08 1500 AC 08/10 SC 1525 Furosemide 40 MG DAILY 08/11 1000 AC 08/11 PO 0922 Furosemide 40 MG DAILY 08/09 1000 DC 08/10 IV 1007 Guaifenesin 600 MG .STK-MED ONE 08/101 DC PO 08/10 2122 Guaifenesin 600 MG Q12 PRN 08/09 2230 AC 08/10 PO 2124 Ipratropium [place] 2.5 ML EVERY 4 HRS/AWAKE 08/09 0800 AC 08/11 INH 0757 Losartan Potassium 100 MG DAILY 08/08 1425 AC 08/11 PO 0922 Magnesium Oxide 400 MG BID 08/09 1411 AC 08/11 PO 0922 Nystatin 1 TARIK BID 08/08 2204 AC 08/11 TOP 0922 Oseltamivir Phosphate 30 MG 0700,1900 08/09 0700 AC 08/11 PO 08/13 0659 0656 Oxycodone/ 1 TAB Q6P PRN 08/08 1430 AC Acetaminophen PO Patient Medication 1 UNIT ONE NR 08/10 1315 DC Teaching ED 08/10 1330 Prednisone 10 MG DAILY 08/16 1000 AC PO 08/18 0959 Prednisone 20 MG DAILY 08/14 1000 AC PO 08/16 0959 Prednisone 30 MG DAILY 08/12 1000 AC PO 08/14 0959 Prednisone 10 MG DAILY 08/11 1000 CAN PO 08/11 1001 Prednisone 40 MG ONCE 08/11 1000 CAN PO 08/18 0959 Prednisone 40 MG DAILY 08/11 1000 AC 08/11 PO 08/12 0959 0922 Prednisone 20 MG ONCE ONE 08/10 1330 DC 08/10 PO 08/10 1331 1525 Prednisone 40 MG DAILY 08/10 1302 DC PO 08/19 1301 Tiotropium [place] 1 PUF DAILY 08/08 1426 AC 08/11 INH 0923 Vital Signs & I&O Last 24 Hrs of Vitals and I&O: Vital Signs Date Time Temp Pulse Resp B/P Pulse O2 O2 Flow FiO2 Ox Delivery Rate 08/11 921 130/64 08/11 0815 98.2 69 20 140/90 96 Room Air 08/11 0802 96 Room Air 08/11 0000 96 Room Air 08/10 2252 98.0 89 18 124/68 94 Room Air 08/10 1624 97 Room Air Room Air 08/10 1618 98.5 72 20 148/68 96 Room Air Intake & Output 08/11 1600 08/11 0800 08/11 0000 Intake Total 200 1080 Output Total 800 700 Balance -600 380 Intake, IV Intake, Oral 200 1080 Output, Urine 800 700 Patient 285 lb Weight Exam Other Physical Findings: gen awake and alert heent ncat cvs s1, s2 lungs rare rhonchi and wheezing abd soft bs+ ext without edema Impression/Plan Impression/Plan Impression/Plan: Impression 76 year old woman * Influenza type B * reactive airway disease exacerbation/dyspnea * Hypomagnesemia Plan - steroid taper as ordered - course of tamiflu - Replete magnesium and repeat or add on level today - cardiology evaluation requested by primary team - TRC/bassam stable for dc from pulmonary perspective - to follow with Dr. Padilla. DVT prophylaxis at all times
== END 2016-08-11 11:54 | DRG 292 ==
LOC: ENRESERVTM → ENRESERVDT → ERH 11:02 → ERHI 13:28 → 1NO 13:28 → ENPENDDIS 13:28 → 1NO 15:15
PROVIDERS: Internal Medicine Cardiovascular Disease; Physician Assistant; ADMIT Internal Medicine Pulmonary Disease
DX: I11.0 Hypertensive heart disease with heart failure (principal); E87.2 Acidosis; D69.59 Other secondary thrombocytopenia; J44.9 Chronic obstructive pulmonary disease, unspecified; I50.33 Acute on chronic diastolic (congestive) heart failure; Z68.42 Body mass index [BMI] 45.0-49.9, adult; E83.42 Hypomagnesemia; E66.01 Morbid (severe) obesity due to excess calories; E11.9 Type 2 diabetes mellitus without complications; K74.60 Unspecified cirrhosis of liver; K75.81 Nonalcoholic steatohepatitis (NASH); J10.1 Influenza due to other identified influenza virus with other respiratory manifestations; E55.9 Vitamin D deficiency, unspecified; I87.2 Venous insufficiency (chronic) (peripheral); Z87.891 Personal history of nicotine dependence
CPT/HCPCS: 1NP; 36415; 82436; 87040; 87070; 87804; 87804-59; 93005; 93010; 93306; 96374; J1650; J1940; J2930; J3490; J7512

== ENCOUNTER 2016-11-10 09:41 | Inpatient (IN) | payer OTHER ==
[~2016-11-10] VITALS: Ht 167.6 cm; Wt 125.2 kg
[~2016-11-10 09:41] MED LIST: FUROSEMIDE40 M1 PO; LOSARTAN POTAS100 M1 PO; PREDNISONE20 M1 PO; SYMBICORT 16010.2 GM; TAMIFLU30 M1 PO; TUDORZA PRESS400 MCG; VITAMIN D31000 UNI1 PO
--- NOTE | 2016-11-10 09:49 | ED DYSPNEA/ASTHMA COMPLAINT ---
See Addendum History of Present Illness General Chief Complaint: Dyspnea (COPD, CHF, Other) Stated Complaint: SOB Source: patient, family, old records Exam Limitations: no limitations Allergies Coded Allergies: meclizine (RASH 08/08/16) Reconcile Medications Aclidinium [place] (Tudorza Pressair) 400 MCG/ACTUATION AER.POW.BA 2 PUFF DAILY COPD (Reported) Budesonide/Formoterol Fumarate (Symbicort 160-4.5 Mcg Inhaler) 160 MCG-4.5 MCG/ ACTUATION HFA.AER.AD 2 PUFF BID COPD (Reported) Cholecalciferol (Vitamin D3) (Vitamin D3) 1,000 UNIT CAPSULE 2 CAP PO Q48 REPLACEMENT (Reported) Furosemide 40 MG TABLET 1 TAB PO PRN CHF (Reported) Losartan Potassium 100 MG TABLET 1 TAB PO DAILY HTN (Reported) Triage Note: 76 YO FEMALE TO TRIAGE C/O SHORTNESS OF BREATH AND PRODUCTIVE COUGH. STATES THE SPUTUM WAS CLEAR BUT NOT IS YELLOW TINGED AND THICK. HX OF COPD. TEMP 99.1. C/O BODY AHCES. TOOK TYLENOL 0200AM. Triage Nurses Notes Reviewed? yes Onset: Abrupt Duration: hour(s): (12), better, constant Timing: recent history Severity: mild, moderate Activities at Onset: activity Prior Episodes/Possible Cause: frequent episodes Associated Symptoms: cough, fever HPI: 76 year old female with significant past medical history of hypertension, COPD, cirrhosis of the liver, solitary pulmonary nodule, type 2 diabetes mellitus presents to ER for evaluation complaining of one-week history of nonproductive cough which she's been using [id number] cough medicines with improvement. She states however that last night around 2 AM she woke up feeling short of breath associated with subjective fever chills which he took Tylenol without improvement. She denies any associated chest pain or leg swelling. She is not on home O2 she's not for prednisone she is a former smoker. No abdominal pain urinary symptoms nausea vomiting diarrhea. No orthopnea symptoms are worse with exertion (GAYATRI GERBER,DOM) Vital Signs & Intake/Output Vital Signs & Intake/Output Vital Signs Date Time Temp Pulse Resp B/P B/P Pulse O2 O2 Flow FiO2 Mean Ox Delivery Rate 11/10 1327 90 140/70 11/10 1211 100.4 90 20 11/10 1210 Room Air Room Air 11/10 1029 94 Room Air Room Air 11/10 1026 100.9 11/10 1026 98.0 100 140/70 11/10 0944 99.1 96 18 154/69 94 Room Air Past History Travel History Traveled to [place] past 21 day No Medical History Any Pertinent Medical History? 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 No (DOM SCANLON) Review of Systems Review of Systems Constitutional: Reports: see HPI. All Other Systems: Reviewed and Negative Comments Review of systems: See HPI, All other systems negative. Constitutional, no chills no fever, no malaise HEENT: No visual changes no sore throat no congestion, Cardiovascular: No chest pain , no palpitation Skin: no rashes, no change in skin Respiratory:dyspnea cough no sputum no hemoptysis GI: No nausea no vomiting, no diarrhea, : No dysuria Muscle skeletal: No joint pain, no joint swelling, no back pain, no neck pain, Neurologic: no headache Psych: No stress Heme/endocrine: No bruising no bleeding Immunology: No lymphadenopathy (DOM SCANLON) Physical Exam Physical Exam General Appearance: well developed/nourished, alert, awake Respiratory: normal breath sounds, chest non-tender Comments: Well-developed well-nourished person in no acute distress HEENT: Normal EENT exam; PERRL, EOMI, HEAD is atraumatic. moist mucous membranes. Neck: Supple, normal range of motionss Back: Nontender, no CVA tenderness. Full range of motion Cardiovascular: Regular rate and rhythms no murmurs rubs Respiratory: Chest nontender.There were no bony deformities, no asymmetry. No respiratory distress. Patient speaking in full complete sentences. Breath sounds clear to auscultation bilaterally: NO W/R/R Abdomen: Soft, nontender nondistended, no appreciable organomegaly. Normal bowel sounds. No rebound/guarding, Extremity: No edema, full range of motion of extremitie Neuro: Alert oriented x3, motor sensory normal. There were no obvious focal neurologic abnormalities. Skin: No appreciable rash on exposed skin, skin is warm and dry. Psych: Mood and affect is normal, memory and judgment is normal. Core Measures ACS in differential dx? Yes Severe Sepsis Present: No Septic Shock Present: No (DOM SCANLON) Progress Differential Diagnosis: AMI, bronchitis, CHF, COPD, pericarditis, pulmonary embolism, pneumonia, pneumothorax, unstable angina Diagnostic Imaging: Viewed by Me: Radiology Read. Discussed w/RAD: Radiology Read. Radiology Impression: PATIENT: WANDA COWAN PRESENT AGE: 76 PATIENT ACCOUNT NO: [id number] : 40 LOCATION: [facility] ORDERING PHYSICIAN: DOM GERBER SERVICE DATE: 11/10/16 EXAM TYPE: RAD - XRY-CHEST XRAY, PA AND LATERAL EXAMINATION: XR CHEST CLINICAL INFORMATION: Dyspnea. Cough. COMPARISON: Previous chest x-rays, most recent August 2016 TECHNIQUE: 2 views of the chest were obtained. FINDINGS: The cardiac silhouette is enlarged and appears increased in size from previous exams. There is pulmonary venous redistribution. There is a small left pleural effusion. Findings are questionable for CHF. No evidence of a pneumonia is seen. There are degenerative changes of the spine. IMPRESSION: Enlarged cardiac silhouette, pulmonary venous redistribution and small left pleural effusion. Findings are suggestive of CHF. No evidence of pneumonia. DICTATED BY: KENDAL CARRILLO MD DATE/TIME DICTATED:11/10/161044 GRADES 7 8 TUTOR:JOSÉ MIGUEL DATE/TIME TRANSCRIBED:11/10/161044 CONFIDENTIAL, DO NOT COPY WITHOUT APPROPRIATE AUTHORIZATION. <Electronically signed in Other Vendor System> SIGNED BY: KENDAL CARRILLO MD 11/10/16 1050 Initial ED EKG: normal intervals, normal p-waves, normal QRS complex, normal sinus rhythm (80), PVCS Prior EKG: unchanged (08/2016) Rhythm Strip: normal sinus rhythm (DOM SCANLON) Plan of Care: Orders Procedure Date/time Status CBC WITHOUT DIFFERENTIAL 11/11 0600 Active BASIC ELECTROLYTES PLUS BUN&CR 11/11 0600 Active Regular Diet 11/10 L Complete Heart Healthy Diet 11/10 D Active LACTIC ACID 11/10 1324 Active CULTURE,URINE 11/10 1258 Active STREP PNEUMO URINARY ANTIGEN 11/10 1258 Active LEGIONELLA URINARY ANTIGEN 11/10 1258 Active LOWER RESPIRATORY CULTURE 11/10 1258 Active Pathway - chart 11/10 1255 Active Pathway - chart 11/10 1254 Active House Staff 11/10 1254 Active Patient Data 11/10 1254 Active Code Status 11/10 1254 Active Misc Message 11/10 1217 Active ED Holding Orders 11/10 1217 Active Vital Signs 11/10 1217 Active Code Status 11/10 1217 Complete Admit to inpatient 11/10 1214 Active Patient Data 11/10 1145 Active Telemetry/Billing Adjudicator 11/10 1058 Active Intake & Output 11/10 1028 Active BLOOD CULTURE 11/10 1024 Active LACTIC ACID 11/10 1024 Active TROPONIN LEVEL 11/10 1003 Complete COMPREHENSIVE METABOLIC PANEL 11/10 1003 Complete CBC WITHOUT DIFFERENTIAL 11/10 1003 Complete B-TYPE NATRIURETIC PEP (BNP) 11/10 1003 Complete EKG 11/10 1003 Active TRC EVALUATION (GEN) 11/10 UNK Active House Staff 11/10 UNK Active VTE Mechanical Prophylaxis 11/10 UNK Active Vital Signs 11/10 UNK Active Telemetry/Billing Adjudicator 11/10 UNK Active Intake & Output 11/10 UNK Active Current Medications Sig/Estephania Start time Last Medication Dose Stop Time Status Admin Azithromycin 500 MG DAILY@1230 /10 1230 AC (Zithromax) Sodium Chloride 250 ML (Normal Saline 0.9%) Ceftriaxone Sodium 1,000 MG DAILY@1200 07 1200 AC (Rocephin) Acetaminophen 650 MG Q6P PRN 11/10 1300 AC (Tylenol) Ibuprofen 600 MG Q6P PRN 11/10 1300 AC (Motrin) Oxycodone/ 2 TAB Q6P PRN 11/10 1300 AC Acetaminophen (Percocet) Budesonide/ 2 PUF BID 11/10 1256 AC Formoterol Fumarate (Symbicort) Losartan Potassium 100 MG DAILY 11/10 1256 AC 11/10 (Cozaar) 1327 Enoxaparin Sodium 40 MG DAILY 11/10 1254 AC 11/10 (Lovenox) 1327 Laboratory Tests 11/10/16 1007: Anion Gap 8, Estimated GFR > 60, BUN/Creatinine Ratio 26.3 H, Glucose 120 H, Calcium 9.2, Total Bilirubin 2.2 H, AST 34, ALT 31, Alkaline Phosphatase 81, Troponin I 0.08, Rbe-D-Chswjmxmfad Pept 6060 H, Total Protein 6.0 L, Albumin 3.2 L, Globulin 2.8, Albumin/Globulin Ratio 1.1, CBC w Diff MAN DIFF ORDERED, RBC 4.22, MCV 97.0, MCH 32.7 H, RDW 13.9, MPV 9.8, Gran % 94.2 H, Lymphocytes % 2.4 L, Monocytes % 3.4, Eosinophils % 0, Basophils % 0 L, Absolute Granulocytes 19.6 H, Absolute Lymphocytes 0.5 L, Absolute Monocytes 0.7 H, Absolute Eosinophils 0, Absolute Basophils 0, Normocytic RBCs VERIFIED, Normochromic RBCs VERIFIED, PUBS MCHC 33.7 Microbiology 11/10 1258 URINE ROUT: Legionella Antigen - ORD 11/10 125 URINE ROUT: Streptococcus pneumoniae Antigen (M - ORD 11/10 1258 URINE ROUT: Urine Culture - ORD 11/10 1258 LOWER RESP: Respiratory Culture - ORD 11/10 1258 LOWER RESP: Gram Stain - ORD 11/10 1045 BLOOD: Blood Culture - RECD 11/10 1030 BLOOD: Blood Culture - RECD Labs ordered old records reviewed patient spiked a temperature 100.9 lactic acid blood cultures added on chest x-ray ordered case discussed with Dr. Copeland who evaluated patient agrees with plan Patient speaking full complete sentences appears in no apparent distress at this time discussed with patient and family at length all of her lab results chest x- ray findings to date given elevated white blood cell count chest x-ray and new symptoms of fever productive cough since this morning we'll treat for presumed developing pneumonia as well as CHF calls placed her primary care physician rocephin 1g azithro 500mg iv, lasix 20mg iv ordered case d/w dr navas covering for dr pearce will admit to tele (DOM SCANLON) Departure Departure Time of Disposition: 1133 Disposition: STILL A PATIENT Condition: Stable Clinical Impression Primary Impression: PNA (pneumonia) Secondary Impressions: CHF exacerbation Referrals: MOLLY GARCIA,RISHI Robles (PCP/Family) Departure Forms: Customer Survey General Discharge Information Admission Note Spoke With: JACKIE NAVAS MD Documentation of Exam: Documentation of any treatments & extenuating circumstances including Concerns Regarding Discharge (functional status, medication knowledge or non-compliance, living conditions, etc.) that warrant an admission rather than observation: Cardiology consult IV antibiotics IV diuresis telemetry monitoring premature discharge would BE medically harmful (DOM SCANLON) PA/PRESIDENT Co-Sign Statement Statement: ED Attending supervision documentation- [X] I saw and evaluated the patient. I have also reviewed all the pertinent lab results and diagnostic results. I agree with the findings and the plan of care as documented in the PA's/PRESIDENT's documentation. [] I have reviewed the ED Record and agree with the PA's/PRESIDENT's documentation. [] Additions or exceptions (if any) to the PAs/PRESIDENT's note and plan are summarized below: [] (SEAN GARCIA,RAZIA Parsons) Critical Care Note Critical Care Note Critical Care Time: non-applicable (DOM SCANLON)
[2016-11-10 10:39] LABS: ABSOLUTE BASOPHIL COUNT 0 /CUMM (0.0-0.2); ABSOLUTE EOSINOPHIL COUNT 0 /CUMM (0.0-0.7); ABSOLUTE GRANULOCYTE CT 19.6 /CUMM (1.4-6.5); ABSOLUTE LYMPH COUNT 0.5 /CUMM (1.2-3.4); ABSOLUTE MONOCYTE COUNT 0.7 /CUMM (0.10-0.60); BASOPHIL % 0 % (0.0-2.0); EOSINOPHIL % 0 % (0-5); GRANULOCYTE % 94.2 % (42.2-75.2); HEMATOCRIT 40.9 % (37-47); MEAN CORPUSCULAR HGB 32.7 PG (27.0-31.0); MEAN CORPUSCULAR HGB CONC 33.7 G/DL (33.0-37.0); MEAN PLATELET VOLUME 9.8 FL (7.4-10.4); PLATELET COUNT 118 /CUMM (130-400); RBC DISTRIBUTION WIDTH 13.9 % (11.5-14.5); RED BLOOD CELL CT 4.22 /CUMM (4.20-5.40); WHITE BLOOD CELL COUNT 20.8 /CUMM (4.8-10.8)
--- NOTE | 2016-11-10 10:50 | RADIOLOGY REPORT ---
EXAMINATION: XR CHEST CLINICAL INFORMATION: Dyspnea. Cough. COMPARISON: Previous chest x-rays, most recent August 2016 TECHNIQUE: 2 views of the chest were obtained. FINDINGS: The cardiac silhouette is enlarged and appears increased in size from previous exams. There is pulmonary venous redistribution. There is a small left pleural effusion. Findings are questionable for CHF. No evidence of a pneumonia is seen. There are degenerative changes of the spine. IMPRESSION: Enlarged cardiac silhouette, pulmonary venous redistribution and small left pleural effusion. Findings are suggestive of CHF. No evidence of pneumonia.
--- NOTE | 2016-11-10 14:32 | History & Physical ---
General Information and HPI MD Statement: I have seen and personally examined WANDA COWAN and documented this H&P. The patient is a 76 year old F who presented with a patient stated chief complaint of Fever and shortness of breath Source of Information: patient, family Exam Limitations: no limitations History of Present Illness: 76-year-old female with past medical history significant for COPD not on home oxygen, stage I diastolic congestive heart failure on Lasix as needed, bilateral leg swelling, hypertension, history of cirrhosis, bilateral knee replacements, heparin-induced thrombocytopenia, solitary lung nodule, history of smoking presented to emergency department with chief complaint of fever, productive cough and shortness of breath at rest. According to the patient, she reports ongoing cold and cough for 1 week. She has exposure to sick contacts before this episode. However for past 1 day her cough has been increasing associated with yellow colour sputum production. Also she spiked fever twice yesterday. Patient also reports shortness of breath at rest. Minimal relief with inhalers. Denies any orthopnea and paroxysmal nocturnal dyspnea. No chest pain. Of note patient has history of COPD. She smoked 1 pack per day for 40 years. She quit smoking 10 years ago. She uses aclidinium and Symbicort inhalers at home. She has Numerous bilateral pulmonary nodules measuring up to 6 mm, unchanged since 2011, from last CAT scan December 2015. No new or enlarging nodules are identified. Denies any travel history. Reports bilateral leg swelling. She was diagnosed with diastolic heart failure and she was placed on Lasix 40 mg as needed for leg swelling. She usually takes Lasix once in 3 days. Echocardiogram in August 2016 showed ejection fraction 55% in stage I diastolic heart failure. She follows Dr. Padilla primary care doctor. She has not been following any hr director for 3 months. Patient denies any headache, weakness, sensory changes, tingling or numbness, nausea, vomiting, abdominal pain, change in bladder or bowel habits. Denies any current smoking Denies any alcohol intake Denies illicit drug abuse Allergies/Medications Allergies: Coded Allergies: meclizine (RASH 08/08/16) Home Med list Aclidinium [place] (Tudorza Pressair) 400 MCG/ACTUATION AER.POW.BA 2 PUFF DAILY COPD (Reported) Budesonide/Formoterol Fumarate (Symbicort 160-4.5 Mcg Inhaler) 160 MCG-4.5 MCG/ ACTUATION HFA.AER.AD 2 PUFF BID COPD (Reported) Cholecalciferol (Vitamin D3) (Vitamin D3) 1,000 UNIT CAPSULE 2 CAP PO Q48 REPLACEMENT (Reported) Furosemide 40 MG TABLET 1 TAB PO PRN CHF (Reported) Losartan Potassium 100 MG TABLET 1 TAB PO DAILY HTN (Reported) Compliance With Home Meds: GOOD Past History Travel History Traveled to [place] past 21 day No Medical History Neurological: NONE EENT: NONE Cardiovascular: CHF, hypertension Respiratory: COPD Gastrointestinal: NONE Hepatic: cirrhosis Renal: NONE Musculoskeletal: TWO KNEE REPLACEMENTS Psychiatric: NONE Endocrine: DIABETIC Blood Disorders: hep ind thrombocytopenia, "SENSITIVE TO BRUISING" 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 EENTM: Denies: blurred vision, double vision. Cardiovascular: Reports: peripheral edema. Denies: chest pain, edema, orthopena, palpitations, syncope. Respiratory: Reports: cough, short of breath, sputum production. Denies: hemoptysis, orthopnea, stridor, wheezing. GI: Denies: abdominal pain, bloating, constipation, diarrhea, distention, bloody stool, changes in stool. Genitourinary: Denies: discharge, dysuria, frequency, hematuria. Musculoskeletal: Denies: back pain, gout, joint pain. Skin: Reports: see HPI. Neurological/Psychological: Denies: anxiety, ataxia, depressed, dementia, headache, numbness, tingling, tremors. Exam & Diagnostic Data Last 24 Hrs of Vital Signs/I&O Vital Signs Date Time Temp Pulse Resp B/P B/P Pulse O2 O2 Flow FiO2 Mean Ox Delivery Rate 11/10 1327 90 140/70 11/10 1211 100.4 90 20 11/10 1210 Room Air Room Air 11/10 1029 94 Room Air Room Air 11/10 1026 100.9 11/10 1026 98.0 100 140/70 11/10 0944 99.1 96 18 154/69 94 Room Air Intake & Output 11/10 1600 11/10 0800 11/10 0000 Intake Total 100 Output Total 175 Balance -75 Intake, Oral 100 Output, Urine 175 Patient 79.832 kg Weight Weight Reported by Patient Measurement Method Physical Exam General Appearance Alert, Oriented X3, Cooperative, No Acute Distress Skin No Rashes, No Breakdown, No Significant Lesion HEENT Atraumatic, PERRLA, EOMI, Mucous Membr. moist/pink Neck Supple, No JVD, No thryomegaly Lymphatic Cervical nl Cardiovascular Normal S1, Normal S2 Lungs Normal Air Movement Abdomen Normal Bowel Sounds, Soft, No Tenderness Neurological Normal Speech, Strength at 5/5 X4 Ext, Normal Tone, Sensation Intact, Cranial Nerves 3-12 NL Extremities No Clubbing, No Cyanosis, No Edema Vascular Pulses Symmetrical Last 24 Hrs of Labs/Mina: Laboratory Tests 11/10/16 1007: Anion Gap 8, Estimated GFR > 60, BUN/Creatinine Ratio 26.3 H, Glucose 120 H, Calcium 9.2, Total Bilirubin 2.2 H, AST 34, ALT 31, Alkaline Phosphatase 81, Troponin I 0.08, Jyh-Z-Lzmprhpbiyp Pept 6060 H, Total Protein 6.0 L, Albumin 3.2 L, Globulin 2.8, Albumin/Globulin Ratio 1.1, CBC w Diff MAN DIFF ORDERED, RBC 4.22, MCV 97.0, MCH 32.7 H, RDW 13.9, MPV 9.8, Gran % 94.2 H, Lymphocytes % 2.4 L, Monocytes % 3.4, Eosinophils % 0, Basophils % 0 L, Absolute Granulocytes 19.6 H, Absolute Lymphocytes 0.5 L, Absolute Monocytes 0.7 H, Absolute Eosinophils 0, Absolute Basophils 0, Normocytic RBCs VERIFIED, Normochromic RBCs VERIFIED, PUBS MCHC 33.7 Microbiology 11/10 125 URINE ROUT: Legionella Antigen - ORD 11/10 125 URINE ROUT: Streptococcus pneumoniae Antigen (M - ORD 11/10 125 URINE ROUT: Urine Culture - ORD 11/10 1258 LOWER RESP: Respiratory Culture - ORD 11/10 125 LOWER RESP: Gram Stain - ORD 11/10 1045 BLOOD: Blood Culture - RECD 11/10 1030 BLOOD: Blood Culture - RECD Diagnostic Data EKG Results Sinus rhythm, heart rate 78, QTC 502, no acute ST-T wave changes CXR Results Cardiomegaly No pneumonia Assessment/Plan Assessment: 76-year-old female with past medical history significant for COPD not on home oxygen, stage I diastolic congestive heart failure on Lasix as needed, bilateral leg swelling, hypertension, history of cirrhosis, bilateral knee replacements, heparin-induced thrombocytopenia, solitary lung nodule, history of smoking presented to emergency department with chief complaint of fever, productive cough and shortness of breath at rest. Vitals on admission-MAXIMUM TEMPERATURE 100.9, heart rate 100, respiratory rate 18, blood pressure 140/70, saturating at 94 on room air Pertinent labs on admission Leukocytosis 21,000, H&H normal, low platelets 118. BEP normal Liver function tests normal Lactic acid pending cxr Enlarged cardiac silhouette, pulmonary venous redistribution and small left pleural effusion. Findings are suggestive of CHF. No evidence of pneumonia. EKG-sinus rhythm, heart rate 78, normal axis, QTC 502, no acute ST-T wave changes. Problem list 1. Acute on chronic CHF 2. Pneumonia 3. Possible COPD exacerbation 4. Hypertension pneumonia/COPD exacerbation Patient presented to emergency department with ongoing cough associated with sputum production, shortness of breath, fever. Her WBC count elevated 21,000 with a temperature max 100.9 on admission. Fulfilled SIRS criteria on admission. Possible differentials pneumonia/CHF exacerbation/COPD exacerbation. * She was admitted to telemetry floor for further management of pneumonia * Monitor vitals closely every shift * Maintain oxygen saturations greater than 90% * Provide supplemental oxygen if necessary * Pancultures * Urine Legionella and strep antigens * Will start her on ceftriaxone and azithromycin for possible community-acquired pneumonia * Follow blood cultures and sputum cultures * Closely monitor for fever and leukocytosis * Repeat CBCs in the morning to look for WBC count Possible COPD exacerbation Patient presented with ongoing cough, sputum production, shortness of breath. Of note patient has history of COPD. She smoked 1 pack per day for 40 years. She quit smoking 10 years ago. She uses aclidinium and Symbicort inhalers at home. * Total respiratory care * duonebs * No need for steroids, lungs were clear * Follow-up sputum cultures * Continue antibiotics History of bilateral pulmonary nodules She has Numerous bilateral pulmonary nodules measuring up to 6 mm, unchanged since 2011, from last CAT scan December 2015. No new or enlarging nodules are identified. Acute on chronic CHF Patient presented with worsening shortness of breath. Also reported fever, productive cough. ProBNP elevated on admission 6060. Chest x-ray findings suggestive of cardiomegaly. * Last echo 08/09/2016 showed stage I diastolic heart failure * She was on Lasix 40 mg at home as needed for leg swelling * Usually takes Lasix once in 3 days * Received IV Lasix 20 mg in the emergency room * Cardiology was consulted * Will follow cardiology recommendations hypertension Continue home medication losartan Full code DVT prophylaxis-subcutaneous Lovenox Pain pathway Regular diet As Ranked By This Provider Problem List: 1. CHF (congestive heart failure) 2. PNA (pneumonia) 3. CHF exacerbation Core Measures/Miscellaneous Acute Coronary Syndrome ACS Diagnosis: No Cerebrovascular Accident CVA/TIA Diagnosis: No Congestive Heart Failure CHF Diagnosis: Yes Date of most recent Echo: 08/09/16 Last Known EF %: 55 WON/ARB for EF <40%: Yes No WON/ARB d/t: Medical Contraindication VTE (View Protocol) VTE Risk Factors: Age > 40 [facility] d/t: No contraindications No VTE Pharm Prophylaxis d/t: No contraindications VTE Diagnosis: No VTE Type: NONE VTE Confirmed by (Test): NONE Sepsis (View Protocol) Severe Sepsis Present: No Septic Shock Septic Shock Present: No Miscellaneous Documentation Attending Case Discussed With: JACKIE STUART MD Primary Care Physician: RISHI PADILLA MD Patient sees these Specialists none Level of Patient Care: Telemetry
--- NOTE | 2016-11-10 14:48 | Admission Certification ---
Admission Certification Certification Statement - As attending physician, I certify that at the time of - admission, based on clinical presentation, severity of - symptoms, need for further diagnostic testing and - therapeutic interventions, and risk of adverse outcomes - without in-hospital treatment, in my clinical assessment, - this patient requires an acute hospital stay for a minimum - of two nights or longer. I have also considered psychsocial - factors such as support system, advanced age, financial - issues, cognitive issues, and failed out-patient treatments, - past re-admission history, safety of patient, and lack of - compliance as applicable. Specific rationale supporting this admission is: Fever cough increased shortness of breath increase edema, congestive heart failure
--- NOTE | 2016-11-10 14:52 | PN- Att Addend ---
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 One week not feeling well having cold symptoms. And cough and yellow sputum and intermittent fever. Symptoms really became worse the last 24 hours. Shortness of breath is worse, her edema is worse still having spikes of temperature, comes into the ER in mild respiratory distress low-grade fever congestive heart failure on chest x-ray very patient got diuretics in the ER some improvement of the symptoms. Patient will be admitted treated with IV antibiotics after all the cultures were obtained total respiratory care gentle diuresis. Also have Dr. Padilla follow her in the morning and have cardiology see the patient Her white count is elevated. Laboratory Tests 11/10 11/10 1431 1007 Chemistry Sodium (137 - 145 mmol/L) 143 Potassium (3.5 - 5.1 mmol/L) 3.7 Chloride (98 - 107 mmol/L) 109 H Carbon Dioxide (22 - 30 mmol/L) 26 Anion Gap (5 - 16) 8 BUN (7 - 17 mg/dL) 21 H Creatinine (0.5 - 1.0 mg/dL) 0.8 Estimated GFR (>60 ml/min) > 60 BUN/Creatinine Ratio (7 - 25 %) 26.3 H Glucose (65 - 99 mg/dL) 120 H Lactic Acid (0.7 - 2.1 mmol/L) Pending 2.4 H Calcium (8.4 - 10.2 mg/dL) 9.2 Total Bilirubin (0.2 - 1.3 mg/dL) 2.2 H AST (14 - 36 U/L) 34 ALT (9 - 52 U/L) 31 Alkaline Phosphatase (<127 U/L) 81 Troponin I (< 0.11 ng/ml) 0.08 [id number]-[id number] Pept (<125 pg/mL) 6060 H Total Protein (6.3 - 8.2 g/dL) 6.0 L Albumin (3.5 - 5.0 g/dL) 3.2 L Globulin (1.9 - 4.2 gm/dL) 2.8 Albumin/Globulin Ratio (1.1 - 2.2 %) 1.1 Hematology CBC w Diff MAN DIFF ORDERED WBC (4.8 - 10.8 /CUMM) 20.8 H RBC (4.20 - 5.40 /CUMM) 4.22 Hgb (12.0 - 16.0 G/DL) 13.8 Hct (37 - 47 %) 40.9 MCV (81.0 - 99.0 FL) 97.0 MCH (27.0 - 31.0 PG) 32.7 H RDW (11.5 - 14.5 %) 13.9 Plt Count (130 - 400 /CUMM) 118 L MPV (7.4 - 10.4 FL) 9.8 Gran % (42.2 - 75.2 %) 94.2 H Lymphocytes % (20.5 - 51.1 %) 2.4 L Monocytes % (1.7 - 9.3 %) 3.4 Eosinophils % (0 - 5 %) 0 Basophils % (0.0 - 2.0 %) 0 L Absolute Granulocytes (1.4 - 6.5 /CUMM) 19.6 H Absolute Lymphocytes (1.2 - 3.4 /CUMM) 0.5 L Absolute Monocytes (0.10 - 0.60 /CUMM) 0.7 H Absolute Eosinophils (0.0 - 0.7 /CUMM) 0 Absolute Basophils (0.0 - 0.2 /CUMM) 0 Normocytic RBCs VERIFIED Normochromic RBCs VERIFIED PUBS MCHC (33.0 - 37.0 G/DL) 33.7
[2016-11-10 17:46] VITALS: BP 118/60
--- NOTE | 2016-11-10 18:33 | Cons- Cardiology ---
General Information and HPI Consulting Request Date of Consult: 11/10/16 Requested By: JACKIE DUQUE MD Reason for Consult: Dyspnea with CHF Source of Information: patient, old records Exam Limitations: no limitations History of Present Illness: 76-year-old female with past medical history significant for COPD not on home oxygen, stage I diastolic congestive heart failure on Lasix as needed, bilateral leg swelling, hypertension, history of cirrhosis, bilateral knee replacements, heparin-induced thrombocytopenia, solitary lung nodule, history of smoking presented to emergency department with chief complaint of fever, productive cough and shortness of breath at rest. According to the patient, she reports ongoing cold and cough for 1 week. She has exposure to sick contacts before this episode. However for past 1 day her cough has been increasing associated with yellow colour sputum production. Also she spiked fever twice yesterday. Patient also reports shortness of breath at rest. Minimal relief with inhalers. Denies any orthopnea and paroxysmal nocturnal dyspnea. No chest pain. In the ER the patients CXR was noted to be consistent with mild CHF. THe patient is admitted for further treatment of her pulmonary and cardiac issues. Of note, the patient, per DR. Duque, has requested Dr. Krause as her primary cloth dyer. Allergies/Medications Allergies: Coded Allergies: meclizine (RASH 08/08/16) Home Med List: Aclidinium [place] (Tudorza Pressair) 400 MCG/ACTUATION AER.POW.BA 2 PUFF DAILY COPD (Reported) Budesonide/Formoterol Fumarate (Symbicort 160-4.5 Mcg Inhaler) 160 MCG-4.5 MCG/ ACTUATION HFA.AER.AD 2 PUFF BID COPD (Reported) Cholecalciferol (Vitamin D3) (Vitamin D3) 1,000 UNIT CAPSULE 2 CAP PO Q48 REPLACEMENT (Reported) Furosemide 40 MG TABLET 1 TAB PO PRN CHF (Reported) Losartan Potassium 100 MG TABLET 1 TAB PO DAILY HTN (Reported) Current Medications: Current Medications Sig/Estephania Start time Last Medication Dose Route Stop Time Status Admin Acetaminophen 650 MG Q6P PRN 11/10 1300 AC PO Acetaminophen 0 .STK-MED ONE 11/10 1031 DC PO Acetaminophen 975 MG ONCE ONE 11/10 1015 DC 11/10 PO 11/10 1016 1026 Azithromycin 500 MG DAILY@1230 11/11 1230 AC Sodium Chloride 250 ML IV Azithromycin 500 MG ONCE ONE 11/10 1100 DC 11/10 Sodium Chloride 250 ML IV 11/10 1159 1232 Budesonide/ 2 PUF BID 11/10 1256 AC 11/10 Formoterol Fumarate INH 1448 Ceftriaxone Sodium 1,000 MG DAILY@1200 11/11 1200 AC IV Ceftriaxone Sodium 0 .STK-MED ONE 11/10 1153 DC .ROUTE Ceftriaxone Sodium 1,000 MG ONCE ONE 11/10 1100 DC 11/10 IV 11/10 1101 1201 Enoxaparin Sodium 0 .STK-MED ONE 11/10 1330 DC SC Enoxaparin Sodium 40 MG DAILY 11/10 1254 AC 11/10 SC 1327 Furosemide 0 .STK-MED ONE 11/10 1153 DC IV Furosemide 20 MG ONCE ONE 11/10 1100 DC 11/10 IV 11/10 1101 1201 Ibuprofen 600 MG Q6P PRN 11/10 1300 AC PO Losartan Potassium 0 .STK-MED ONE 11/10 1330 DC PO Losartan Potassium 100 MG DAILY 11/10 1256 AC 11/10 PO 1327 Oxycodone/ 2 TAB Q6P PRN 11/10 1300 AC Acetaminophen PO Past History Travel History Traveled to [place] past 21 day No Medical History Blood Transfusion Hx: No Neurological: NONE EENT: NONE Cardiovascular: CHF, hypertension Respiratory: COPD Gastrointestinal: NONE Hepatic: cirrhosis Renal: NONE Musculoskeletal: TWO KNEE REPLACEMENTS Psychiatric: NONE Endocrine: DIABETIC Blood Disorders: hep ind thrombocytopenia, "SENSITIVE TO BRUISING" Cancer(s): NONE 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 Home Services at Home: None Smoking Status: Former Smoker ETOH Use: occasional use Illicit Drug Use: denies illicit drug use Exam & Diagnostic Data Vital Signs and I&O Vital Signs Date Time Temp Pulse Resp B/P B/P Pulse O2 O2 Flow FiO2 Mean Ox Delivery Rate 11/10 1746 98.8 73 18 118/60 95 11/10 1550 99.1 71 18 124/58 96 Room Air 11/10 1445 99.2 94 20 11/10 1327 90 140/70 11/10 1211 100.4 90 20 11/10 1210 Room Air Room Air 11/10 1029 94 Room Air Room Air 11/10 1026 100.9 11/10 1026 98.0 100 140/70 11/10 0944 99.1 96 18 154/69 94 Room Air Intake & Output 11/10 1600 11/10 0811/10 0000 11/09 1600 11/09 0800 11/09 0000 Intake Total 100 Output Total 175 Balance -75 Intake, Oral 100 Output, Urine 175 Patient 176 lb Weight Weight Reported by Patient Measurement Method Physical Exam: General Appearance Alert, Oriented X3, Cooperative, No Acute Distress, overweight Skin No Rashes, No Breakdown, No Significant Lesion HEENT Atraumatic, PERRLA, EOMI, Mucous Membr. moist/pink Neck Supple, No JVD, No thryomegaly, carotids normal bilaterally Lymphatic Cervical nl Cardiovascular Normal S1, Normal S2 Lungs Bilateral rhonchi Abdomen Normal Bowel Sounds, Soft, No Tenderness Neurological Nonfocal Extremities No Clubbing, No Cyanosis, No Edema Vascular Pulses Symmetrical Labs/Mina Results: Laboratory Tests 11/10 11/10 11/10 1431 1024 1007 Chemistry Sodium (137 - 145 mmol/L) 143 Potassium (3.5 - 5.1 mmol/L) 3.7 Chloride (98 - 107 mmol/L) 109 H Carbon Dioxide (22 - 30 mmol/L) 26 Anion Gap (5 - 16) 8 BUN (7 - 17 mg/dL) 21 H Creatinine (0.5 - 1.0 mg/dL) 0.8 Estimated GFR (>60 ml/min) > 60 BUN/Creatinine Ratio (7 - 25 %) 26.3 H Glucose (65 - 99 mg/dL) 120 H Lactic Acid (0.7 - 2.1 mmol/L) 2.0 Cancelled 2.4 H Calcium (8.4 - 10.2 mg/dL) 9.2 Total Bilirubin (0.2 - 1.3 mg/dL) 2.2 H AST (14 - 36 U/L) 34 ALT (9 - 52 U/L) 31 Alkaline Phosphatase (<127 U/L) 81 Troponin I (< 0.11 ng/ml) 0.08 Urr-S-Mnhxcmcpavo Pept (<125 pg/mL) 6060 H Total Protein (6.3 - 8.2 g/dL) 6.0 L Albumin (3.5 - 5.0 g/dL) 3.2 L Globulin (1.9 - 4.2 gm/dL) 2.8 Albumin/Globulin Ratio (1.1 - 2.2 %) 1.1 Hematology CBC w Diff MAN DIFF ORDERED WBC (4.8 - 10.8 /CUMM) 20.8 H RBC (4.20 - 5.40 /CUMM) 4.22 Hgb (12.0 - 16.0 G/DL) 13.8 Hct (37 - 47 %) 40.9 MCV (81.0 - 99.0 FL) 97.0 MCH (27.0 - 31.0 PG) 32.7 H RDW (11.5 - 14.5 %) 13.9 Plt Count (130 - 400 /CUMM) 118 L MPV (7.4 - 10.4 FL) 9.8 Gran % (42.2 - 75.2 %) 94.2 H Lymphocytes % (20.5 - 51.1 %) 2.4 L Monocytes % (1.7 - 9.3 %) 3.4 Eosinophils % (0 - 5 %) 0 Basophils % (0.0 - 2.0 %) 0 L Absolute Granulocytes (1.4 - 6.5 /CUMM) 19.6 H Absolute Lymphocytes (1.2 - 3.4 /CUMM) 0.5 L Absolute Monocytes (0.10 - 0.60 /CUMM) 0.7 H Absolute Eosinophils (0.0 - 0.7 /CUMM) 0 Absolute Basophils (0.0 - 0.2 /CUMM) 0 Normocytic RBCs VERIFIED Normochromic RBCs VERIFIED PUBS MCHC (33.0 - 37.0 G/DL) 33.7 Diagnostic Data EKG Results Pending CXR Results FINDINGS: The cardiac silhouette is enlarged and appears increased in size from previous exams. There is pulmonary venous redistribution. There is a small left pleural effusion. Findings are questionable for CHF. No evidence of a pneumonia is seen. There are degenerative changes of the spine. IMPRESSION: Enlarged cardiac silhouette, pulmonary venous redistribution and small left pleural effusion. Findings are suggestive of CHF. No evidence of pneumonia. Assessment/Plan Assessment/Plan Assessment: 1. Worsening dyspnea; likley multifactorial with URI and superimposed HFpEF; rule out pneumonia 2. COPD 3. History of HFpEF 4. HTN 5. Obesity 6. LE edema 7. Leukocytosis 8. Elevated ProBNP Recommendations: - Admit to telemetry - Serial troponins - Followup ECG in AM - Echocardiogram - Cultures and antibiotics as ordered. - Aggressive pulmonary treatment - Gentle diuresis with IV lasix and close monitoring of I/Os and weights. - FOllowup labs in AM Consult Acknowledgment - Thank you for your consult request.
[2016-11-11 00:23] VITALS: BP 120/90
[2016-11-11 07:27] VITALS: BP 112/66
--- NOTE | 2016-11-11 08:47 | PN- Housestaff ---
Subjective Follow-up For: 1. Acute on chronic CHF 2. Pneumonia 3. Possible COPD exacerbation 4. Hypertension Complaints: pain scale (0-10) Tele-Events Since Last Visit: Normal sinus rhythm and bundle branch block 71-84 with PVCs no events Subjective: Patient was examined bedside. She states that she is doing okay and has improved. She states that she still has a productive cough but less shortness of breath but states that she still needs to sleep with several pillows. She denies dizziness headache change of vision chest pain abdominal pain diarrhea constipation and urinary problems she mentions a insect bite on the dorsal aspect of her right hand that occurred a week ago. She noted swelling and states that now the swelling is down but complains that her right arm is sore up to the bicep and is red. Review of Systems Constitutional: Reports: no symptoms. EENTM: Reports: no symptoms. Cardiovascular: Reports: orthopena. Respiratory: Reports: orthopnea, short of breath. Gastrointestinal: Reports: no symptoms. Genitourinary: Reports: no symptoms. Skin: Reports: erythema. Neurological/Psychological: Reports: no symptoms. Hematologic/Endocrine: Reports: bruising. Immunologic/Allergic: Reports: no symptoms. Objective Last 24 Hrs of Vital Signs/I&O Vital Signs Date Time Temp Pulse Resp B/P B/P Pulse O2 O2 Flow FiO2 Mean Ox Delivery Rate 11/11 1110 97 Room Air Room Air 11/11 1010 70 112/66 11/11 0800 95 Room Air 11/11 0727 98.1 70 18 112/66 95 Room Air 11/11 0023 99.4 80 18 120/90 94 Room Air 11/11 0000 95 Room Air 11/10 2155 Room Air Room Air 11/10 1746 98.8 73 18 118/60 95 11/10 1550 99.1 71 18 124/58 96 Room Air Intake & Output 11/11 1600 10 0800 11/11 0000 Intake Total 762 200 960 Output Total 1000 500 Balance -238 -300 960 Intake, IV 282 Intake, Oral 480 200 960 Output, Urine 1000 500 Patient 271 lb 270 lb Weight Physical Exam General Appearance: Alert, Oriented X3, Cooperative, No Acute Distress Skin: PATIENT HAS A RIGHT ARM ERYTHEMA TO THE BICEP, WARM TO THE TOUCH. A SMALL INSECT BITE ON THE DORSAL ASPECT OF THE RIGHT HAND. THERE IS A CLEAR DELINEATION BETWEEN THE RED AREA AND NORMAL NON-ERYTHEMATOUS SKIN. SEVERAL ECCHYMOSES ON BOTH ARMS. Skin Temp/Moisture Exam: Warm/Dry Sepsis Skin Exam (color): Normal for Ethnicity HEENT: Atraumatic, PERRLA, EOMI, Mucous Membr. moist/pink Neck: Supple Cardiovascular: Regular Rate, Normal S1, Normal S2, No Murmurs, Gallops, Rubs Lungs: Clear to Auscultation, Normal Air Movement Abdomen: Normal Bowel Sounds, Soft, No Tenderness, No Hepatospenomegaly, No Masses Neurological: Normal Speech Extremities: No Clubbing, No Cyanosis, No Edema, ERYTHEMA OF THE RIGHT ARM Vascular: Normal Pulses Sepsis Peripheral Pulse Location: Radial Sepsis Peripheral Pulse Exam: Normal Current Medications: Current Medications Sig/Estephania Start time Last Medication Dose Route Stop Time Status Admin Acetaminophen 650 MG Q6P PRN 11/10 1300 AC 11/10 PO 2120 Albuterol Sulfate 3 ML Q4P PRN 11/10 2230 AC INH Azithromycin 500 MG DAILY@1230 11/11 1230 DC 11/11 Sodium Chloride 250 ML IV 1146 Budesonide/ 2 PUF BID 11/10 1256 AC 11/11 Formoterol Fumarate INH 1011 Ceftazidime 1,000 MG IQ8 11/11 1600 UNVr IV Ceftriaxone Sodium 1,000 MG DAILY@1200 11/11 1200 DC 11/11 IV 1146 Enoxaparin Sodium 40 MG DAILY 11/10 1254 AC 11/11 SC 1011 Furosemide 20 MG DAILY 11/11 1000 DC IV Furosemide 40 MG DAILY 11/11 1000 DC 11/11 IV 1011 Ibuprofen 600 MG Q6P PRN 11/10 1300 AC PO Losartan Potassium 100 MG DAILY 11/10 1256 AC 11/11 PO 1010 Methylprednisolone 40 MG BID 11/11 1000 r 11/11 IV 11/11 2300 1011 Oxycodone/ 2 TAB Q6P PRN 11/10 1300 AC Acetaminophen PO Potassium Chloride 40 MEQ ONCE ONE 11/11 1500 UNVr PO 11/11 1501 Prednisone 30 MG DAILY 11/13 1000 UNVr PO Sodium Chloride 1,000 ML Q13H 11/11 1500 UNVr IV Last 24 Hrs of Lab/Mina Results Last 24 Hrs of Labs/Mics: Laboratory Tests 11/11/16 0700: Anion Gap 7, Estimated GFR > 60, BUN/Creatinine Ratio 26.7 H, CBC w Diff NO MAN DIFF REQ, RBC 3.66 L, MCV 98.5, MCH 32.6 H, RDW 14.5, MPV 10.3, Gran % 78.5 H , Lymphocytes % 11.4 L, Monocytes % 8.6, Eosinophils % 0.9, Basophils % 0.6, Absolute Granulocytes 6.4, Absolute Lymphocytes 0.9 L, Absolute Monocytes 0.7 H, Absolute Eosinophils 0.1, Absolute Basophils 0.1, PUBS MCHC 33.1 11/11/16 0130: Troponin I 0.07 11/10/16 2020: Troponin I 0.07 Microbiology 11/10 152 URINE ROUT: Legionella Antigen - RES 11/10 152 URINE ROUT: Streptococcus pneumoniae Antigen (M - RES 11/10 152 URINE ROUT: Urine Culture - RES Orders EKG Findings: Sinus rhythm heart rate 78 QTC 502 ECHO Findings: Pending Radiology Findings: Chest x-ray IMPRESSION: Enlarged cardiac silhouette, pulmonary venous redistribution and small left pleural effusion. Findings are suggestive of CHF. No evidence of pneumonia. Lines/Diet/Fluids Fluids/Infusions: NORMAL SALINE Lines: peripheral lines Assessment/Plan Assessment: Assessment 76-year-old female with past medical history significant for COPD not on home oxygen, stage I diastolic congestive heart failure on Lasix as needed, bilateral leg swelling, hypertension, history of cirrhosis, bilateral knee replacements, heparin-induced thrombocytopenia, solitary lung nodule, history of smoking presented to emergency department with chief complaint of fever, productive cough and shortness of breath at rest. Temperature on admission was 100.9, all other vitals within normal limits. She was found to have leukocytosis to 21, 000. BEP and liver function test normal. Chest x-ray shows no evidence of pneumonia. Patient was found to have erythema of her right arm as well, concerning for cellulitis. Echocardiogram in August 2016 showed ejection fraction 55% in stage I diastolic heart failure. She follows Dr. Padilla primary care doctor. She has not been following any casino surveillance officer for 3 months. Gram-negative rods in the blood. Plan Pneumonia/COPD exacerbation Patient fulfilled SIRS criteria on admission. Possible differentials pneumonia/CHF exacerbation/COPD exacerbation. * She was admitted to telemetry floor for further management of pneumonia * Recent is on Ceftazidime for gram-negative bacteremia, azithromycin and ceftriaxone were stopped. * Overwhelming evidence suggests pneumonia but other intraabd process needs to be evaluated - send for CT abdomen and pelvis and chest with contrast * Monitor vitals closely every shift * Maintain oxygen saturations greater than 90% * Provide supplemental oxygen if necessary * Urine culture negative after 1 day * Urine Legionella and strep antigens negative * Follow blood cultures, sputum cultures were not able to be obtained, UA is pending * Closely monitor for fever and leukocytosis * Repeat CBCs in the morning to look for WBC count was 20.8 now is 8.2 Possible COPD exacerbation Patient presented with ongoing cough, sputum production, shortness of breath. Of note patient has history of COPD. She smoked 1 pack per day for 40 years. She quit smoking 10 years ago. She uses aclidinium and Symbicort inhalers at home. * Total respiratory care * duonebs * lungs were clear but patient is coughing, steroid by mouth 30mg, taper as per dr. padilla * Follow-up sputum cultures * Continue antibiotics History of bilateral pulmonary nodules She has Numerous bilateral pulmonary nodules measuring up to 6 mm, unchanged since 2011, from last CAT scan December 2015. No new or enlarging nodules are identified. Acute on chronic CHF Patient presented with worsening shortness of breath. Also reported fever, productive cough. ProBNP elevated on admission 6060. Chest x-ray findings suggestive of cardiomegaly. * Last echo 08/09/2016 showed stage I diastolic heart failure * She was on Lasix 40 mg at home as needed for leg swelling * Usually takes Lasix once in 3 days * Received IV Lasix 20 mg in the emergency room * Cardiology was consulted and suggested that we hold the Lasix * potassium 3.3, ONE UNIT GIVEN TODAY hypertension Continue home medication losartan Full code DVT prophylaxis-subcutaneous Lovenox Pain pathway Regular diet Problem List: 1. CHF exacerbation 2. PNA (pneumonia) 3. Hypertension Pain Ratin Pain Location: Right arm Pain Goal: Pain 4 or less Pain Plan: Is on Percocet Tomorrow's Labs & Rationales: CBC, BEP
[2016-11-11 09:36] LABS: ABSOLUTE EOSINOPHIL COUNT 0.1 /CUMM (0.0-0.7); ABSOLUTE LYMPH COUNT 0.9 /CUMM (1.2-3.4); ABSOLUTE MONOCYTE COUNT 0.7 /CUMM (0.10-0.60); EOSINOPHIL % 0.9 % (0-5)
[2016-11-11 09:54] LABS: ABSOLUTE BASOPHIL COUNT 0.1 /CUMM (0.0-0.2); ABSOLUTE GRANULOCYTE CT 6.4 /CUMM (1.4-6.5); BASOPHIL % 0.6 % (0.0-2.0); GRANULOCYTE % 78.5 % (42.2-75.2); MEAN CORPUSCULAR HGB 32.6 PG (27.0-31.0); MEAN CORPUSCULAR HGB CONC 33.1 G/DL (33.0-37.0); MEAN CORPUSCULAR VOLUME 98.5 FL (81.0-99.0); MEAN PLATELET VOLUME 10.3 FL (7.4-10.4); RBC DISTRIBUTION WIDTH 14.5 % (11.5-14.5); RED BLOOD CELL CT 3.66 /CUMM (4.20-5.40)
[2016-11-11 09:58] LABS: WHITE BLOOD CELL COUNT 8.2 /CUMM (4.8-10.8)
[2016-11-11 09:59] LABS: PLATELET COUNT 90 /CUMM (130-400)
--- NOTE | 2016-11-11 10:53 | PN- Pulmonary ---
Subjective HPI/Critical Care Issues: Improving Still has redness in the arm bilaterally Diuresis ongoing Afebrile cough ongoing nonproductive No abd pain ROS otherwise neg Laboratory Tests 11/11 11/11 11/10 11/10 07 0130 2019 1431 Chemistry Sodium (137 - 145 mmol/L) 141 Potassium (3.5 - 5.1 mmol/L) 3.3 L Chloride (98 - 107 mmol/L) 107 Carbon Dioxide (22 - 30 mmol/L) 27 Anion Gap (5 - 16) 7 BUN (7 - 17 mg/dL) 24 H Creatinine (0.5 - 1.0 mg/dL) 0.9 Estimated GFR (>60 ml/min) > 60 BUN/Creatinine Ratio (7 - 25 %) 26.7 H Lactic Acid (0.7 - 2.1 mmol/L) 2.0 Troponin I (< 0.11 ng/ml) 0.07 0.07 Hematology CBC w Diff NO MAN DIFF REQ WBC (4.8 - 10.8 /CUMM) 8.2 RBC (4.20 - 5.40 /CUMM) 3.66 L Hgb (12.0 - 16.0 G/DL) 11.9 L Hct (37 - 47 %) 36.0 L MCV (81.0 - 99.0 FL) 98.5 MCH (27.0 - 31.0 PG) 32.6 H RDW (11.5 - 14.5 %) 14.5 Plt Count (130 - 400 /CUMM) 90 L MPV (7.4 - 10.4 FL) 10.3 Gran % (42.2 - 75.2 %) 78.5 H Lymphocytes % (20.5 - 51.1 %) 11.4 L Monocytes % (1.7 - 9.3 %) 8.6 Eosinophils % (0 - 5 %) 0.9 Basophils % (0.0 - 2.0 %) 0.6 Absolute Granulocytes (1.4 - 6.5 /CUMM) 6.4 Absolute Lymphocytes (1.2 - 3.4 /CUMM) 0.9 L Absolute Monocytes (0.10 - 0.60 /CUMM) 0.7 H Absolute Eosinophils (0.0 - 0.7 /CUMM) 0.1 Absolute Basophils (0.0 - 0.2 /CUMM) 0.1 PUBS MCHC (33.0 - 37.0 G/DL) 33.1 11/10 11/10 1024 1007 Chemistry Sodium (137 - 145 mmol/L) 143 Potassium (3.5 - 5.1 mmol/L) 3.7 Chloride (98 - 107 mmol/L) 109 H Carbon Dioxide (22 - 30 mmol/L) 26 Anion Gap (5 - 16) 8 BUN (7 - 17 mg/dL) 21 H Creatinine (0.5 - 1.0 mg/dL) 0.8 Estimated GFR (>60 ml/min) > 60 BUN/Creatinine Ratio (7 - 25 %) 26.3 H Glucose (65 - 99 mg/dL) 120 H Lactic Acid (0.7 - 2.1 mmol/L) Cancelled 2.4 H Calcium (8.4 - 10.2 mg/dL) 9.2 Total Bilirubin (0.2 - 1.3 mg/dL) 2.2 H AST (14 - 36 U/L) 34 ALT (9 - 52 U/L) 31 Alkaline Phosphatase (<127 U/L) 81 Troponin I (< 0.11 ng/ml) 0.08 [id number]-[id number] Pept (<125 pg/mL) 6060 H Total Protein (6.3 - 8.2 g/dL) 6.0 L Albumin (3.5 - 5.0 g/dL) 3.2 L Globulin (1.9 - 4.2 gm/dL) 2.8 Albumin/Globulin Ratio (1.1 - 2.2 %) 1.1 Hematology CBC w Diff MAN DIFF ORDERED WBC (4.8 - 10.8 /CUMM) 20.8 H RBC (4.20 - 5.40 /CUMM) 4.22 Hgb (12.0 - 16.0 G/DL) 13.8 Hct (37 - 47 %) 40.9 MCV (81.0 - 99.0 FL) 97.0 MCH (27.0 - 31.0 PG) 32.7 H RDW (11.5 - 14.5 %) 13.9 Plt Count (130 - 400 /CUMM) 118 L MPV (7.4 - 10.4 FL) 9.8 Gran % (42.2 - 75.2 %) 94.2 H Lymphocytes % (20.5 - 51.1 %) 2.4 L Monocytes % (1.7 - 9.3 %) 3.4 Eosinophils % (0 - 5 %) 0 Basophils % (0.0 - 2.0 %) 0 L Absolute Granulocytes (1.4 - 6.5 /CUMM) 19.6 H Absolute Lymphocytes (1.2 - 3.4 /CUMM) 0.5 L Absolute Monocytes (0.10 - 0.60 /CUMM) 0.7 H Absolute Eosinophils (0.0 - 0.7 /CUMM) 0 Absolute Basophils (0.0 - 0.2 /CUMM) 0 Normocytic RBCs VERIFIED Normochromic RBCs VERIFIED PUBS MCHC (33.0 - 37.0 G/DL) 33.7 Microbiology Date/Time Procedure - Status Source Growth 11/10 1528 Legionella Antigen - RES URINE ROUT 11/10 1528 Streptococcus pneumoniae Antigen (M - RES URINE ROUT 11/10 1528 Urine Culture - RES URINE ROUT 11/10 1258 Respiratory Culture - COLB LOWER RESP 11/10 1258 Gram Stain - COLB LOWER RESP 11/10 1045 Blood Culture - RES BLOOD GRAM NEGATIVE RODS 11/10 1030 Blood Culture - RES BLOOD GRAM NEGATIVE RODS Objective Current Medications: Current Medications Sig/Estephania Start time Last Medication Dose Route Stop Time Status Admin Acetaminophen 650 MG Q6P PRN 11/10 1300 AC 11/10 PO 2120 Albuterol Sulfate 3 ML Q4P PRN 11/10 2230 AC INH Azithromycin 500 MG DAILY@1230 11/11 1230 AC Sodium Chloride 250 ML IV Azithromycin 500 MG ONCE ONE 11/10 1100 DC 11/10 Sodium Chloride 250 ML IV 11/10 1159 1232 Budesonide/ 2 PUF BID 11/10 1256 AC 11/11 Formoterol Fumarate INH 1011 Ceftriaxone Sodium 1,000 MG DAILY@1200 11/11 1200 AC IV Ceftriaxone Sodium 0 .STK-MED ONE 11/10 1153 DC .ROUTE Ceftriaxone Sodium 1,000 MG ONCE ONE 11/10 1100 DC 11/10 IV 11/10 1101 1201 Enoxaparin Sodium 0 .STK-MED ONE 11/10 1330 DC SC Enoxaparin Sodium 40 MG DAILY 11/10 1254 AC 11/11 SC 1011 Furosemide 20 MG DAILY 11/11 1000 DC IV Furosemide 40 MG DAILY 11/11 1000 AC 11/11 IV 1011 Furosemide 0 .STK-MED ONE 11/10 1153 DC IV Furosemide 20 MG ONCE ONE 11/10 1100 DC 11/10 IV 11/10 1101 1201 Ibuprofen 600 MG Q6P PRN 11/10 1300 AC PO Losartan Potassium 0 .STK-MED ONE 11/10 1330 DC PO Losartan Potassium 100 MG DAILY 11/10 1256 AC 11/11 PO 1010 Methylprednisolone 40 MG BID 11/11 1000 AC 11/11 IV 1011 Oxycodone/ 2 TAB Q6P PRN 11/10 1300 AC Acetaminophen PO Vital Signs & I&O Last 24 Hrs of Vitals and I&O: Vital Signs Date Time Temp Pulse Resp B/P B/P Pulse O2 O2 Flow FiO2 Mean Ox Delivery Rate 11/11 1010 70 112/66 11/11 0800 95 Room Air 11/11 0727 98.1 70 18 112/66 95 Room Air 11/11 0023 99.4 80 18 120/90 94 Room Air 11/11 0000 95 Room Air 11/10 2155 Room Air Room Air 11/10 1746 98.8 73 18 118/60 95 11/10 1550 99.1 71 18 124/58 96 Room Air 11/10 1445 99.2 94 20 11/10 1327 90 140/70 11/10 1211 100.4 90 20 11/10 1210 Room Air Room Air Intake & Output 11/11 1600 11/11 0800 11/11 0000 Intake Total 200 960 Output Total 500 Balance -300 960 Intake, Oral 200 960 Output, Urine 500 Patient 271 lb 270 lb Weight Laboratory Tests 11/11 11/11 11/10 11/10 0700 0130 2020 1431 Chemistry Sodium (137 - 145 mmol/L) 141 Potassium (3.5 - 5.1 mmol/L) 3.3 L Chloride (98 - 107 mmol/L) 107 Carbon Dioxide (22 - 30 mmol/L) 27 Anion Gap (5 - 16) 7 BUN (7 - 17 mg/dL) 24 H Creatinine (0.5 - 1.0 mg/dL) 0.9 Estimated GFR (>60 ml/min) > 60 BUN/Creatinine Ratio (7 - 25 %) 26.7 H Lactic Acid (0.7 - 2.1 mmol/L) 2.0 Troponin I (< 0.11 ng/ml) 0.07 0.07 Hematology CBC w Diff NO MAN DIFF REQ WBC (4.8 - 10.8 /CUMM) 8.2 RBC (4.20 - 5.40 /CUMM) 3.66 L Hgb (12.0 - 16.0 G/DL) 11.9 L Hct (37 - 47 %) 36.0 L MCV (81.0 - 99.0 FL) 98.5 MCH (27.0 - 31.0 PG) 32.6 H RDW (11.5 - 14.5 %) 14.5 Plt Count (130 - 400 /CUMM) 90 L MPV (7.4 - 10.4 FL) 10.3 Gran % (42.2 - 75.2 %) 78.5 H Lymphocytes % (20.5 - 51.1 %) 11.4 L Monocytes % (1.7 - 9.3 %) 8.6 Eosinophils % (0 - 5 %) 0.9 Basophils % (0.0 - 2.0 %) 0.6 Absolute Granulocytes (1.4 - 6.5 /CUMM) 6.4 Absolute Lymphocytes (1.2 - 3.4 /CUMM) 0.9 L Absolute Monocytes (0.10 - 0.60 /CUMM) 0.7 H Absolute Eosinophils (0.0 - 0.7 /CUMM) 0.1 Absolute Basophils (0.0 - 0.2 /CUMM) 0.1 PUBS MCHC (33.0 - 37.0 G/DL) 33.1 0711/10 1024 1007 Chemistry Sodium (137 - 145 mmol/L) 143 Potassium (3.5 - 5.1 mmol/L) 3.7 Chloride (98 - 107 mmol/L) 109 H Carbon Dioxide (22 - 30 mmol/L) 26 Anion Gap (5 - 16) 8 BUN (7 - 17 mg/dL) 21 H Creatinine (0.5 - 1.0 mg/dL) 0.8 Estimated GFR (>60 ml/min) > 60 BUN/Creatinine Ratio (7 - 25 %) 26.3 H Glucose (65 - 99 mg/dL) 120 H Lactic Acid (0.7 - 2.1 mmol/L) Cancelled 2.4 H Calcium (8.4 - 10.2 mg/dL) 9.2 Total Bilirubin (0.2 - 1.3 mg/dL) 2.2 H AST (14 - 36 U/L) 34 ALT (9 - 52 U/L) 31 Alkaline Phosphatase (<127 U/L) 81 Troponin I (< 0.11 ng/ml) 0.08 Iaw-E-Vjgbaqlwhnr Pept (<125 pg/mL) 6060 H Total Protein (6.3 - 8.2 g/dL) 6.0 L Albumin (3.5 - 5.0 g/dL) 3.2 L Globulin (1.9 - 4.2 gm/dL) 2.8 Albumin/Globulin Ratio (1.1 - 2.2 %) 1.1 Hematology CBC w Diff MAN DIFF ORDERED WBC (4.8 - 10.8 /CUMM) 20.8 H RBC (4.20 - 5.40 /CUMM) 4.22 Hgb (12.0 - 16.0 G/DL) 13.8 Hct (37 - 47 %) 40.9 MCV (81.0 - 99.0 FL) 97.0 MCH (27.0 - 31.0 PG) 32.7 H RDW (11.5 - 14.5 %) 13.9 Plt Count (130 - 400 /CUMM) 118 L MPV (7.4 - 10.4 FL) 9.8 Gran % (42.2 - 75.2 %) 94.2 H Lymphocytes % (20.5 - 51.1 %) 2.4 L Monocytes % (1.7 - 9.3 %) 3.4 Eosinophils % (0 - 5 %) 0 Basophils % (0.0 - 2.0 %) 0 L Absolute Granulocytes (1.4 - 6.5 /CUMM) 19.6 H Absolute Lymphocytes (1.2 - 3.4 /CUMM) 0.5 L Absolute Monocytes (0.10 - 0.60 /CUMM) 0.7 H Absolute Eosinophils (0.0 - 0.7 /CUMM) 0 Absolute Basophils (0.0 - 0.2 /CUMM) 0 Normocytic RBCs VERIFIED Normochromic RBCs VERIFIED PUBS MCHC (33.0 - 37.0 G/DL) 33.7 Microbiology Date/Time Procedure - Status Source Growth 11/11 1527 Legionella Antigen - RES URINE ROUT 11/10 152 Streptococcus pneumoniae Antigen (M - RES URINE ROUT 11/10 1528 Urine Culture - RES URINE ROUT 11/10 1258 Respiratory Culture - COLB LOWER RESP 11/10 1258 Gram Stain - COLB LOWER RESP 11/10 1045 Blood Culture - RES BLOOD GRAM NEGATIVE RODS 11/10 1030 Blood Culture - RES BLOOD GRAM NEGATIVE RODS Impression/Plan Impression/Plan Impression/Plan: HEENT: Normal EENT exam, head normocephalic, moist mucous membranes Pupils equally round and reactive to light. Neck: Supple, no lymphadenopathy Back: Normal inspection Cardiovascular: Regular rate and rhythm with no murmurs, rubs, or gallops. No carotid bruits or JVD Abdomen: Soft, nontender, and nondistended. Organomegaly appreciated. Normoactive bowel sounds Extremity: Bilateral, nonpitting lower extremity edema with no overlying erythema, no calf tenderness to palpation, normal and equal pulses. Capillary refill less than 2 seconds Neuro: Alert oriented x3, cranial nerves II through XII grossly intact. Skin: Redness with eccymosis in the forearm, skin is warm and dry. 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 with low platelets increased bilirubin needs follow up and work up * 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 * Thrombocytopenia related to liver disease * Vitamin D deficiency, history of hypertension relatively stable REC Change to iv ceftaz, Appears to be responding to ceftriaxone but will defer to ID Check urine analysis Ask ID to see patient today Reduce steroids to prednisone 30 in am and rapid taper off Cont nebs Warm compress to the arm Hold lasix for now REplace potassium 40 meq po bid IV normal saline 75 cc per hour and later in the evening obtain ct chest abd and pelvis with IVC Rpt lfts for now, Check INR
--- NOTE | 2016-11-11 11:18 | PN- Cardiology ---
Subjective Subjective: The patient is awake, alert The events of the last 24 hours as well as telemetry were reviewed. Review of Systems: The review of systems is negative for chest pains, palpitations nor lightheadedness. The remainder of the 14 point review of systems is noncontributory with the exception of above. Objective Vital Signs and I&Os Vital Signs Date Time Temp Pulse Resp B/P B/P Pulse O2 O2 Flow FiO2 Mean Ox Delivery Rate 11/11 1010 70 112/66 / 0800 95 Room Air / 0727 98.1 70 18 112/66 95 Room Air 07/10 0023 99.4 80 18 120/90 94 Room Air 11/11 0000 95 Room Air 11/10 2155 Room Air Room Air 11/10 1746 98.8 73 18 118/60 95 / 1550 99.1 71 18 124/58 96 Room Air / 1445 99.2 94 20 11/10 1327 90 140/70 11/10 1211 100.4 90 20 11/10 1210 Room Air Room Air Intake & Output 11/11 1600 11/11 0800 07/ 0000 /09 1600 / 0800 / 0000 Intake Total 200 960 100 Output Total 500 175 Balance -300 960 -75 Intake, Oral 200 960 100 Output, Urine 500 175 Patient 271 lb 270 lb 176 lb Weight Weight Reported by Patient Measurement Method Physical Exam: General: Nontoxic, no apparent distress. HEENT: Sclera and conjunctiva within normal limits, without xanthelasmas. Neck: Carotids 2+ without bruits. Respiratory: Scattered rhonchi, air movement is good, without accessory respiratory muscle use. Heart: Regular rate and rhythm, without murmurs, without JVD. Abdomen: Soft, nontender, no masses, normoactive bowel sounds. Extremities: Without clubbing, cyanosis, 2 mm pitting edema in both lower extremities to the mid tibial region. Neuro: Nonfocal exam, strength, 5 out of 5 Skin: Within normal limits without lesions. Psych: Mood and affect: Normal Current Medications: Current Medications Sig/Estephania Start time Last Medication Dose Route Stop Time Status Admin Acetaminophen 650 MG Q6P PRN 11/10 1300 AC 07/ PO 2120 Albuterol Sulfate 3 ML Q4P PRN 11/10 2230 AC INH Azithromycin 500 MG DAILY@1230 11/11 1230 AC Sodium Chloride 250 ML IV Azithromycin 500 MG ONCE ONE 11/10 1100 DC 11/10 Sodium Chloride 250 ML IV 11/10 1159 1232 Budesonide/ 2 PUF BID 11/10 1256 AC 11/11 Formoterol Fumarate INH 1011 Ceftriaxone Sodium 1,000 MG DAILY@1200 11/11 1200 AC IV Ceftriaxone Sodium 0 .STK-MED ONE 11/10 1153 DC .ROUTE Enoxaparin Sodium 0 .STK-MED ONE 11/10 1330 DC SC Enoxaparin Sodium 40 MG DAILY 11/10 1254 AC 11/11 SC 1011 Furosemide 20 MG DAILY 11/11 1000 DC IV Furosemide 40 MG DAILY 11/11 1000 AC 11/11 IV 1011 Furosemide 0 .STK-MED ONE 11/10 1153 DC IV Ibuprofen 600 MG Q6P PRN 11/10 1300 AC PO Losartan Potassium 0 .STK-MED ONE 11/10 1330 DC PO Losartan Potassium 100 MG DAILY 11/10 1256 AC 11/11 PO 1010 Methylprednisolone 40 MG BID 11/11 1000 AC 11/11 IV 1011 Oxycodone/ 2 TAB Q6P PRN 11/10 1300 AC Acetaminophen PO Results Last 48 Hrs of Labs/Mics: Laboratory Tests 11/11/16 0700: Anion Gap 7, Estimated GFR > 60, BUN/Creatinine Ratio 26.7 H, CBC w Diff NO MAN DIFF REQ, RBC 3.66 L, MCV 98.5, MCH 32.6 H, RDW 14.5, MPV 10.3, Gran % 78.5 H , Lymphocytes % 11.4 L, Monocytes % 8.6, Eosinophils % 0.9, Basophils % 0.6, Absolute Granulocytes 6.4, Absolute Lymphocytes 0.9 L, Absolute Monocytes 0.7 H, Absolute Eosinophils 0.1, Absolute Basophils 0.1, PUBS MCHC 33.1 11/11/16 0130: Troponin I 0.07 11/10/16 2020: Troponin I 0.07 11/10/16 1431: Lactic Acid 2.0 11/10/16 1024: Lactic Acid Cancelled 11/10/16 1007: Anion Gap 8, Estimated GFR > 60, BUN/Creatinine Ratio 26.3 H, Glucose 120 H, Lactic Acid 2.4 H, Calcium 9.2, Total Bilirubin 2.2 H, AST 34, ALT 31, Alkaline Phosphatase 81, Troponin I 0.08, Bja-F-Tjmcxifhjgd Pept 6060 H, Total Protein 6.0 L, Albumin 3.2 L, Globulin 2.8, Albumin/Globulin Ratio 1.1, CBC w Diff MAN DIFF ORDERED, RBC 4.22, MCV 97.0, MCH 32.7 H, RDW 13.9, MPV 9.8, Gran % 94.2 H, Lymphocytes % 2.4 L, Monocytes % 3.4, Eosinophils % 0, Basophils % 0 L, Absolute Granulocytes 19.6 H, Absolute Lymphocytes 0.5 L, Absolute Monocytes 0.7 H, Absolute Eosinophils 0, Absolute Basophils 0, Normocytic RBCs VERIFIED, Normochromic RBCs VERIFIED, PUBS MCHC 33.7 Assessment/Plan Assessment/Plan 76-year-old female with past medical history significant for COPD not on home oxygen, stage I diastolic congestive heart failure on Lasix as needed, bilateral leg swelling, hypertension, history of cirrhosis, bilateral knee replacements, heparin-induced thrombocytopenia, solitary lung nodule, history of smoking presented to emergency department with chief complaint of fevers and a productive cough. On arrival, she was noted to have an elevated white blood cell count (20.8), as well as an elevated BNP level (6060), and a chest x-ray consistent with congestive heart failure. Dyspnea: Likely multifactorial including a COPD exacerbation, infection as well as acute on chronic congestive heart failure secondary to diastolic dysfunction. An echocardiogram performed in August of this year demonstrated an LVEF of 55% with mild diastolic dysfunction, and no significant valvular abnormalities. Appreciate pulmonary input, and we will continue current regimen of antibiotics and treatment of underlying COPD as per pulmonary. Given the diastolic congestive heart failure, we would attempt to maintain a euvolemic state. Continue telemetry? Yes
[2016-11-11 15:10] VITALS: BP 118/64
[2016-11-11 17:29] LABS: PT 19.1 SEC (9.4-12.5)
--- NOTE | 2016-11-11 18:10 | CT SCAN REPORT ---
EXAMINATION: CT CHEST WITH CONTRAST CLINICAL INFORMATION: Cough and shortness of breath. COMPARISON: Chest CT 12/11/2015. TECHNIQUE: Multidetector volumetric CT imaging of the chest was obtained after the administration of 95 mL of Optiray 320 intravenous contrast without immediate adverse reactions. Axial MIP volume rendering provided. Sagittal and coronal reformatted images were obtained. DLP: 1636 mGy-cm FINDINGS: LUNGS: Clear, free of infiltrate or airspace disease. No new or suspicious-appearing pulmonary nodules to suggest a primary malignancy or metastatic disease. Scattered 7 mm and under pulmonary nodules bilaterally appear unchanged back to 09/14/2011 likely incidental. MEDIASTINUM: No lower cervical, mediastinal, or hilar lymphadenopathy is identified. There is moderate atherosclerotic arterial calcifications. Aorta is nonaneurysmal. Pulmonary arteries nondilated. PLEURA: There is no pleural effusion. No pleural mass or thickening. AXILLA: There are scattered small axillary lymph nodes, the largest superiorly in the right axilla, the largest measuring 12 mm short axis dimension image 12 of series 2, unchanged back to 09/23/2011. LIVER AND SPLEEN: Liver appears mildly heterogeneous with a subtle nodular contour without focal lesions. There is recanalization of the periumbilical vein. Does the patient have a history of cirrhosis? Laboratory correlation recommended including hepatitis panel. Spleen is upper limits of normal at 11 cm. PANCREAS GALLBLADDER AND BILIARY TREE: Pancreas and biliary tree appear unremarkable in this postcholecystectomy patient. KIDNEYS, URETERS, AND ADRENALS: There is a 1.8 cm cyst in the upper pole of the right kidney largely unchanged back to 2012 exam. URINARY BLADDER: Partially fluid-filled and unremarkable. GI TRACT: Scattered left-sided colonic diverticula without evidence of diverticulitis. Appendix appears unremarkable. Small bowel loops nondilated. Stomach and duodenum normal positions. PERITONEAL CAVITY: There is no intraperitoneal free fluid identified. No focal masses or free air. RETROPERITONEUM: There is a dilated varix extending from an attenuation junction of the superior mesenteric vein and portal vein extending caudally into the retroperitoneum and eventually draining into the inferior vena cava suggesting portal venous hypertension. Main portal vein measures 1.8 cm. PELVIC ORGANS: Urinary bladder partially distended, uterus is not visualized. Adnexa regions unremarkable. OSSEOUS STRUCTURES: No aggressive osseous lesions. ANTERIOR ABDOMINAL WALL AND SOFT TISSUES: No hernia is identified. IMPRESSION: 1. No acute process is identified. 2. Stable-appearing nonspecific pulmonary nodules. 3. Findings suggesting cirrhosis and portal hypertension. Clinical and laboratory correlation recommended. 4. Colonic diverticulosis, no evidence of diverticulitis. 5. Postsurgical changes as noted.
--- NOTE | 2016-11-11 20:09 | ECHOCARDIOGRAM REPORT ---
WANDA COWAN Age: 76 : 1940 Gender: F Exam Date: 11/11/2016 16:01 Exam Location: [place] Ht (in): 66 Wt (lb): 271 BSA: 2.46 BP: 118 / 64 Ordering Physician: QUANG JONES M Referring Physician: Mathieu Phipps M.D. Technologist: Rach Rondon RD Room Number: 184 Indications: HEART FAILURE Rhythm: Sinus Technical Quality: fair FINDINGS Left Ventricle Normal size left ventricle. Left ventricular wall thickness mildly increased. Normal left ventricular ejection fraction estimated at 60-65%. Abnormal relaxation filling pattern of the left ventricle for age (stage 1 diastolic dysfunction). Right Ventricle Normal right ventricular size and function. Right Atrium Normal right atrial size. Left Atrium Moderate left atrial dilatation. Mitral Valve Moderate mitral annular calcification. Mild mitral stenosis. Trace to mild mitral regurgitation. Aortic Valve Diffuse thickening of the aortic valve cusps with reduced excursion. Mild aortic stenosis. Tricuspid Valve Tricuspid valve is normal in structure and function. Trace to mild tricuspid regurgitation. Pulmonic Valve Pulmonic valve not well visualized, grossly normal. Pericardium No pericardial effusion. Great Vessels Normal size aortic root. CONCLUSIONS Normal left ventricular systolic function wih mild concentric hypertrophy. Moderate Left atrial enlargement. Moderate Mitral annular calcification with mild Mitral stenosis. Mild Aortic stenosis. Xiang Krause M.D. (Electronically Signed) Final Date: 11 November 2016 20:08 MEASUREMENTS (Male / Female) Normal Values 2D ECHO LV Diastolic Diameter PLAX 5.3 cm 4.2 - 5.9 / 3.9 - 5.3 cm LV Systolic Diameter PLAX 3.5 cm 2.1 - 4.0 cm LV Fractional Shortening PLAX 34.0 % 25 - 46 % LV Ejection Fraction 2D Teich 62.4 % IVS Diastolic Thickness 1.3 cm LVPW Diastolic Thickness 1.3 cm LV Relative Wall Thickness 0.5 RV Internal Dim ED PLAX 3.3 cm 1.9 - 3.8 cm LVOT Diameter 2.2 cm Aortic Root Diameter 3.2 cm LA Systolic Diameter LX 5.4 cm 3.0 - 4.0 / 2.7 - 3.8 cm LA Volume 50.0 cm 18 - 58 / 22 - 52 cm Ascending Aorta Diameter 3.5 cm DOPPLER AV Peak Velocity 240.0 cm/s AV Peak Gradient 23.0 mmHg AV Mean Velocity 183.0 cm/s AV Mean Gradient 15.0 mmHg AV Velocity Time Integral 63.0 cm LVOT Peak Velocity 162.0 cm/s LVOT Peak Gradient 10.5 mmHg LVOT Mean Velocity 127.0 cm/s LVOT Mean Gradient 7.0 mmHg LVOT Velocity Time Integral 46.8 cm LVOT Stroke Volume 177.9 cm AV Area Cont Eq vti 2.8 cm AV Area Cont Eq pk 2.6 cm MV Peak Velocity 160.0 cm/s MV Peak Gradient 10.2 mmHg MV Mean Velocity 92.0 cm/s MV Mean Gradient 4.0 mmHg Mitral E Point Velocity 129.0 cm/s Mitral A Point Velocity 128.0 cm/s Mitral E to A Ratio 1.0 MV PHT Velocity 119.0 cm/s MV Deceleration [place] 230.0 cm/s MV Pressure Half Time 155.2 ms MV Area PHT 1.4 cm MV Deceleration Time 187.0 ms PV Peak Velocity 138.0 cm/s PV Peak Gradient 7.6 mmHg PV Mean Velocity 97.0 cm/s PV Mean Gradient 4.0 mmHg PV Velocity Time Integral 27.9 cm LV E' Lateral Velocity 4.6 cm/s Mitral E to LV E' Lateral Ratio 28.0 LV E' Septal Velocity 5.1 cm/s Mitral E to LV E' Septal Ratio 25.4
[2016-11-11 23:20] VITALS: BP 132/80
[2016-11-12 06:51] VITALS: BP 110/78
--- NOTE | 2016-11-12 08:24 | PN- Housestaff ---
Subjective Follow-up For: 1. Acute on chronic CHF 2. Pneumonia 3. Possible COPD exacerbation 4. Hypertension Complaints: no complaints Tele-Events Since Last Visit: Overnight patient had normal sinus rhythm and first-degree heart block rate 62- 82, ME interval 0.22, PVCs, triplets, couplets Subjective: A she is seen and examined bedside. Is sitting up in bed eating breakfast. Patient says that she feels okay. Her cough is the same as yesterday and she's still experiencing orthopnea. She has a productive cough but cannot produce sputum. She has shortness of breath on minimal exertion. She denies headache chest pain abdominal pain. She has not had any constipation or diarrhea Review of Systems Constitutional: Reports: weakness. EENTM: Reports: no symptoms. Cardiovascular: Reports: edema, orthopena, peripheral edema. Denies: chest pain, palpitations, syncope. Respiratory: Reports: cough, orthopnea, short of breath. Denies: sputum production. Gastrointestinal: Reports: no symptoms. Genitourinary: Reports: no symptoms. Musculoskeletal: Reports: no symptoms. Skin: Reports: erythema (arm erythema bilaterally). Neurological/Psychological: Reports: no symptoms. Hematologic/Endocrine: Reports: bruising. Immunologic/Allergic: Reports: no symptoms. Objective Last 24 Hrs of Vital Signs/I&O Vital Signs Date Time Temp Pulse Resp B/P B/P Pulse O2 O2 Flow FiO2 Mean Ox Delivery Rate 11/12 0934 98.4 80 18 122/82 11/12 0651 98.4 80 18 110/78 96 Room Air 11/11 2320 98.7 78 18 132/80 97 Room Air 11/11 2223 Room Air 11/11 2020 96 Room Air 11/11 1510 98.2 86 18 118/64 96 Room Air Intake & Output 11/12 1600 11/12 0800 11/12 0000 Intake Total 850 995 Output Total 725 700 Balance 125 295 Intake, IV 600 395 Intake, Oral 250 600 Output, Urine 725 700 Patient 274 lb Weight Weight Chair scale Measurement Method Physical Exam General Appearance: Alert, Oriented X3, Cooperative, No Acute Distress Skin: patient has bilateral arm erythema and warmness, is slightly improved from yesterday, several ecchymoses scattered Skin Temp/Moisture Exam: Warm/Dry HEENT: Atraumatic, EOMI, Mucous Membr. moist/pink Neck: Supple Cardiovascular: Regular Rate, Normal S1, Normal S2, No Murmurs, Gallops, Rubs Lungs: Clear to Auscultation, Normal Air Movement Abdomen: Normal Bowel Sounds, Soft, No Tenderness, No Hepatospenomegaly, No Masses Neurological: Normal Speech Extremities: 2+ pitting edema bilaterally lower extremities Vascular: Normal Pulses, Pulses Symmetrical Sepsis Peripheral Pulse Location: Radial Sepsis Peripheral Pulse Exam: Normal Current Medications: Current Medications Sig/Estephania Start time Last Medication Dose Route Stop Time Status Admin Acetaminophen 650 MG .STK-MED ONE 11/12 0114 DC PO 11/12 0115 Acetaminophen 650 MG Q6P PRN 11/10 1300 AC 11/12 PO 0116 Albuterol Sulfate 3 ML Q4P PRN 11/10 2230 AC INH Azithromycin 500 MG DAILY@1230 11/11 1230 DC 11/11 Sodium Chloride 250 ML IV 1146 Budesonide/ 2 PUF BID 11/10 1256 AC 11/12 Formoterol Fumarate INH 0935 Ceftazidime 1,000 MG IQ8 11/11 1600 AC 11/12 IV 0823 Ceftriaxone Sodium 1,000 MG DAILY@1200 11/11 1200 DC 11/11 IV 1146 Enoxaparin Sodium 40 MG DAILY 11/10 1254 AC 11/12 SC 0934 Furosemide 20 MG DAILY 11/12 1129 UNVr PO Furosemide 40 MG DAILY 11/11 1000 DC 11/11 IV 1011 Ibuprofen 600 MG Q6P PRN 11/10 1300 AC PO Losartan Potassium 100 MG DAILY 11/10 1256 AC 11/12 PO 0934 Methylprednisolone 40 MG BID 11/11 1000 DC 11/11 IV 11/11 2300 2120 Oxycodone/ 2 TAB Q6P PRN 11/10 1300 AC Acetaminophen PO Potassium Chloride 40 MEQ ONCE ONE 11/12 0745 DC 11/12 PO 11/12 0746 0830 Potassium Chloride 40 MEQ ONCE ONE 11/11 1500 DC 11/11 PO 11/11 1501 1758 Prednisone 30 MG DAILY 11/13 1000 DC PO Prednisone 30 MG DAILY 11/12 1000 AC PO Sodium Chloride 1,000 ML Q13H 11/11 1500 AC 11/11 IV 1559 Last 24 Hrs of Lab/Mina Results Last 24 Hrs of Labs/Mics: Laboratory Tests 11/12/16 0653: Sodium Cancelled, Potassium Cancelled, Chloride Cancelled, Carbon Dioxide Cancelled, Anion Gap Cancelled, BUN Cancelled, Creatinine Cancelled, BUN/ Creatinine Ratio Cancelled 11/12/16 0653: Anion Gap 8, Estimated GFR > 60, BUN/Creatinine Ratio 31.3 H, Total Bilirubin 1.0, Direct Bilirubin 0.5 H, AST 26, ALT 28, Alkaline Phosphatase 74, Total Protein 5.9 L, Albumin 2.9 L, CBC w Diff NO MAN DIFF REQ, RBC 4.15 L, MCV 98.3, MCH 32.7 H, RDW 14.4, MPV 10.4, Gran % 87.9 H, Lymphocytes % 8.9 L, Monocytes % 2.9, Eosinophils % 0.2, Basophils % 0.1, Absolute Granulocytes 5.8, Absolute Lymphocytes 0.6 L, Absolute Monocytes 0.2, Absolute Eosinophils 0, Absolute Basophils 0, PUBS MCHC 33.3 11/11/16 1550: PT 19.1 H, INR 1.83 H 11/11/16 1520: Urine Color YEL, Urine Clarity CLEAR, Urine pH 6.0, Ur Specific [place] 1.015, Urine Protein NEG, Urine Ketones NEG, Urine Nitrite NEG, Urine Bilirubin NEG, Urine Urobilinogen 0.2, Ur Leukocyte Esterase NEG, Ur Microscopic EXAM NOT REQUIRED, Urine Hemoglobin NEG, Urine Glucose NEG Microbiology 11/11 1538 LOWER RESP: Respiratory Culture - COLB 11/11 1538 LOWER RESP: Gram Stain - COLB Orders ECHO Findings: Echocardiogram CONCLUSIONS Normal left ventricular systolic function wih mild concentric hypertrophy. Moderate Left atrial enlargement. Moderate Mitral annular calcification with mild Mitral stenosis. Mild Aortic stenosis. Radiology Findings: Chest abdomen pelvis CT IMPRESSION: 1. No acute process is identified. 2. Stable-appearing nonspecific pulmonary nodules. 3. Findings suggesting cirrhosis and portal hypertension. Clinical and laboratory correlation recommended. 4. Colonic diverticulosis, no evidence of diverticulitis. 5. Postsurgical changes as noted. Lines/Diet/Fluids Lines: peripheral lines Assessment/Plan Assessment: Assessment 76-year-old female with past medical history significant for COPD not on home oxygen, stage I diastolic congestive heart failure on Lasix as needed, bilateral leg swelling, hypertension, history of cirrhosis, bilateral knee replacements, heparin-induced thrombocytopenia, solitary lung nodule, history of smoking presented to emergency department with chief complaint of fever, productive cough and shortness of breath at rest. Temperature on admission was 100.9, all other vitals within normal limits. She was found to have leukocytosis to 21, 000. BEP and liver function test normal. Chest x-ray shows no evidence of pneumonia. Echocardiogram in August 2016 showed ejection fraction 55% in stage I diastolic heart failure. She follows Dr. Padilla primary care doctor. She has not been following any keyboard instrument tuner for 3 months. Echocardiogram from today shows normal left ventricular systolic function with mild concentric hypertrophy and moderate mitral annular calcification. Gram-negative rods in the blood November 10 culture PLAN Her dyspnea is likely multifactorial including COPD exacerbation, infection, acute on chronic diastolic congestive heart failure. Pneumonia/COPD exacerbation Patient fulfilled SIRS criteria on admission. Possible differentials pneumonia/CHF exacerbation/COPD exacerbation. * She was admitted to telemetry floor for further management of pneumonia * Recent is on Ceftazidime day 2 for gram-negative bacteremia, azithromycin and ceftriaxone were stopped. * CT abdomen and pelvis chest show no infectious source * Monitor vitals closely every shift * Maintain oxygen saturations greater than 90% * Provide supplemental oxygen if necessary * Urine culture negative after 2 days * Urine Legionella and strep antigens negative * Follow blood cultures, sputum cultures were not able to be obtained, UA is negative * Closely monitor for fever and leukocytosis * Repeat CBCs in the morning to look for WBC count was 20.8 now is 6.7 Possible COPD exacerbation Patient presented with ongoing cough, sputum production, shortness of breath. Of note patient has history of COPD. She smoked 1 pack per day for 40 years. She quit smoking 10 years ago. She uses aclidinium and Symbicort inhalers at home. * Total respiratory care * duonebs * lungs were clear but patient is coughing, steroid by mouth 30mg, taper as per dr. padilla, patient is currently not on IV steroids * See if patient can obtain sputum for culture * Continue antibiotics day 2 ceftaz History of bilateral pulmonary nodules She has Numerous bilateral pulmonary nodules measuring up to 6 mm, unchanged since 2011, from last CAT scan December 2015 and new CAT scan done on 11/11/2016. No new or enlarging nodules are identified. Acute on chronic CHF Patient presented with worsening shortness of breath. Also reported fever, productive cough. ProBNP elevated on admission 6060. Chest x-ray findings suggestive of cardiomegaly. * Echo done today shows no evidence of systolic dysfunction * She was on Lasix 40 mg at home as needed for leg swelling * Cardiology was consulted and suggested we restart Lasix 20 g by mouth daily * potassium 4.2 up from 3.3. hypertension Continue home medication losartan Full code DVT prophylaxis-subcutaneous Lovenox Pain pathway Regular diet Problem List: 1. CHF exacerbation 2. Hypertension 3. PNA (pneumonia) Pain Ratin Pain Location: Bilateral arms, itchiness and pain Pain Goal: Pain 4 or less Pain Plan: Percocet and Motrin Tomorrow's Labs & Rationales: CBC, BEP to monitor renal function as she is now on Lasix 20 mg by mouth
[2016-11-12 08:31] LABS: ABSOLUTE BASOPHIL COUNT 0 /CUMM (0.0-0.2); ABSOLUTE EOSINOPHIL COUNT 0 /CUMM (0.0-0.7); ABSOLUTE GRANULOCYTE CT 5.8 /CUMM (1.4-6.5); ABSOLUTE LYMPH COUNT 0.6 /CUMM (1.2-3.4); ABSOLUTE MONOCYTE COUNT 0.2 /CUMM (0.10-0.60); BASOPHIL % 0.1 % (0.0-2.0); EOSINOPHIL % 0.2 % (0-5); HEMATOCRIT 40.8 % (37-47); MEAN CORPUSCULAR HGB 32.7 PG (27.0-31.0); MEAN CORPUSCULAR HGB CONC 33.3 G/DL (33.0-37.0); MEAN CORPUSCULAR VOLUME 98.3 FL (81.0-99.0); MEAN PLATELET VOLUME 10.4 FL (7.4-10.4); PLATELET COUNT 116 /CUMM (130-400); RBC DISTRIBUTION WIDTH 14.4 % (11.5-14.5); RED BLOOD CELL CT 4.15 /CUMM (4.20-5.40); WHITE BLOOD CELL COUNT 6.7 /CUMM (4.8-10.8)
[2016-11-12 09:46] LABS: GRANULOCYTE % 87.9 % (42.2-75.2)
--- NOTE | 2016-11-12 11:22 | PN- Cardiology ---
Subjective Subjective: Patient still complains of cough and shortness of breath upon minimal exertion. She experiences dyspnea just on moving herself in the bed. She denies chest pain. She states her breathing has improved Review of Systems: Eyes no blurred or double vision Ears no deafness or ringing Nose and throat no recurrent sinusitis Lungs per history of present illness Heart per history of present illness Abdomen no nausea vomiting Musculoskeletal occasional muscle and joint pains Psych no anxiety or depression Neuro without recurrent headache or seizures Endocrine no heat or cold intolerance Objective Vital Signs and I&Os Vital Signs Date Time Temp Pulse Resp B/P B/P Pulse O2 O2 Flow FiO2 Mean Ox Delivery Rate 11/12 0934 98.4 80 18 122/82 11/12 0651 98.4 80 18 110/78 96 Room Air 11/11 2320 98.7 78 18 132/80 97 Room Air 11/11 2223 Room Air 11/11 2020 96 Room Air 11/11 1510 98.2 86 18 118/64 96 Room Air Intake & Output 11/12 1600 11/12 0800 11/12 0000 11/11 1600 11/11 0800 11/11 0000 Intake Total 850 995 762 200 960 Output Total 976 406 5521 500 Balance 125 295 -238 -300 960 Intake, IV 600 395 282 Intake, Oral 250 600 480 200 960 Output, Urine 505 529 6343 500 Patient 274 lb 271 lb 270 lb Weight Weight Chair scale Measurement Method Physical Exam: Patient is a well-developed obese female appearing in mild respiratory distress HEENT is unremarkable Neck is supple there is no JVD Lungs decreased air entry with scattered rhonchi bilaterally right greater than left Heart regular rhythm S1 and S2 are normal no gallops or rubs 2/6 systolic ejection murmur left sternal border Abdomen bowel sounds positive Extremities 2+ edema bilaterally Current Medications: Current Medications Sig/Estephania Start time Last Medication Dose Route Stop Time Status Admin Acetaminophen 650 MG .STK-MED ONE 11/12 0114 DC PO 11/12 0115 Acetaminophen 650 MG Q6P PRN 11/10 1300 AC 11/12 PO 0116 Albuterol Sulfate 3 ML Q4P PRN 11/10 2230 AC INH Azithromycin 500 MG DAILY@1230 11/11 1230 DC 11/11 Sodium Chloride 250 ML IV 1146 Budesonide/ 2 PUF BID 11/10 1256 AC 11/12 Formoterol Fumarate INH 0935 Ceftazidime 1,000 MG IQ8 11/11 1600 AC 11/12 IV 0823 Ceftriaxone Sodium 1,000 MG DAILY@1200 11/11 1200 DC 11/11 IV 1146 Enoxaparin Sodium 40 MG DAILY 11/10 1254 AC 11/12 SC 0934 Furosemide 40 MG DAILY 11/11 1000 DC 11/11 IV 1011 Ibuprofen 600 MG Q6P PRN 11/10 1300 AC PO Losartan Potassium 100 MG DAILY 11/10 1256 AC 11/12 PO 0934 Methylprednisolone 40 MG BID 11/11 1000 DC 11/11 IV 11/11 2300 2120 Oxycodone/ 2 TAB Q6P PRN 11/10 1300 AC Acetaminophen PO Potassium Chloride 40 MEQ ONCE ONE 11/12 0745 DC 11/12 PO 11/12 0746 0830 Potassium Chloride 40 MEQ ONCE ONE 11/11 1500 DC 11/11 PO 11/11 1501 1758 Prednisone 30 MG DAILY 11/13 1000 DC PO Prednisone 30 MG DAILY 11/12 1000 AC PO Sodium Chloride 1,000 ML Q13H 11/11 1500 AC 11/11 IV 1559 Results Last 48 Hrs of Labs/Mics: Laboratory Tests 11/12/16 0653: Sodium Cancelled, Potassium Cancelled, Chloride Cancelled, Carbon Dioxide Cancelled, Anion Gap Cancelled, BUN Cancelled, Creatinine Cancelled, BUN/ Creatinine Ratio Cancelled 11/12/16 0653: Anion Gap 8, Estimated GFR > 60, BUN/Creatinine Ratio 31.3 H, Total Bilirubin 1.0, Direct Bilirubin 0.5 H, AST 26, ALT 28, Alkaline Phosphatase 74, Total Protein 5.9 L, Albumin 2.9 L, CBC w Diff NO MAN DIFF REQ, RBC 4.15 L, MCV 98.3, MCH 32.7 H, RDW 14.4, MPV 10.4, Gran % 87.9 H, Lymphocytes % 8.9 L, Monocytes % 2.9, Eosinophils % 0.2, Basophils % 0.1, Absolute Granulocytes 5.8, Absolute Lymphocytes 0.6 L, Absolute Monocytes 0.2, Absolute Eosinophils 0, Absolute Basophils 0, PUBS MCHC 33.3 11/11/16 1550: PT 19.1 H, INR 1.83 H 11/11/16 1520: Urine Color YEL, Urine Clarity CLEAR, Urine pH 6.0, Ur Specific [place] 1.015, Urine Protein NEG, Urine Ketones NEG, Urine Nitrite NEG, Urine Bilirubin NEG, Urine Urobilinogen 0.2, Ur Leukocyte Esterase NEG, Ur Microscopic EXAM NOT REQUIRED, Urine Hemoglobin NEG, Urine Glucose NEG 11/11/16 0700: Anion Gap 7, Estimated GFR > 60, BUN/Creatinine Ratio 26.7 H, CBC w Diff NO MAN DIFF REQ, RBC 3.66 L, MCV 98.5, MCH 32.6 H, RDW 14.5, MPV 10.3, Gran % 78.5 H , Lymphocytes % 11.4 L, Monocytes % 8.6, Eosinophils % 0.9, Basophils % 0.6, Absolute Granulocytes 6.4, Absolute Lymphocytes 0.9 L, Absolute Monocytes 0.7 H, Absolute Eosinophils 0.1, Absolute Basophils 0.1, PUBS MCHC 33.1 11/11/16 0130: Troponin I 0.07 11/10/16 2020: Troponin I 0.07 11/10/16 1431: Lactic Acid 2.0 Microbiology 11/10 152 URINE ROUT: Legionella Antigen - COMP 11/10 152 URINE ROUT: Streptococcus pneumoniae Antigen (M - COMP 11/11 1527 URINE ROUT: Urine Culture - COMP Telemetry personally reviewed sinus rhythm Recent Imaging Studies: Echocardiogram CONCLUSIONS Normal left ventricular systolic function wih mild concentric hypertrophy. Moderate Left atrial enlargement. Moderate Mitral annular calcification with mild Mitral stenosis. Mild Aortic stenosis. Xiang Krause M.D. Assessment/Plan Assessment/Plan 76-year-old female with past medical history significant for COPD not on home oxygen, stage I diastolic congestive heart failure on Lasix as needed, bilateral leg swelling, hypertension, history of cirrhosis, bilateral knee replacements, heparin-induced thrombocytopenia, solitary lung nodule, history of smoking presented to emergency department with chief complaint of fevers and a productive cough. On arrival, she was noted to have an elevated white blood cell count (20.8), as well as an elevated BNP level (6060), and a chest x-ray consistent with congestive heart failure. Dyspnea: Likely multifactorial including a COPD exacerbation, infection as well as acute on chronic diastolic congestive heart failure. Recommend resuming low-dose Lasix. Would start at 20 mg by mouth daily monitoring her renal function closely COPD; Aggressive management per pulmonary Mild mitral and aortic stenosis: Stable Continue telemetry? Yes
--- NOTE | 2016-11-12 14:34 | PN- Pulmonary ---
Subjective HPI/Critical Care Issues: Much improved cough better Still has excertional dyspnea CT chest abd pelvis reviewed No acute issues other than sig cirrhosis Objective Current Medications: Current Medications Sig/Estephania Start time Last Medication Dose Route Stop Time Status Admin Acetaminophen 650 MG .STK-MED ONE 11/12 0114 DC PO 11/12 0115 Acetaminophen 650 MG Q6P PRN 11/10 1300 AC 11/12 PO 0116 Albuterol Sulfate 3 ML Q4P PRN 11/10 2230 AC INH Azithromycin 500 MG DAILY@1230 11/11 1230 DC 11/11 Sodium Chloride 250 ML IV 1146 Budesonide/ 2 PUF BID 11/10 1256 AC 11/12 Formoterol Fumarate INH 0935 Ceftazidime 1,000 MG IQ8 11/11 1600 AC 11/12 IV 0823 Ceftriaxone Sodium 1,000 MG DAILY@1200 11/11 1200 DC 11/11 IV 1146 Enoxaparin Sodium 40 MG DAILY 11/10 1254 AC 11/12 SC 0934 Furosemide 20 MG DAILY 11/12 1129 AC 11/12 PO 1215 Furosemide 40 MG DAILY 11/11 1000 DC 11/11 IV 1011 Ibuprofen 600 MG Q6P PRN 11/10 1300 AC PO Losartan Potassium 100 MG DAILY 11/10 1256 AC 11/12 PO 0934 Methylprednisolone 40 MG BID 11/11 1000 DC 11/11 IV 11/11 2300 2120 Oxycodone/ 2 TAB Q6P PRN 11/10 1300 AC Acetaminophen PO Patient Medication 1 ED .STK-MED ONE 11/12 1409 DC Teaching ED 11/12 1410 Potassium Chloride 40 MEQ ONCE ONE 11/12 0745 DC 11/12 PO 11/12 0746 0830 Potassium Chloride 40 MEQ ONCE ONE 11/11 1500 DC 11/11 PO 11/11 1501 1758 Prednisone 30 MG DAILY 11/13 1000 DC PO Prednisone 30 MG DAILY 11/12 1000 AC PO Sodium Chloride 1,000 ML Q13H 11/11 1500 AC 11/11 IV 1559 Vital Signs & I&O Last 24 Hrs of Vitals and I&O: Vital Signs Date Time Temp Pulse Resp B/P B/P Pulse O2 O2 Flow FiO2 Mean Ox Delivery Rate 11/12 1405 95 Room Air 11/12 0934 98.4 80 18 122/82 11/12 0651 98.4 80 18 110/78 96 Room Air 11/11 2320 98.7 78 18 132/80 97 Room Air 11/11 2223 Room Air 11/12 2019 96 Room Air 11/11 1510 98.2 86 18 118/64 96 Room Air Intake & Output 11/12 1600 11/12 0800 11/12 0000 Intake Total 850 995 Output Total 725 700 Balance 125 295 Intake, IV 600 395 Intake, Oral 250 600 Output, Urine 725 700 Patient 274 lb Weight Weight Chair scale Measurement Method Impression/Plan Impression/Plan Impression/Plan: PATIENT: WANDA COWAN PRESENT AGE: 76 PATIENT ACCOUNT NO: [id number] : 40 LOCATION: 1NO ORDERING PHYSICIAN: CHRISTIANNE TELLEZ MD SERVICE DATE: 11/11/16- EXAM TYPE: CAT - CT ABD & PELVIS W IV CONTRAST; CT CHEST W IV CONTRAST EXAMINATION: CT CHEST WITH CONTRAST CLINICAL INFORMATION: Cough and shortness of breath. COMPARISON: Chest CT 12/11/2015. TECHNIQUE: Multidetector volumetric CT imaging of the chest was obtained after the administration of 95 mL of Optiray 320 intravenous contrast without immediate adverse reactions. Axial MIP volume rendering provided. Sagittal and coronal reformatted images were obtained. DLP: 1636 mGy-cm FINDINGS: LUNGS: Clear, free of infiltrate or airspace disease. No new or suspicious-appearing pulmonary nodules to suggest a primary malignancy or metastatic disease. Scattered 7 mm and under pulmonary nodules bilaterally appear unchanged back to 09/14/2011 likely incidental. MEDIASTINUM: No lower cervical, mediastinal, or hilar lymphadenopathy is identified. There is moderate atherosclerotic arterial calcifications. Aorta is nonaneurysmal. Pulmonary arteries nondilated. PLEURA: There is no pleural effusion. No pleural mass or thickening. AXILLA: There are scattered small axillary lymph nodes, the largest superiorly in the right axilla, the largest measuring 12 mm short axis dimension image 12 of series 2, unchanged back to 09/23/2011. LIVER AND SPLEEN: Liver appears mildly heterogeneous with a subtle nodular contour without focal lesions. There is recanalization of the periumbilical vein. Does the patient have a history of cirrhosis? Laboratory correlation recommended including hepatitis panel. Spleen is upper limits of normal at 11 cm. PANCREAS GALLBLADDER AND BILIARY TREE: Pancreas and biliary tree appear unremarkable in this postcholecystectomy patient. KIDNEYS, URETERS, AND ADRENALS: There is a 1.8 cm cyst in the upper pole of the right kidney largely unchanged back to 2012 exam. URINARY BLADDER: Partially fluid-filled and unremarkable. GI TRACT: Scattered left-sided colonic diverticula without evidence of diverticulitis. Appendix appears unremarkable. Small bowel loops nondilated. Stomach and duodenum normal positions. PERITONEAL CAVITY: There is no intraperitoneal free fluid identified. No focal masses or free air. RETROPERITONEUM: There is a dilated varix extending from an attenuation junction of the superior mesenteric vein and portal vein extending caudally into the retroperitoneum and eventually draining into the inferior vena cava suggesting portal venous hypertension. Main portal vein measures 1.8 cm. PELVIC ORGANS: Urinary bladder partially distended, uterus is not visualized. Adnexa regions unremarkable. OSSEOUS STRUCTURES: No aggressive osseous lesions. ANTERIOR ABDOMINAL WALL AND SOFT TISSUES: No hernia is identified. IMPRESSION: 1. No acute process is identified. 2. Stable-appearing nonspecific pulmonary nodules. 3. Findings suggesting cirrhosis and portal hypertension. Clinical and laboratory correlation recommended. 4. Colonic diverticulosis, no evidence of diverticulitis. 5. Postsurgical changes as noted. DICTATED BY: PARVEEN DAVIS MD DATE/TIME DICTATED:11/11/161715 HEENT: Normal EENT exam, head normocephalic, moist mucous membranes Pupils equally round and reactive to light. Neck: Supple, no lymphadenopathy Back: Normal inspection Cardiovascular: Regular rate and rhythm with no murmurs, rubs, or gallops. No carotid bruits or JVD Abdomen: Soft, nontender, and nondistended. Organomegaly appreciated. Normoactive bowel sounds Extremity: Bilateral, nonpitting lower extremity edema with no overlying erythema, no calf tenderness to palpation, normal and equal pulses. Capillary refill less than 2 seconds Neuro: Alert oriented x3, cranial nerves II through XII grossly intact. Skin: Redness with eccymosis in the forearm, skin is warm and dry. 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 Overwhelming evidence suggests pneumonia but ct does not show any sig infiltrase now. 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
[2016-11-12 18:00] VITALS: BP 132/74
--- NOTE | 2016-11-12 20:02 | Event Note ---
Event Note Event Note: around 7 pm the patient stated showing tachycardia on the monitor , EKG was done which revealed new A fib , HR around 110-120/min , blood pressure was 130/74, patient was asymptomatic at that time, we tried to contact Dr luis ut he was not signal and communications maintainer, we texted Dr. Negron and left him a message with the [employer] system , he called back and recommended starting the patient on cardizem drip at 7: 40 , to be titerated according to HR , if the patient did not convert to NSR overnight , start pt on IV Heparin.
--- NOTE | 2016-11-12 20:06 | Event Note ---
Event Note Event Note: Situation : At around 6:45 PM today I was told by the nurse that patient's heart rate is running between 110s to 120s, stat EKG was ordered that showed possible atrial fibrillation. Background: This is a 76-year-old female with past medical history significant for COPD not on home oxygen, stage I diastolic congestive heart failure on Lasix as needed, bilateral leg swelling, hypertension, history of cirrhosis, bilateral knee replacements, heparin-induced thrombocytopenia, solitary lung nodule, history of smoking admitted to [facility] for acute on chronic CHF exacerbation with pneumonia Assessment: Patient was asymptomatic, denied any chest discomfort or breathing or any palpitations. Exam was benign. Stat labs including BEP back was was ordered including Mg and phosphorous. Patient was given. dose of IV Cardizem push [address] Negron over the phone and recommended to start the patient on Cardizem drip for rate control. If patient does not convert to normal sinus rhythm overnight ,start the patient on IV heparin.
[2016-11-12 22:00] VITALS: BP 124/80
[2016-11-13 07:28] VITALS: BP 134/70
--- NOTE | 2016-11-13 08:16 | PN- Housestaff ---
See Addendum Subjective Follow-up For: 1. Acute on chronic CHF 2. Pneumonia 3. COPD exacerbation 4. Hypertension 5. Paroxysmal afib Complaints: no complaints Tele-Events Since Last Visit: Overnight patient was sinus rhythm 66-75 until 8 PM when she converted to A. fib rates 114-123. She was given a 5 mg Cardizem push to good effect. She had previously converted to A. fib at around [address] Luciano advised starting a Cardizem drip to be titrated according to heart rate and it patient did not convert to normal sinus rhythm to start her on a heparin. This morning patient had a questionable fast run of atrial fibrillation and Dr. Alanis suggested starting her on eliquis 5 mg twice a day. Subjective: Patient was seen and examined bedside. She states that she is breathing better, still has some shortness of breath on arranging herself in bed. But none on walking to the bathroom. She has an occasional cough with sputum production. Complains of some edema in her feet. She denies headache, dizziness, vision change, chest pain, stomach pain, urinary symptoms. She complains of some developing constipation. Review of Systems Constitutional: Reports: no symptoms. EENTM: Reports: no symptoms. Cardiovascular: Reports: orthopena, peripheral edema. Respiratory: Reports: cough, orthopnea, short of breath, sputum production. Gastrointestinal: Reports: constipation. Genitourinary: Reports: no symptoms. Musculoskeletal: Reports: no symptoms. Skin: Reports: erythema (erythema arms itchiness). Neurological/Psychological: Reports: no symptoms. Hematologic/Endocrine: Reports: bruising. Objective Last 24 Hrs of Vital Signs/I&O Vital Signs Date Time Temp Pulse Resp B/P B/P Pulse O2 O2 Flow FiO2 Mean Ox Delivery Rate 11/13 0933 76 134/70 11/13 0920 98 Room Air 11/13 0800 Room Air 11/13 0728 98.7 76 18 134/70 97 Room Air 11/12 2200 99.0 64 16 124/80 95 Room Air 11/12 2142 95 Room Air 11/129 97 Room Air 11/12 1800 130 132/74 11/12 1405 95 Room Air Intake & Output 11/13 1600 11/13 0800 11/13 0000 Intake Total 100 120 Output Total 850 600 Balance -750 -480 Intake, IV 100 Intake, Oral 120 Output, Urine 850 600 Patient 279 lb Weight Weight Chair scale Measurement Method Physical Exam General Appearance: Alert, Oriented X3, Cooperative, No Acute Distress Skin: patient has bilateral arm erythema, itchiness, ecchymoses. Skin Temp/Moisture Exam: Warm/Dry Sepsis Skin Exam (color): Normal for Ethnicity HEENT: Atraumatic, PERRLA, EOMI, Mucous Membr. moist/pink Neck: Supple, No JVD, No thryomegaly Cardiovascular: Regular Rate, Normal S1, Normal S2, No Murmurs, Gallops, Rubs Lungs: crackles bilaterally Abdomen: Normal Bowel Sounds, Soft, No Tenderness Neurological: Normal Speech Extremities: No Clubbing, No Cyanosis, Normal Pulses, edema bilaterally lower Vascular: Normal Pulses, Pulses Symmetrical Sepsis Peripheral Pulse Location: Radial Sepsis Peripheral Pulse Exam: Normal Current Medications: Current Medications Sig/Estephania Start time Last Medication Dose Route Stop Time Status Admin Acetaminophen 650 MG .STK-MED ONE 11/13 0032 DC PO 11/13 0033 Acetaminophen 650 MG Q6P PRN 11/10 1300 AC 11/13 PO 0033 Albuterol Sulfate 3 ML Q4P PRN 11/10 2230 AC INH Apixaban 5 MG BID 11/13 1000 AC PO Budesonide/ 2 PUF BID 11/10 1256 AC 11/13 Formoterol Fumarate INH 0931 Ceftazidime 1,000 MG IQ8 11/11 1600 AC 11/13 IV 0814 Diltiazem HCl 125 MG Q8H 11/12 2000 DC 11/12 Sodium Chloride 100 ML IV 2103 Diltiazem HCl 5 MG ONCE ONE 11/12 1945 DC IV PUSH 11/12 1946 Diphenhydramine HCl 1 TARIK TID PRN 11/13 0800 AC 11/13 TOP 0934 Enoxaparin Sodium 40 MG DAILY 11/10 1254 DC 11/12 SC 0934 Furosemide 40 MG DAILY 11/13 1000 AC PO Furosemide 20 MG DAILY 11/12 1129 AC 11/13 PO 0933 Ibuprofen 600 MG Q6P PRN 11/10 1300 AC PO Losartan Potassium 100 MG DAILY 11/10 1256 AC 11/13 PO 0933 Magnesium Sulfate 1 GM ONCE ONE 11/13 0800 AC Dextrose/Water 100 ML IV 11/13 1159 Magnesium Sulfate 1 GM ONCE ONE 11/12 2200 DC 11/13 Dextrose/Water 100 ML IV 11/13 0159 0032 Oxycodone/ 2 TAB Q6P PRN 11/10 1300 AC Acetaminophen PO Patient Medication 1 ED .K-MED ONE 11/12 1409 MT Teaching ED 11/12 1410 Polyethylene Glycol 17 GM DAILY 11/13 1000 AC 11/13 PO 0934 Prednisone 30 MG DAILY 11/12 1000 DC PO Senna 187 MG AT BEDTIME PRN 11/13 2200 AC PO Sodium Chloride 1,000 ML Q13H 11/11 1500 DC 11/11 IV 1559 Last 24 Hrs of Lab/Mina Results Last 24 Hrs of Labs/Mics: Laboratory Tests 11/13/16 0644: Anion Gap 9, Estimated GFR 54 L, BUN/Creatinine Ratio 28.0 H 11/12/16 1953: Anion Gap 9, Estimated GFR 54 L, BUN/Creatinine Ratio 26.0 H Orders EKG Findings: EKG done today shows questionable atrial fibrillation, sinus rhythm rate 78. ECHO Findings: Patient has a normal left ventricular ejection fraction of 60-65% with an abnormal relaxation filling pattern suggestive for stage I diastolic dysfunction Miscellaneous Findings: CT chest was negative for an infectious source Lines/Diet/Fluids Lines: peripheral lines Assessment/Plan Assessment: Assessment 76-year-old female with past medical history significant for COPD not on home oxygen, stage I diastolic congestive heart failure on Lasix as needed, bilateral leg swelling, hypertension, history of cirrhosis, bilateral knee replacements, heparin-induced thrombocytopenia, solitary lung nodule, history of smoking presented to emergency department with chief complaint of fever, productive cough and shortness of breath at rest. Temperature on admission was 100.9, all other vitals within normal limits. She was found to have leukocytosis to 21, 000. BEP and liver function test normal. Chest x-ray shows no evidence of pneumonia. Echocardiogram in August 2016 showed ejection fraction 55% in stage I diastolic heart failure. She follows Dr. Padilla primary care doctor. 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 Echocardiogram from yesterday shows normal left ventricular systolic function with mild concentric hypertrophy and moderate mitral annular calcification. Gram-negative rods in the November 10 blood culture now positive for Pasteurella multocida, sensitivities to follow. Patient is currently on ceftazidime for gram-negative bacteremia. Overnight patient converted to A. fib and then back to normal sinus rhythm after being dosed Cardizem. Currently she is in normal sinus rhythm. PLAN Her dyspnea is likely multifactorial including COPD exacerbation, infection, acute on chronic diastolic congestive heart failure. Pneumonia : Patient has symptoms, we are unable to isolate infectious lung source. Patient fulfilled SIRS criteria on admission. * She was admitted to telemetry floor for further management of pneumonia * Blood culture was positive for Pasteurella multocida and Bactrim was started today. * Patient today recounts that she was bit by a cat on her left hand * Ceftazidime stopped, azithromycin and ceftriaxone were stopped. * CT abdomen and chest pelvis show no infective source * Monitor vitals closely every shift * Maintain oxygen saturations greater than 90% * Provide supplemental oxygen if necessary * Urine culture negative after 3 days * Urine Legionella and strep antigens negative * Follow blood cultures, sputum cultures were not able to be obtained, UA is negative * Closely monitor for fever and leukocytosis * WBC count is better now at 6.7, down from 20.8. Possible COPD exacerbation Patient presented with ongoing cough, sputum production, shortness of breath. Of note patient has history of COPD. She smoked 1 pack per day for 40 years. She quit smoking 10 years ago. She uses aclidinium and Symbicort inhalers at home. * Total respiratory care * Duonebs * lungs were clear, only slight crackles, P0 steroids are currently off as per dr. padilla, patient is currently not on IV steroids * See if patient can obtain sputum for culture * Ceftaz is currently off due to isolation of Pasteurella in blood cultures. History of bilateral pulmonary nodules She has Numerous bilateral pulmonary nodules measuring up to 6 mm, unchanged since 2011, from last CAT scan December 2015 and new CAT scan done on 11/11/2016. No new or enlarging nodules are identified. Acute on chronic CHF Patient presented with worsening shortness of breath. ProBNP elevated on admission 6060. Chest x-ray findings suggestive of cardiomegaly. Patient is still experiencing orthopnea, some shortness of breath, and edema and her weight has increased by 9 pounds since admission. Her chest sounds better with only some crackles. Yesterday her intake and output was net +725 mL. Blood pressure is normal. * Echo done yesterday shows no evidence of systolic dysfunction * She was on Lasix 40 mg at home as needed for leg swelling * As per cardiology we can increase Lasix to 40 mg by mouth * Patient has normal kidney function with a creatinine of 1.0 * potassium 3.9 up from 3.3. Paroxysmal A. fib * Patient converted to A. fib last night and then back to normal sinus rhythm after being dosed Cardizem. Patient is to be followed on telemetry and dosed Cardizem if paroxysmal a. fib returns. * She has been started Eliquis 5 mg twice a day for anticoagulation related to her a. fib by Dr. Alanis. Arm irritation * Patient has been given Benadryl for arm itchiness and irritation Constipation * Patient has been started on senna and MiraLAX today. Hypertension Continue home medication losartan Full code DVT prophylaxis-Eliquis Pain pathway Regular diet Problem List: 1. CHF exacerbation 2. PNA (pneumonia) 3. Hypertension 4. Paroxysmal a-fib Pain Ratin Pain Location: NA Pain Goal: Remain pain free Pain Plan: NA Tomorrow's Labs & Rationales: BEP to monitor kidney function and effect of Lasix increase
--- NOTE | 2016-11-13 08:31 | PN- Student ---
Subjective Subjective: Today Ms. Craig says she is feling alright. She states her cough has remained unchanged for since yesterday but improved since admission. Patient is also complaining of itchiness on her forearms which she said is chronic and due to her liver cirrhosis. Patient also stated she has not had a proper bowel movement for a few days. Patient denies any pain. After informing patient of pasturella positive blood culture she did note a cat bite that broke the skin on her right hand 3 days before presenting to the ED. Objective Objective: Vitals T: 98.7, P 76, RR 18, BP 134/70, O2 sat 97% on room air Physical Exam General: Patient is sitting comfortably on bed side in no acute distress. CV: Normal S1S2 no murmurs, rubs, or gallops. Lungs: Scattered crackles bilaterlly posteriorly. Extremities: Bilateral pedal edema unchanged. Bilateral ecchymosis on forearms. Patient appeared to be in Afib on gas controller. EKG showed NSR. Overnight Telemetry Overnight NSR 66-75, Some multifocal PVC's and PAC's. First degree AV block. 18:00 Afib 114-123: Given Diltiazem push and started on Diltiazem drip. 21:15 Converted to NSR. Echo Normal size left ventricle. Left ventricular wall thickness mildly increased. Normal left ventricular ejection fraction estimated at 60-65%. Abnormal relaxation filling pattern of the left ventricle for age (stage 1 diastolic dysfunction). Moderate Mitral annular calcification with mild Mitral stenosis. Mild Aortic stenosis. Blood culture Positive for Pasturella Results Results: Laboratory Tests 11/13/16 0644: Anion Gap 9, Estimated GFR 54 L, BUN/Creatinine Ratio 28.0 H 11/12/161952: Anion Gap 9, Estimated GFR 54 L, BUN/Creatinine Ratio 26.0 H 11/12/16 0653: Sodium Cancelled, Potassium Cancelled, Chloride Cancelled, Carbon Dioxide Cancelled, Anion Gap Cancelled, BUN Cancelled, Creatinine Cancelled, BUN/ Creatinine Ratio Cancelled 11/12/16 0653: Anion Gap 8, Estimated GFR > 60, BUN/Creatinine Ratio 31.3 H, Phosphorus 3.0, Magnesium 1.8, Total Bilirubin 1.0, Direct Bilirubin 0.5 H, AST 26, ALT 28, Alkaline Phosphatase 74, Total Protein 5.9 L, Albumin 2.9 L, CBC w Diff NO MAN DIFF REQ, RBC 4.15 L, MCV 98.3, MCH 32.7 H, RDW 14.4, MPV 10.4, Gran % 87.9 H , Lymphocytes % 8.9 L, Monocytes % 2.9, Eosinophils % 0.2, Basophils % 0.1, Absolute Granulocytes 5.8, Absolute Lymphocytes 0.6 L, Absolute Monocytes 0.2, Absolute Eosinophils 0, Absolute Basophils 0, PUBS MCHC 33.3 11/11/16 1550: PT 19.1 H, INR 1.83 H 11/11/16 1520: Urine Color YEL, Urine Clarity CLEAR, Urine pH 6.0, Ur Specific [place] 1.015, Urine Protein NEG, Urine Ketones NEG, Urine Nitrite NEG, Urine Bilirubin NEG, Urine Urobilinogen 0.2, Ur Leukocyte Esterase NEG, Ur Microscopic EXAM NOT REQUIRED, Urine Hemoglobin NEG, Urine Glucose NEG 11/11/16 0700: Anion Gap 7, Estimated GFR > 60, BUN/Creatinine Ratio 26.7 H, CBC w Diff NO MAN DIFF REQ, RBC 3.66 L, MCV 98.5, MCH 32.6 H, RDW 14.5, MPV 10.3, Gran % 78.5 H , Lymphocytes % 11.4 L, Monocytes % 8.6, Eosinophils % 0.9, Basophils % 0.6, Absolute Granulocytes 6.4, Absolute Lymphocytes 0.9 L, Absolute Monocytes 0.7 H, Absolute Eosinophils 0.1, Absolute Basophils 0.1, PUBS MCHC 33.1 11/11/16 0130: Troponin I 0.07 11/10/16 2020: Troponin I 0.07 11/10/16 1431: Lactic Acid 2.0 11/10/16 1024: Lactic Acid Cancelled 11/10/16 1007: Anion Gap 8, Estimated GFR > 60, BUN/Creatinine Ratio 26.3 H, Glucose 120 H, Lactic Acid 2.4 H, Calcium 9.2, Total Bilirubin 2.2 H, AST 34, ALT 31, Alkaline Phosphatase 81, Troponin I 0.08, Lft-H-Ibqbossievq Pept 6060 H, Total Protein 6.0 L, Albumin 3.2 L, Globulin 2.8, Albumin/Globulin Ratio 1.1, CBC w Diff MAN DIFF ORDERED, RBC 4.22, MCV 97.0, MCH 32.7 H, RDW 13.9, MPV 9.8, Gran % 94.2 H, Lymphocytes % 2.4 L, Monocytes % 3.4, Eosinophils % 0, Basophils % 0 L, Absolute Granulocytes 19.6 H, Absolute Lymphocytes 0.5 L, Absolute Monocytes 0.7 H, Absolute Eosinophils 0, Absolute Basophils 0, Normocytic RBCs VERIFIED, Normochromic RBCs VERIFIED, PUBS MCHC 33.7 Microbiology 11/11 1539 LOWER RESP: Respiratory Culture - CAN Cancelled: SPECIMEN NOT RECEIVED IN LABORATORY 11/11 1539 LOWER RESP: Gram Stain - CAN Cancelled: SPECIMEN NOT RECEIVED IN LABORATORY 11/10 1528 URINE ROUT: Legionella Antigen - COMP 11/10 152 URINE ROUT: Streptococcus pneumoniae Antigen (M - COMP 11/10 1528 URINE ROUT: Urine Culture - COMP 11/10 1258 LOWER RESP: Respiratory Culture - CAN Cancelled: SPECIMEN NOT RECEIVED IN LABORATORY 11/10 1258 LOWER RESP: Gram Stain - CAN Cancelled: SPECIMEN NOT RECEIVED IN LABORATORY 11/10 1045 BLOOD: Blood Culture - COMP PASTEURELLA MULTOCIDA 11/10 1030 BLOOD: Blood Culture - COMP PASTEURELLA MULTOCIDA Assessment/Plan Assessment: Ms. Craig is a 76-year-old female with past medical history significant for COPD not on home oxygen, Stage I diastolic heart failure, hypertension, cirrhosis, chronic thrombocytopenia, bilateral knee replacements, and solitary lung nodule who presented to the ED with fever, productive cough, and shortnes of breath at rest. Today she presents with reduced cough, constipation, puritic area on forearms, and episodes of Afib. Problem List 1. Multifactoral Dyspnea: COPD exacerbation/CHF exacerbation/ Questionable Pneumonia 2. Gram negative bacteremia - Pasturella 3. Paroxysmal Afib 4. History of Hypertension 5. Constipation 6. Forearm erythema/puritis Plan: 1. Multifactoral Dyspnea/Cough: COPD exacerbation/CHF exacerbation/ Pneumonia * Cough resolving; Last WBC 6.7 * Increased Lasix to 40mg for leg swelling * Monitor Kidney function * Continue Symbicort * Echo showed stage 1 diastolic HF with preserved EF 2. Gram negative bacteremia * Culture positive for pasturella * Discontinue Ceftazidime * Start Bactrim 3. Paroxysmal Afib * Start Eliquis 5mg BID 4. History of Hypertension * Continue home losartan 5. Constipation * Start Senna and miralax PRN 6. Forearm erythema/puritis * Benadryl cream PRN Patient being prepped for discharged home.
--- NOTE | 2016-11-13 12:02 | Patient Discharge Instructions ---
Discharge Instructions General Discharge Information You were seen/treated for: Pneumonia Chronic Obstructive Pulmonary Syndrome Congestive Heart Failure Paroxysmal Atrial Fibrillation You had these procedures: Echocardiogram, chest/abdomen/pelvis CT scan, Watch for these problems: Shortness of breath, cough, palpitations and change in blood pressure (syncopal episode) Special Instructions: 1. Please get CBC and BEP checked 2 weeks of discharge. 2. Call licensed customs broker office in 3 weeks for a Holter monitor and a follow up visit. 3.Please follow-up with Dr. Padilla within 2 week of discharge 4. Please follow with the licensed customs broker within 1 weeks of discharge. 5. please take antibiotics as directed. Diet Recommended Diet: Heart Healthy Activity Full Activity/No Limits: Yes (as tolerated) Acute Coronary Syndrome Inclusion Criteria At DC or during hospital stay patient has or had the following: ACS DIAGNOSIS No Discharge Core Measures Meds if any: Prescribed or Continued at Discharge WON/ARB if EF <40% Yes Aspirin No Beta-Evelyn No Statin No Meds if any: NOT Prescribed or Continued at Discharge Congestive Heart Failure Inclusion Criteria At DC or during hospital stay patient has or had the following: CHF DIAGNOSIS Yes Discharge Core Measures Meds if any: Prescribed or Continued at Discharge WON/ARB for EF <40% Yes Meds if any: NOT Prescribed or Continued at Discharge Cerebrovascular accident Inclusion Criteria At DC or during hospital stay patient has or had the following: CVA/TIA Diagnosis No Discharge Core Measures Meds if any: Prescribed or Continued at Discharge Meds if any: NOT Prescribed or Continued at Discharge Venous thromboembolism Inclusion Criteria VTE Diagnosis No VTE Type NONE VTE Confirmed by (Test) NONE Discharge Core Measures - Per Current guidelines, there needs to be overlap - treatment for the first 5 days of Warfarin therapy. - If discharged on Warfarin prior to 5 days of - overlap therapy, the patient will need to be - assessed for post discharge needs including - *Post discharge parental anticoagulation - *Warfarin and/or parental anticoagulation education - *Follow up date to check INR post discharge At least 5 days overlap therapy as Inpatient No Meds if any: Prescribed or Continued at Discharge Note: Overlap Therapy is Warfarin and Anticoagulant Meds if any: NOT Prescribed or Continued at Discharge
--- NOTE | 2016-11-13 12:02 | PN- Cardiology ---
Subjective Subjective: The patient is awake, alert The events of the last 24 hours as well as telemetry were reviewed. A paroxysm of atrial fibrillation was noted throughout the night as well as a short paroxysm this a.m. The patient spontaneously converted to normal sinus rhythm and was asymptomatic for the same. Review of Systems: The review of systems is negative for chest pains, palpitations nor lightheadedness. The remainder of the 14 point review of systems is noncontributory with the exception of above. Objective Vital Signs and I&Os Vital Signs Date Time Temp Pulse Resp B/P B/P Pulse O2 O2 Flow FiO2 Mean Ox Delivery Rate 11/13 0933 76 134/70 11/13 0920 98 Room Air 11/13 0800 Room Air 11/13 0728 98.7 76 18 134/70 97 Room Air 11/12 2200 99.0 64 16 124/80 95 Room Air 11/12 2142 95 Room Air 11/12 2029 97 Room Air 11/12 1800 130 132/74 11/12 1405 95 Room Air Intake & Output 11/13 1600 11/13 0000 11/12 1600 11/13 0700 11/12 0000 Intake Total 377 741 0378 850 995 Output Total 850 600 725 700 Balance -750 -480 1080 125 295 Intake, IV 100 600 600 395 Intake, Oral 120 480 250 600 Output, Urine 850 600 725 700 Patient 279 lb 274 lb Weight Weight Chair scale Chair scale Measurement Method Physical Exam: General: Nontoxic, no apparent distress. HEENT: Sclera and conjunctiva within normal limits, without xanthelasmas. Neck: Carotids 2+ without bruits. Respiratory: Scattered rhonchi, air movement is good, without accessory respiratory muscle use. Heart: Regular rate and rhythm, without murmurs, without JVD. Abdomen: Soft, nontender, no masses, normoactive bowel sounds. Extremities: Without clubbing, cyanosis, without edema. Neuro: Nonfocal exam, strength, 5 out of 5 Skin: Within normal limits without lesions. Psych: Mood and affect: Normal Current Medications: Current Medications Sig/Estephania Start time Last Medication Dose Route Stop Time Status Admin Acetaminophen 650 MG .STK-MED ONE 11/13 0032 DC PO 11/13 0033 Acetaminophen 650 MG Q6P PRN 11/10 1300 AC 11/13 PO 0033 Albuterol Sulfate 3 ML Q4P PRN 11/10 2230 DC INH Apixaban 5 MG BID 11/13 1000 AC 11/13 PO 1116 Budesonide/ 2 PUF BID 11/10 1256 AC 11/13 Formoterol Fumarate INH 0931 Ceftazidime 1,000 MG IQ8 11/11 1600 DC 11/13 IV 0814 Diltiazem HCl 125 MG Q8H 11/12 2000 DC 11/12 Sodium Chloride 100 ML IV 2103 Diltiazem HCl 5 MG ONCE ONE 11/12 1945 DC IV PUSH 11/12 1946 Diphenhydramine HCl 1 TARIK TID PRN 11/13 0800 AC 11/13 TOP 0934 Enoxaparin Sodium 40 MG DAILY 11/10 1254 DC 11/12 SC 0934 Furosemide 40 MG DAILY 11/13 1000 AC 11/13 PO 1116 Furosemide 20 MG DAILY 11/12 1129 DC 11/13 PO 0933 Ibuprofen 600 MG Q6P PRN 11/10 1300 AC PO Losartan Potassium 100 MG DAILY 11/10 1256 AC 11/13 PO 0933 Magnesium Sulfate 1 GM ONCE ONE 11/13 0800 DC 11/13 Dextrose/Water 100 ML IV 11/13 1159 1026 Magnesium Sulfate 1 GM ONCE ONE 11/12 2200 DC 11/13 Dextrose/Water 100 ML IV 11/13 0159 0032 Oxycodone/ 2 TAB Q6P PRN 11/10 1300 AC Acetaminophen PO Patient Medication 1 ED .STK-MED ONE 11/12 1409 VT Teaching ED 11/12 1410 Polyethylene Glycol 17 GM DAILY 11/13 1000 AC 11/13 PO 0934 Prednisone 30 MG DAILY 11/12 1000 DC PO Senna 187 MG AT BEDTIME PRN 11/13 2200 AC PO Sodium Chloride 1,000 ML Q13H 11/11 1500 DC 11/11 IV 1559 Trimethoprim/ 1 TAB BID 11/13 2200 AC Sulfamethoxazole PO Results Last 48 Hrs of Labs/Mics: Laboratory Tests 11/13/16 0644: Anion Gap 9, Estimated GFR 54 L, BUN/Creatinine Ratio 28.0 H 11/12/163: Anion Gap 9, Estimated GFR 54 L, BUN/Creatinine Ratio 26.0 H 11/12/16 0653: Sodium Cancelled, Potassium Cancelled, Chloride Cancelled, Carbon Dioxide Cancelled, Anion Gap Cancelled, BUN Cancelled, Creatinine Cancelled, BUN/ Creatinine Ratio Cancelled 11/12/16 0653: Anion Gap 8, Estimated GFR > 60, BUN/Creatinine Ratio 31.3 H, Phosphorus 3.0, Magnesium 1.8, Total Bilirubin 1.0, Direct Bilirubin 0.5 H, AST 26, ALT 28, Alkaline Phosphatase 74, Total Protein 5.9 L, Albumin 2.9 L, CBC w Diff NO MAN DIFF REQ, RBC 4.15 L, MCV 98.3, MCH 32.7 H, RDW 14.4, MPV 10.4, Gran % 87.9 H , Lymphocytes % 8.9 L, Monocytes % 2.9, Eosinophils % 0.2, Basophils % 0.1, Absolute Granulocytes 5.8, Absolute Lymphocytes 0.6 L, Absolute Monocytes 0.2, Absolute Eosinophils 0, Absolute Basophils 0, PUBS MCHC 33.3 11/11/16 1550: PT 19.1 H, INR 1.83 H 11/11/16 1520: Urine Color YEL, Urine Clarity CLEAR, Urine pH 6.0, Ur Specific [place] 1.015, Urine Protein NEG, Urine Ketones NEG, Urine Nitrite NEG, Urine Bilirubin NEG, Urine Urobilinogen 0.2, Ur Leukocyte Esterase NEG, Ur Microscopic EXAM NOT REQUIRED, Urine Hemoglobin NEG, Urine Glucose NEG Assessment/Plan Assessment/Plan 76-year-old female with past medical history significant for COPD not on home oxygen, stage I diastolic congestive heart failure on Lasix as needed, bilateral leg swelling, hypertension, history of cirrhosis, bilateral knee replacements, heparin-induced thrombocytopenia, solitary lung nodule, history of smoking presented to emergency department with chief complaint of fevers and a productive cough. On arrival, she was noted to have an elevated white blood cell count (20.8), as well as an elevated BNP level (6060), and a chest x-ray consistent with congestive heart failure. Dyspnea: Likely multifactorial including a COPD exacerbation, infection as well as acute on chronic congestive heart failure secondary to diastolic dysfunction. An echocardiogram performed in August of this year demonstrated an LVEF of 55% with mild diastolic dysfunction, and no significant valvular abnormalities. Appreciate pulmonary input, and we will continue current regimen of antibiotics and treatment of underlying COPD as per pulmonary. Given the diastolic congestive heart failure, we would attempt to maintain a euvolemic state. Paroxysmal atrial fibrillation: Noted in the setting of acute respiratory issues; however, the patient has an elevated [id number] score, and would benefit from full anticoagulation. We will start eliquis at 5 mg by mouth twice a day. Continue telemetry? Yes
[2016-11-13 15:22] VITALS: BP 112/70
--- NOTE | 2016-11-13 16:35 | Discharge Summary ---
Visit Information Visit Dates Admission Date: 11/10/16 Discharge Date: 11/14/16 Hospital Course Course Attending Physician: JACKIE STUART MD Primary Care Physician: RISHI BARNES MD Hospital Course: The patient is a 76-year-old female with past medical history significant for COPD not on home oxygen, stage I diastolic congestive heart failure on Lasix as needed, bilateral leg swelling, hypertension, history of cirrhosis, bilateral knee replacements, heparin-induced thrombocytopenia, solitary lung nodule, history of smoking presented to emergency department with chief complaint of fever, productive cough and shortness of breath at rest. She reported symptoms of an upper respiratory infection for one week and noted exposure to sick contacts. She denies history of travel. The day before her presentation to the ED she noticed production of yellow colored sputum and noted that she had a fever. She tried relief with inhalers or shortness of breath but only had minimal relief. She denied chest pain but admitted to orthopnea and bilateral edema lower extremities. She has been diagnosed with diastolic heart failure and takes 40 mg Lasix when necessary for the edema. She says that she usually takes Lasix once in 3 days. Patient denies any headache, weakness, sensory changes, tingling or numbness, nausea, vomiting, abdominal pain, change in bladder or bowel habits. Patient has a smoking history of one pack per day for 40 years, she quit smoking 10 years ago. She uses aclidinium and Symbicort inhalers at home. She has Numerous bilateral pulmonary nodules measuring up to 6 mm, unchanged since 2011, from last CAT scan December 2015 with no new or enlarging nodules identified. Echocardiogram in August 2016 showed ejection fraction 55% in stage I diastolic heart failure. She follows Dr. Barnes primary care doctor. She has not seen a monotype mechanic in the last 3 months. Her vitals on admission were temperature 100.9, heart rate 100, respiratory rate 18, blood pressure 140/70, saturating at 94 on room air. Leukocytosis 21,000, H &H normal, low platelets 118, BEP normal, Liver function tests normal. X-ray showed Enlarged cardiac silhouette, pulmonary venous redistribution and small left pleural effusion. Findings are suggestive of CHF. No evidence of pneumonia. EKG-sinus rhythm, heart rate 78, normal axis, QTC 502, no acute ST-T wave changes. Patient was transferred to telemetry for monitoring of acute on chronic CHF with possible COPD exacerbation and possible infection as the causes for her likely multifactorial dyspnea. Pneumonia : Patient had clinical symptoms, but we were unable to isolate an infectious lung source. CT abdomen and chest showed no infective source. Culture was negative after 4 days urine Legionella and strep antigens were also negative. Sputum cultures were not able to be obtained. Ceftazidime stopped, azithromycin and ceftriaxone were stopped. Blood culture was positive for Pasteurella multocida and Augmentin was started. Patient recounted that she was bit by a cat on her left hand about a week back. With antibiotics her white blood cell count decreased from 20.8 to 6.8 Possible COPD exacerbation : Patient received total respiratory care and duo nebs. She was started on steroids but as lungs cleared clinically steroids were turned off. We kept her O2 sats above 90% with nasal cannula. Acute on chronic CHF: Patient presented with worsening shortness of breath. ProBNP elevated on admission 6060. Chest x-ray findings suggestive of cardiomegaly. Patient was started on 20 mg of Lasix on admission. Patient was still experiencing orthopnea, some shortness of breath, and edema and her weight had increased by 9 pounds since admission on the fourth day of her stay so we decided to increase her Lasix to 40 mg. Her chest sounded better with only some crackles. We kept her net intake and output negative and her blood pressures were always within normal limits. Her creatinine was normal at 1.0 and we increased her potassium from 3.3 to 3.9 with kdur. Paroxysmal A. fib: Patient converted to A. fib during her stay and then back to normal sinus rhythm after being dosed Cardizem. As per cardiology Dr. Jones, we started Eliquis 5 mg twice a day. We also added on metoprolol succinate 25 mg once a day for rate control. He wanted to set her up with labs including BEP and CBCs in 2 weeks plus a Holter monitor in 3 weeks and an office follow-up with Dr. Jones in 4 weeks. He also started her on alternating doses of 40 mg and 20 mg Lasix with a K-Tab 10 mg a day and magnesium oxide 400 mg a day on discharge. Arm irritation : Patient has history of heparin-induced thrombocytopenia which has led to ecchymoses on her bilateral arms which she itches causing erythema and excoriations. We gave her Benadryl to decrease the itching. Allergies: Coded Allergies: meclizine (RASH 08/08/16) Disposition Summary Disposition Principal Diagnosis: Congestive heart failure Additional Diagnosis: COPD Pneumonia Paroxysmal A. fib Hypertension Discharge Disposition: home or self care Discharge Instructions General Discharge Information Code Status: Full Code Patient's Diet: heart healthy Patient's Activity: as tolerated Follow-Up Instructions/Appts: please follow up with your doctor in one week and continue to take your full dose of antibiotics AUGMENTIN Medications at Discharge Discharge Medications: Continue taking these medications: Furosemide (Furosemide) 40 MG TABLET 1 Tablet ORAL Qty = 30 Instructions: TAKE 40 MG EVERY ALTERNATE DAY( 40 MG ONE DAY, FOLLOWED BY 20 MG THE NEXT DAY) Comments: Last Taken: 11/14/16 Time: 9AM Losartan Potassium (Losartan Potassium) 100 MG TABLET 1 Tablet ORAL DAILY Qty = 90 Comments: Last Taken: 11/14/16 Time: 9AM Cholecalciferol (Vitamin D3) (Vitamin D3) 1,000 UNIT CAPSULE 2 Capsule ORAL EVERY 48 HOURS (Every 2 days) Comments: NOT GIVEN IN HOSPITAL Aclidinium [place] (Tudorza Pressair) 400 MCG/ACTUATION AER.POW.BA 2 PUFF DAILY Qty = 1 Comments: NOT GIVEN IN HOSPITAL Budesonide/Formoterol Fumarate (Symbicort 160-4.5 Mcg Inhaler) 160 MCG-4.5 MCG/ ACTUATION HFA.AER.AD 2 PUFF TWICE DAILY Comments: Last Taken: 11/14/16 Time: 9AM Start taking the following new medications: Amoxicillin/Potassium Clav (Augmentin 875-125 Tablet) 875 MG-125 MG TABLET 1 Tablet ORAL TWICE DAILY Qty = 10 No Refills Instructions: . Comments: Last Taken: 11/14/16 Time: 9AM Apixaban (Eliquis) 5 MG TABLET 1 Tablet ORAL TWICE DAILY Qty = 60 No Refills Instructions: . Comments: Last Taken: 11/14/16 Time: 9AM Potassium Chloride (K-Tab ER) 10 MEQ TABLET.ER 1 Tablet ORAL DAILY Qty = 30 No Refills Instructions: . Comments: NOT GIVEN IN HOSPITAL Magnesium Oxide (Magnesium Oxide) 400 MG TABLET 1 Tablet ORAL DAILY Qty = 30 No Refills Instructions: . Comments: NOT GIVEN IN HOSPITAL Furosemide (Lasix) 20 MG TABLET 1 Tablet ORAL DAILY Qty = 30 No Refills Instructions: .TAKE 20 MG EVERY OTHER DAY( ONE DAY 20 MG, ONE DAY 40 MG) Comments: Last Taken: 11/14/16 Time: 9AM PT GIVEN 20MG Copies To: FRANDY GARCIA,MARIANA Joe; MOLLY GARCIA,RISHI Robles; NARCISO GARCIA,JACKIE Attending MD Review Statement Documenting Attending: JACKIE STUART MD
--- NOTE | 2016-11-13 21:07 | PN- Pulmonary ---
Subjective HPI/Critical Care Issues: Today Ms. Cowan says she is feling alright. She states her cough has remained unchanged for since yesterday but improved since admission. Patient is also complaining of itchiness on her forearms which she said is chronic and due to her liver cirrhosis. Patient also stated she has not had a proper bowel movement for a few days. Patient denies any pain. After informing patient of pasturella positive blood culture she did note a cat bite that broke the skin on her right hand 3 days before presenting to the ED. Objective Current Medications: Current Medications Sig/Estephania Start time Last Medication Dose Route Stop Time Status Admin Acetaminophen 650 MG .STK-MED ONE 11/13 0032 DC PO 11/13 0033 Acetaminophen 650 MG Q6P PRN 11/10 1300 AC 11/13 PO 0033 Albuterol Sulfate 3 ML Q4P PRN 11/10 2230 DC INH Amoxicillin/ 875 MG Q12 11/13 2200 AC Clavulanate Potassium PO Apixaban 5 MG BID 11/13 1000 AC 11/13 PO 1116 Budesonide/ 2 PUF BID 11/10 1256 AC 11/13 Formoterol Fumarate INH 0931 Ceftazidime 1,000 MG IQ8 11/11 1600 DC 11/13 IV 0814 Diltiazem HCl 125 MG Q8H 11/12 2000 DC 11/12 Sodium Chloride 100 ML IV 2103 Diphenhydramine HCl 1 TARIK TID PRN 11/13 0800 AC 11/13 TOP 0934 Enoxaparin Sodium 40 MG DAILY 11/10 1254 DC 11/12 SC 0934 Furosemide 40 MG DAILY 11/13 1000 AC 11/13 PO 1116 Furosemide 20 MG DAILY 11/12 1129 DC 11/13 PO 0933 Ibuprofen 600 MG Q6P PRN 11/10 1300 AC PO Losartan Potassium 100 MG DAILY 11/10 1256 AC 11/13 PO 0933 Magnesium Sulfate 1 GM ONCE ONE 11/13 0800 DC 11/13 Dextrose/Water 100 ML IV 11/13 1159 1026 Magnesium Sulfate 1 GM ONCE ONE 11/12 2200 DC 11/13 Dextrose/Water 100 ML IV 11/13 0159 0032 Oxycodone/ 2 TAB Q6P PRN 11/10 1300 AC Acetaminophen PO Polyethylene Glycol 17 GM DAILY 11/13 1000 AC 11/13 PO 0934 Potassium Chloride 40 MEQ ONCE ONE 11/13 1500 DC 11/13 PO 11/13 1501 1636 Senna 187 MG AT BEDTIME PRN 11/13 2199 AC PO Trimethoprim/ 1 TAB BID 11/13 2199 CAN Sulfamethoxazole PO Vital Signs & I&O Last 24 Hrs of Vitals and I&O: Vital Signs Date Time Temp Pulse Resp B/P B/P Pulse O2 O2 Flow FiO2 Mean Ox Delivery Rate 11/13 1522 98.4 86 18 112/70 97 Room Air 11/13 0933 76 134/70 11/13 0920 98 Room Air 11/13 0800 Room Air 11/13 0728 98.7 76 18 134/70 97 Room Air 11/12 2200 99.0 64 16 124/80 95 Room Air 11/12 2142 95 Room Air Intake & Output 11/13 1600 11/13 0800 11/13 0000 Intake Total 730 100 120 Output Total 550 850 600 Balance 180 -750 -480 Intake, IV 130 100 Intake, Oral 600 120 Number 1 Bowel Movements Output, Urine 550 850 600 Patient 279 lb Weight Weight Chair scale Measurement Method Impression/Plan Impression/Plan Impression/Plan: PATIENT: WANDA COWAN PRESENT AGE: 76 PATIENT ACCOUNT NO: [id number] : 40 LOCATION: 1NO ORDERING PHYSICIAN: CHRISTIANNE TELLEZ MD SERVICE DATE: 11/11/16- EXAM TYPE: CAT - CT ABD & PELVIS W IV CONTRAST; CT CHEST W IV CONTRAST EXAMINATION: CT CHEST WITH CONTRAST CLINICAL INFORMATION: Cough and shortness of breath. COMPARISON: Chest CT 12/11/2015. TECHNIQUE: Multidetector volumetric CT imaging of the chest was obtained after the administration of 95 mL of Optiray 320 intravenous contrast without immediate adverse reactions. Axial MIP volume rendering provided. Sagittal and coronal reformatted images were obtained. DLP: 1636 mGy-cm FINDINGS: LUNGS: Clear, free of infiltrate or airspace disease. No new or suspicious-appearing pulmonary nodules to suggest a primary malignancy or metastatic disease. Scattered 7 mm and under pulmonary nodules bilaterally appear unchanged back to 09/14/2011 likely incidental. MEDIASTINUM: No lower cervical, mediastinal, or hilar lymphadenopathy is identified. There is moderate atherosclerotic arterial calcifications. Aorta is nonaneurysmal. Pulmonary arteries nondilated. PLEURA: There is no pleural effusion. No pleural mass or thickening. AXILLA: There are scattered small axillary lymph nodes, the largest superiorly in the right axilla, the largest measuring 12 mm short axis dimension image 12 of series 2, unchanged back to 09/23/2011. LIVER AND SPLEEN: Liver appears mildly heterogeneous with a subtle nodular contour without focal lesions. There is recanalization of the periumbilical vein. Does the patient have a history of cirrhosis? Laboratory correlation recommended including hepatitis panel. Spleen is upper limits of normal at 11 cm. PANCREAS GALLBLADDER AND BILIARY TREE: Pancreas and biliary tree appear unremarkable in this postcholecystectomy patient. KIDNEYS, URETERS, AND ADRENALS: There is a 1.8 cm cyst in the upper pole of the right kidney largely unchanged back to 2012 exam. URINARY BLADDER: Partially fluid-filled and unremarkable. GI TRACT: Scattered left-sided colonic diverticula without evidence of diverticulitis. Appendix appears unremarkable. Small bowel loops nondilated. Stomach and duodenum normal positions. PERITONEAL CAVITY: There is no intraperitoneal free fluid identified. No focal masses or free air. RETROPERITONEUM: There is a dilated varix extending from an attenuation junction of the superior mesenteric vein and portal vein extending caudally into the retroperitoneum and eventually draining into the inferior vena cava suggesting portal venous hypertension. Main portal vein measures 1.8 cm. PELVIC ORGANS: Urinary bladder partially distended, uterus is not visualized. Adnexa regions unremarkable. OSSEOUS STRUCTURES: No aggressive osseous lesions. ANTERIOR ABDOMINAL WALL AND SOFT TISSUES: No hernia is identified. IMPRESSION: 1. No acute process is identified. 2. Stable-appearing nonspecific pulmonary nodules. 3. Findings suggesting cirrhosis and portal hypertension. Clinical and laboratory correlation recommended. 4. Colonic diverticulosis, no evidence of diverticulitis. 5. Postsurgical changes as noted. DICTATED BY: PARVEEN DAVIS MD DATE/TIME DICTATED:11/11/161715 HEENT: Normal EENT exam, head normocephalic, moist mucous membranes Pupils equally round and reactive to light. Neck: Supple, no lymphadenopathy Back: Normal inspection Cardiovascular: Regular rate and rhythm with no murmurs, rubs, or gallops. No carotid bruits or JVD Abdomen: Soft, nontender, and nondistended. Organomegaly appreciated. Normoactive bowel sounds Extremity: Bilateral, nonpitting lower extremity edema with no overlying erythema, no calf tenderness to palpation, normal and equal pulses. Capillary refill less than 2 seconds Neuro: Alert oriented x3, cranial nerves II through XII grossly intact. Skin: Redness with eccymosis in the forearm, skin is warm and dry. 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, hypertension, chronic liver disease, Influenza in august of this year with history of mild heart failure with preserved ef, vitamin D deficiency, chronic venous insufficiency and chronic pedal edema, degenerative joint disease, Chronic thrombocytopenia now comes in with * Pasturella sepsis due to cat bite vs scartch, pt does have a small superficial bite evelia on her arm - had a cat bite / nibble 3 days prior * COPD mod with no sig wheezig, prob recent bronchitis prior to coming here * Significantly elevated proBNP with chest x-ray suggestive of congestive heart failure, with heart failure with preserved ef * Pafib now on anticoag started per cardio - please note that her INR is high due to cirrhosis * 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
[2016-11-13 23:08] VITALS: BP 124/72
[2016-11-14 07:41] VITALS: BP 138/78
[2016-11-14 09:10] VITALS: BP 138/78
--- NOTE | 2016-11-14 09:12 | PN- Cardiology ---
Subjective Subjective: Telemetry reviewed. Sinus rhythm throughout. Patient feels better. Just a residual cough breathing is much better. Ready to go home today Objective Vital Signs and I&Os Vital Signs Date Time Temp Pulse Resp B/P B/P Pulse O2 O2 Flow FiO2 Mean Ox Delivery Rate 11/14 0741 98.4 81 18 138/78 97 Room Air 11/13 2308 98.2 84 18 124/72 98 Room Air 11/13 2255 Room Air 11/13 1522 98.4 86 18 112/70 97 Room Air 11/13 0933 76 134/70 11/13 0920 98 Room Air Intake & Output 11/14 1600 11/14 0800 11/14 0000 11/13 1600 11/13 0800 11/13 0000 Intake Total 450 830 730 100 120 Output Total 1350 750 550 850 600 Balance -900 80 180 -750 -480 Intake, IV 130 100 Intake, Oral 450 830 600 120 Number 1 Bowel Movements Output, Urine 1350 750 550 850 600 Patient 276 lb 279 lb Weight Weight Chair scale Chair scale Measurement Method Physical Exam: Gen. exam patient comfortable laying in bed Head normocephalic atraumatic Eyes sclera anicteric conjunctiva showed no pallor extraocular muscles were normal Neck no definite jugular venous distention no thyroid masses no bruits no palpable nodes Chest lungs were clear bilaterally Heart regular rhythm grade 1 to 2/6 systolic murmur in the lower left sternal border and aortic area Abdomen soft protuberant bowel sounds normal Extremities no clubbing cyanosis, brawny induration probably venous stasis and 1 + edema bilaterally Neurological no gross motor or sensory deficits Current Medications: Current Medications Sig/Estephania Start time Last Medication Dose Route Stop Time Status Admin Acetaminophen 650 MG Q6P PRN 11/10 1300 AC 11/13 PO 0033 Albuterol Sulfate 3 ML Q4P PRN 11/10 2230 DC INH Amoxicillin/ 875 MG Q12 11/13 2200 AC 11/13 Clavulanate Potassium PO 2058 Apixaban 5 MG BID 11/13 1000 AC 11/13 PO 2058 Budesonide/ 2 PUF BID 11/10 1256 AC 11/13 Formoterol Fumarate INH 2058 Ceftazidime 1,000 MG IQ8 10 1600 DC 11/13 IV 0814 Diphenhydramine HCl 1 TARIK TID PRN 11/13 0800 AC 11/13 TOP 0934 Enoxaparin Sodium 40 MG DAILY 11/10 1254 DC 11/12 SC 0934 Furosemide 40 MG DAILY 11/13 1000 AC 11/13 PO 1116 Furosemide 20 MG DAILY 11/12 1129 DC 11/13 PO 0933 Ibuprofen 600 MG Q6P PRN 11/10 1300 AC PO Losartan Potassium 100 MG DAILY 11/10 1256 AC 11/13 PO 0933 Magnesium Sulfate 1 GM ONCE ONE 11/13 0800 DC 11/13 Dextrose/Water 100 ML IV 11/13 1159 1026 Oxycodone/ 2 TAB Q6P PRN 11/10 1300 AC Acetaminophen PO Polyethylene Glycol 17 GM DAILY 11/13 1000 AC 11/13 PO 0934 Potassium Chloride 40 MEQ ONCE ONE 11/13 1500 DC 11/13 PO 11/13 1501 1636 Senna 187 MG AT BEDTIME PRN 11/13 2200 AC 11/13 PO 2210 Senna/Docusate Sodium 1 TAB .STK-MED ONE 11/13 2210 DC PO 11/13 2211 Trimethoprim/ 1 TAB BID 11/13 2200 CAN Sulfamethoxazole PO Results Last 48 Hrs of Labs/Mics: Laboratory Tests 11/13/16 0644: Anion Gap 9, Estimated GFR 54 L, BUN/Creatinine Ratio 28.0 H 11/12/16 1953: Anion Gap 9, Estimated GFR 54 L, BUN/Creatinine Ratio 26.0 H Assessment/Plan Assessment/Plan In summary this 76-year-old female has the following problems #1. Probably acute diastolic congestive heart failure now improved by stable saturations. Underlying left ventricle hypertrophy, mild aortic stenosis and mild mitral stenosis. #2. Possible pneumonia being treated with antibiotics #3. Paroxysmal atrial fibrillation. She is on Elliquis 5 mg twice a day. I would start her on metoprolol succinate 25 mg once a day. She is mild mitral stenosis and high chads Vascor is also high both of which contribution to increased thrombogenic status. I would set up labs including electrolytes BUN/ creatinine and creatinine and CBCs in 2 weeks and a Holter recording in the office in 3 weeks and therefore follow-up in 4 weeks. I would also increase her furosemide to 40 mg alternating with 20 mg a day, add K-Tab 10 mg a day and add magnesium oxide 400 mg a day #4. Hypertension #5. Portal hypertension and cirrhosis. Continue telemetry? Yes
--- NOTE | 2016-11-14 09:57 | PN- Student ---
Subjective Subjective: Today Ms. Craig says she is feeling the same. Her cough is unchanged from yesterday but improved from admission. Patient says the itchiness on her forearms has improved with use of the benadryl cream. She states that she was able to get up and walk around her room last night without significant shortness of breath. Patient denies any pain at this time. Objective Objective: Vitals T: 98.4, P 81, RR 18, BP 138/78, O2 Sat 97% on room air. Tele Events since last night Patient is in normal sinue rhythm with bundle branch block and PVC's rate 66-73. No events Physical Exam General: Patient is sitting comfortable on side of bed in no acute distress. CV: Normal S1 S2. No murmurs, rubs, or gallops. Lungs: Clear to auscultation posteriorly bilaterally Extremities: Bilateral nonpitting pedal edema, sattered ecchymosis on forearms, scabbed linear bite evelia from previous cat bite on left hand, erythema bilaterally on forearms. Results Results: Laboratory Tests 11/13/16 0644: Anion Gap 9, Estimated GFR 54 L, BUN/Creatinine Ratio 28.0 H 11/12/16 1953: Anion Gap 9, Estimated GFR 54 L, BUN/Creatinine Ratio 26.0 H 11/12/16 0653: Sodium Cancelled, Potassium Cancelled, Chloride Cancelled, Carbon Dioxide Cancelled, Anion Gap Cancelled, BUN Cancelled, Creatinine Cancelled, BUN/ Creatinine Ratio Cancelled 11/12/16 0653: Anion Gap 8, Estimated GFR > 60, BUN/Creatinine Ratio 31.3 H, Phosphorus 3.0, Magnesium 1.8, Total Bilirubin 1.0, Direct Bilirubin 0.5 H, AST 26, ALT 28, Alkaline Phosphatase 74, Total Protein 5.9 L, Albumin 2.9 L, CBC w Diff NO MAN DIFF REQ, RBC 4.15 L, MCV 98.3, MCH 32.7 H, RDW 14.4, MPV 10.4, Gran % 87.9 H , Lymphocytes % 8.9 L, Monocytes % 2.9, Eosinophils % 0.2, Basophils % 0.1, Absolute Granulocytes 5.8, Absolute Lymphocytes 0.6 L, Absolute Monocytes 0.2, Absolute Eosinophils 0, Absolute Basophils 0, PUBS MCHC 33.3 11/11/16 1550: PT 19.1 H, INR 1.83 H 11/11/16 1520: Urine Color YEL, Urine Clarity CLEAR, Urine pH 6.0, Ur Specific Garibaldi 1.015, Urine Protein NEG, Urine Ketones NEG, Urine Nitrite NEG, Urine Bilirubin NEG, Urine Urobilinogen 0.2, Ur Leukocyte Esterase NEG, Ur Microscopic EXAM NOT REQUIRED, Urine Hemoglobin NEG, Urine Glucose NEG Microbiology 11/11 153 LOWER RESP: Respiratory Culture - CAN Cancelled: SPECIMEN NOT RECEIVED IN LABORATORY 11/11 1538 LOWER RESP: Gram Stain - CAN Cancelled: SPECIMEN NOT RECEIVED IN LABORATORY Assessment/Plan Assessment: Ms. Craig is a 76-year-old female with past medical history significant for COPD not on home oxygen, Stage I diastolic heart failure, hypertension, cirrhosis, chronic thrombocytopenia, bilateral knee replacements, and solitary lung nodule who presented to the ED with fever, productive cough, and shortnes of breath at rest. Today she presents with reduced cough, constipation, puritic area on forearms, and episodes of Afib. Problem List 1. Multifactoral Dyspnea: COPD exacerbation/CHF exacerbation/ Questionable Pneumonia 2. Gram negative bacteremia - Pasturella 3. Paroxysmal Afib 4. History of Hypertension 5. Forearm erythema/puritis Plan: 1. Multifactoral Dyspnea/Cough: COPD exacerbation/CHF exacerbation/ Pneumonia * Cough resolving; Last WBC 6.7 * Dyspnea is minimal. Normal to patients baseline with COPD. * Continue home Symbicort * Cardiology recommendation -Furosemide 40mg alternating with 20mg a day -Add Potassium tablet 10mg a day -Add Magnesium oxide 400mg a day 2. Gram negative bacteremia * Culture positive for pasturella * Contine Augmentin 3. Paroxysmal Afib * Currently in normal sinus rhythm * Continue Eliquis 5mg BID * Recommendation from [employer] -Metoprolol succinate 25mg once a day 4. History of Hypertension * Continue home losartan 5. Forearm erythema/puritis * Benadryl cream PRN Patient being prepped for discharge home today. * Benadryl cream PRN Patient being prepped for discharged home.
--- NOTE | 2016-11-14 10:21 | PN- Housestaff ---
GEOFF GARCIA,CHRISTIANNE 11/14/16 0940: Subjective Follow-up For: 1. Acute on chronic CHF 2. Pneumonia 3. COPD exacerbation 4. Hypertension 5. Paroxysmal afib Complaints: no complaints Tele-Events Since Last Visit: Patient is in normal sinus rhythm with bundle branch block and PVCs rate 66-73, no events Subjective: Patient has no complaints overnight. Still has some shortness of breath but notes that it is better. Notes that she has less orthopnea and swelling. Denies headache chest pain cough. Review of Systems Constitutional: Reports: no symptoms. EENTM: Reports: no symptoms. Cardiovascular: Reports: edema (much less than before.), orthopena. Respiratory: Reports: orthopnea, short of breath. Gastrointestinal: Reports: constipation. Denies: diarrhea. Genitourinary: Reports: no symptoms. Musculoskeletal: Reports: no symptoms. Skin: Reports: no symptoms. Neurological/Psychological: Reports: no symptoms. Hematologic/Endocrine: Reports: no symptoms. Immunologic/Allergic: Reports: no symptoms. Objective Last 24 Hrs of Vital Signs/I&O Vital Signs Date Time Temp Pulse Resp B/P B/P Pulse O2 O2 Flow FiO2 Mean Ox Delivery Rate 11/14 0910 81 138/78 11/14 0800 Room Air 11/14 0741 98.4 81 18 138/78 97 Room Air 11/13 2308 98.2 84 18 124/72 98 Room Air 11/13 2255 Room Air 11/13 1522 98.4 86 18 112/70 97 Room Air Intake & Output 11/14 1600 11/14 0800 11/14 0000 Intake Total 450 830 Output Total 1350 750 Balance -900 80 Intake, Oral 450 830 Output, Urine 1350 750 Patient 276 lb Weight Weight Chair scale Measurement Method Physical Exam General Appearance: Alert, Oriented X3, Cooperative, No Acute Distress Skin: patient has bilateral arm erythema, itchiness, ecchymoses (.) Skin Temp/Moisture Exam: Warm/Dry Sepsis Skin Exam (color): Normal for Ethnicity HEENT: Atraumatic, PERRLA, EOMI, Mucous Membr. moist/pink Neck: Supple, No JVD, No thryomegaly Cardiovascular: Regular Rate, Normal S1, Normal S2, No Murmurs, Gallops, Rubs Lungs: Clear to Auscultation, Normal Air Movement Abdomen: Normal Bowel Sounds, Soft, No Tenderness, No Hepatospenomegaly, No Masses Neurological: Normal Speech Extremities: No Clubbing, No Cyanosis, Normal Pulses, edema bilaterally nonpitting lower extremities, arm erythema and scattered ecchymoses, patient has history of heparin-induced thrombocytopenia Vascular: Normal Pulses Sepsis Peripheral Pulse Location: Radial Sepsis Peripheral Pulse Exam: Normal Current Medications: Current Medications Sig/Estephania Start time Last Medication Dose Route Stop Time Status Admin Acetaminophen 650 MG Q6P PRN 11/10 1300 AC 11/13 PO 0033 Albuterol Sulfate 3 ML Q4P PRN 11/10 2230 DC INH Amoxicillin/ 875 MG Q12 11/13 2200 AC 11/14 Clavulanate Potassium PO 0910 Apixaban 5 MG BID 11/13 1000 AC 11/14 PO 0910 Budesonide/ 2 PUF BID 11/10 1256 AC 11/14 Formoterol Fumarate INH 0911 Ceftazidime 1,000 MG IQ8 11/11 1600 DC 11/13 IV 0814 Diphenhydramine HCl 1 TARIK TID PRN 11/13 0800 AC 11/13 TOP 0934 Furosemide 40 MG DAILY 11/13 1000 AC 11/14 PO 0910 Furosemide 20 MG DAILY 11/12 1129 DC 11/13 PO 0933 Ibuprofen 600 MG Q6P PRN 11/10 1300 AC PO Losartan Potassium 100 MG DAILY 11/10 1256 AC 11/14 PO 0910 Magnesium Sulfate 1 GM ONCE ONE 11/13 0800 DC 11/13 Dextrose/Water 100 ML IV 11/13 1159 1026 Oxycodone/ 2 TAB Q6P PRN 11/10 1300 AC Acetaminophen PO Polyethylene Glycol 17 GM DAILY 11/13 1000 AC 11/14 PO 0911 Potassium Chloride 40 MEQ ONCE ONE 11/13 1500 DC 11/13 PO 11/13 1501 1636 Senna 187 MG AT BEDTIME PRN 11/13 2200 AC 11/13 PO 2210 Senna/Docusate Sodium 1 TAB .STK-MED ONE 11/13 221 DC PO 11/13 221 Trimethoprim/ 1 TAB BID 11/13 2200 CAN Sulfamethoxazole PO Assessment/Plan Assessment: Assessment 76-year-old female with past medical history significant for COPD not on home oxygen, stage I diastolic congestive heart failure on Lasix as needed, bilateral leg swelling, hypertension, history of cirrhosis, bilateral knee replacements, heparin-induced thrombocytopenia, solitary lung nodule, history of smoking presented to emergency department with chief complaint of fever, productive cough and shortness of breath at rest. Temperature on admission was 100.9, all other vitals within normal limits. She was found to have leukocytosis to 21, 000. BEP and liver function test normal. Chest x-ray shows no evidence of pneumonia. Echocardiogram in August 2016 showed ejection fraction 55% in stage I diastolic heart failure. She follows Dr. Pearce primary care doctor. She has not been following any color consultant for 3 months. Echocardiogram from November 11 shows normal left ventricular systolic function with mild concentric hypertrophy and moderate mitral annular calcification (mitral stenosis). Gram-negative rods in the November 10 blood culture now positive for Pasteurella multocida, sensitivities to follow. Patient is currently on Augmentin 875 mg twice a day. Two nights ago patient converted to A. fib and then back to normal sinus rhythm after being dosed Cardizem. Currently she is in normal sinus rhythm. PLAN Her dyspnea is likely multifactorial including COPD exacerbation, infection, acute on chronic diastolic congestive heart failure. Pneumonia : Patient has symptoms, we are unable to isolate infectious lung source. Patient fulfilled SIRS criteria on admission. * She was admitted to telemetry floor for further management of pneumonia * Blood culture was positive for Pasteurella multocida and Augmentin was started yesterday. * Patient recounts that she was bit by a cat on her left hand * Ceftazidime stopped, azithromycin and ceftriaxone were stopped. * CT abdomen and chest pelvis show no infective source * Monitor vitals closely every shift * Maintain oxygen saturations greater than 90% * Provide supplemental oxygen if necessary * Urine culture negative after 4 days * Urine Legionella and strep antigens negative * Follow urine cultures, sputum cultures were not able to be obtained, UA is negative * Closely monitor for fever and leukocytosis * WBC count is better yesterday at 6.7, down from 20.8. Possible COPD exacerbation Patient presented with ongoing cough, sputum production, shortness of breath. Of note patient has history of COPD. She smoked 1 pack per day for 40 years. She quit smoking 10 years ago. She uses Aclidinium and Symbicort inhalers at home. * Total respiratory care * Duonebs * lungs were clear, by mouth steroids are currently off as per dr. pearce, patient is currently not on IV steroids * Ceftaz is currently off due to isolation of Pasteurella in blood cultures. History of bilateral pulmonary nodules She has Numerous bilateral pulmonary nodules measuring up to 6 mm, unchanged since 2011, from last CAT scan December 2015 and new CAT scan done on 11/11/2016. No new or enlarging nodules are identified. Acute on chronic CHF Patient presented with worsening shortness of breath. ProBNP elevated on admission 6060. Chest x-ray findings suggestive of cardiomegaly. Patient is still experiencing orthopnea, some shortness of breath, and edema and her weight has increased by 9 pounds since admission. Her chest sounds better with only some crackles. Yesterday her intake and output was net -900, blood pressure is normal. * Echo done November 11 shows no evidence of systolic dysfunction * She was on Lasix 40 mg at home as needed for a lateral edema. * As per cardiology Dr. Jones, we should continue Eliquis 5 mg twice a day. We should also add on metoprolol succinate 25 mg once a day for rate control. He would like to set her up with labs including BEP and CBCs in 2 weeks plus a Holter monitor in 3 weeks and an office follow-up with Dr. Jones in 4 weeks. He would also like to start her on alternating doses of 40 mg and 20 mg Lasix with a K-Tab 10 mg a day and magnesium oxide 400 mg a day on discharge. * Patient has normal kidney function with a creatinine of 1.0 * potassium 3.9 up from 3.3. Paroxysmal A. fib * Patient converted to A. fib 2 nights ago and then back to normal sinus rhythm after being dosed Cardizem. Patient is to be followed on telemetry and dosed Cardizem if paroxysmal a. fib returns. * She has been started Eliquis 5 mg twice a day for anticoagulation related to her a. fib and mitral stenosis by Dr. Alanis/Dr. Jones. * Note that patient has a high INR due to her history of cirrhosis. Nonalcoholic steatohepatitis with low platelets, increased bilirubin, biliary sepsis which is now normalized, no evidence of obstructive jaundice. Do not dose NSAIDs. Arm irritation * Patient has been given Benadryl for arm itchiness and irritation Constipation * Patient has been started on senna and MiraLAX today. Hypertension * Continue home medication losartan Full code DVT prophylaxis-Eliquis Pain pathway- no NSAIDs as she has thrombocytopenia related to liver disease Regular diet Problem List: 1. CHF (congestive heart failure) 2. PNA (pneumonia) 3. Hypertension 4. Paroxysmal a-fib Pain Ratin Pain Location: None Pain Goal: Remain pain free Pain Plan: N/A Tomorrow's Labs & Rationales: Patient to be discharged. Discharge Plan Discharge Disposition: home Stable for Discharge? Yes Anticipated Discharge (Day): today MOLLY GARCIA,[facility] 11/14/16 1433: Attending MD Review Statement Attending Statement Attending MD Statement: examined this patient, discuss w/resident/PA/[employer] WORKER, agreed w/resident/PA/[employer] P[employer] WORKER, discussed with family, reviewed EMR data (avail), discussed with nursing, discussed with case mgmt, reviewed images, amended to note Attending Assessment/Plan: Ok to dc abx to continue will follow as out pt pt to do blood work cont anticoag
[2016-11-14] MEDS ORDERED: LASIX20 M1 PO ×3 (12:11→12:32)
[2016-11-14] MEDS ORDERED: K-TAB ER10 MEQ PO ×2 (12:11→12:29)
[2016-11-14] MEDS ORDERED: MAGNESIUM OXID400 M1 PO ×2 (12:11→12:29)
[2016-11-14] MEDS ORDERED: AUGMENTIN 875-1 EACH PO ×2 (12:14→12:29)
[2016-11-14] MEDS ORDERED: ELIQUIS5 M1 PO ×2 (12:18→12:29)
== END 2016-11-14 13:40 | DRG 291 ==
LOC: ERH 09:41 → ERHI 12:14 → 1NO 12:14 → CANRESERV 12:57 → ENRESERV 12:57 → ENTRNSPT 16:38 → 1NO 17:04 → CMPTRNSPT 17:45 → 1NO 11-11 07:30
PROVIDERS: Hospitalist; Physician Assistant Medical; Student in an Organized Health Care Education/Training Program; ADMIT Internal Medicine
DX: I11.0 Hypertensive heart disease with heart failure (principal); J18.9 Pneumonia, unspecified organism; A28.0 Pasteurellosis; D69.59 Other secondary thrombocytopenia; Z99.81 Dependence on supplemental oxygen; R78.81 Bacteremia; J44.1 Chronic obstructive pulmonary disease with (acute) exacerbation; K75.81 Nonalcoholic steatohepatitis (NASH); Z68.41 Body mass index [BMI] 40.0-44.9, adult; I50.33 Acute on chronic diastolic (congestive) heart failure; I48.0 Paroxysmal atrial fibrillation; E66.01 Morbid (severe) obesity due to excess calories; E55.9 Vitamin D deficiency, unspecified; L08.9 Local infection of the skin and subcutaneous tissue, unspecified; S61.451A Open bite of right hand, initial encounter; W55.01XA Bitten by cat, initial encounter; Y93.9 Activity, unspecified; Y92.9 Unspecified place or not applicable
CPT/HCPCS: 1NP; 36415; 74177; 81003; 82436; 87040; 87070; 87086; 87449; 87450; 93005; 93010; 93306; 96365; 96375; J0456; J0696; J0713; J1650; J1940; J2920; J3490; J7040; J7512

== ENCOUNTER 2017-08-18 11:01 | Inpatient (IN) | payer OTHER ==
[~2017-08-18] VITALS: Ht 165.1 cm; Wt 76.8 kg
[~2017-08-18 11:01] MED LIST changes: +AUGMENTIN 875-1 EACH PO; +ELIQUIS5 M1 PO; +ETHACRYNIC ACID25 MG PO; +K-TAB ER10 MEQ PO; +LASIX20 M1 PO; +MAGNESIUM OXID400 M1 PO; +MIRALAX17 G1 PO; -TUDORZA PRESS400 MCG; +TYLENOL325 M1 PO; +VERAPAMIL ER120 M1 PO
[2017-08-18 11:51] LABS: ABSOLUTE BASOPHIL COUNT 0 /CUMM (0.0-0.2); ABSOLUTE EOSINOPHIL COUNT 0.1 /CUMM (0.0-0.7); ABSOLUTE GRANULOCYTE CT 1.5 /CUMM (1.4-6.5); ABSOLUTE LYMPH COUNT 0.6 /CUMM (1.2-3.4); ABSOLUTE MONOCYTE COUNT 0.5 /CUMM (0.10-0.60); BASOPHIL % 1.5 % (0.0-2.0); EOSINOPHIL % 3.1 % (0-5); GRANULOCYTE % 54.7 % (42.2-75.2); MEAN CORPUSCULAR HGB 32.7 PG (27.0-31.0); MEAN CORPUSCULAR HGB CONC 33.6 G/DL (33.0-37.0); MEAN CORPUSCULAR VOLUME 97.3 FL (81.0-99.0); MEAN PLATELET VOLUME 8.8 FL (7.4-10.4); PLATELET COUNT 115 /CUMM (130-400); RBC DISTRIBUTION WIDTH 14.1 % (11.5-14.5); RED BLOOD CELL CT 4.11 /CUMM (4.20-5.40); WHITE BLOOD CELL COUNT 2.8 /CUMM (4.8-10.8)
[2017-08-18 11:59] LABS: PT 18.9 SEC (9.4-12.5); PTT 36 SEC (25-37)
--- NOTE | 2017-08-18 12:01 | RADIOLOGY REPORT ---
EXAMINATION: XR CHEST CLINICAL INFORMATION: Productive cough. Assess for pneumonia. COMPARISON: Chest x-ray 11/10/2016 CT scan of the chest, abdomen and pelvis 11/11/2016. TECHNIQUE: AP and lateral views of the chest were obtained. FINDINGS: The cardiac silhouette is at the upper limits of normal in size, decreased compared to the prior study. There is mild prominence of the central pulmonary vasculature, and there is mild peribronchial fullness. There is no focal consolidation. There are no pleural effusions. The aortic arch is slightly unfolded and the descending artery is tortuous and ectatic. There are mild degenerative changes in the thoracic spine. IMPRESSION: 1. The cardiac silhouette is at the upper limits of normal in size. There is mild prominence of the central pulmonary vasculature and there is peribronchial cuffing. The findings may be consistent with early congestive heart failure. 2. There is no evidence of focal consolidation.
--- NOTE | 2017-08-18 16:31 | ED DYSPNEA/ASTHMA COMPLAINT ---
History of Present Illness General Chief Complaint: Upper Respiratory Sx/Fever Stated Complaint: COUGH Source: patient, old records Exam Limitations: no limitations Vital Signs & Intake/Output Vital Signs & Intake/Output Vital Signs Date Time Temp Pulse Resp B/P B/P Pulse O2 O2 Flow FiO2 Mean Ox Delivery Rate 08/18 1919 98.1 69 18 150/63 94 Room Air 08/18 1603 95 08/18 1503 18.0 86 108/70 96 08/18 1119 98.0 65 18 107/68 97 Room Air Allergies Coded Allergies: diltiazem (From CARDIZEM) (Severe, TOTAL BODY RASH 08/18/17) meclizine (RASH 08/08/16) Reconcile Medications Acetaminophen (Tylenol) 325 MG TABLET 2 TAB PO DAILY PAIN (Reported) Aclidinium [place] (Tudorza Pressair) 400 MCG/ACTUATION AER.POW.BA 1 PUFF INH BID COPD (Reported) Apixaban (Eliquis) 5 MG TABLET 1 TAB PO BID blood thinner . Budesonide/Formoterol Fumarate (Symbicort 160-4.5 Mcg Inhaler) 160 MCG-4.5 MCG/ ACTUATION HFA.AER.AD 2 PUFF BID COPD (Reported) Cholecalciferol (Vitamin D3) (Vitamin D3) 1,000 UNIT CAPSULE VITAMIN SUPPORT ( Reported) Ethacrynic Acid 25 MG TABLET 1 TAB PO DAILY WATER RETENTION (Reported) Losartan Potassium 100 MG TABLET 1 TAB PO DAILY HTN (Reported) Magnesium Oxide 400 MG TABLET 1 TAB PO DAILY HYPOMAGNESEMIA . Polyethylene Glycol 3350 (Miralax) 17 GRAM POWD.PACK 1 PAC PO DAILY GI ( Reported) dissolve in water Potassium Chloride (K-Tab ER) 10 MEQ TABLET.ER 1 TAB PO DAILY HYPOKALEMIA . Verapamil HCl (Verapamil ER) 120 MG TABLET.ER 1 TAB PO QPM HEART (Reported) Triage Note: PT TO ER C/C 1 DAY HX OF PRODUCTIVE COUGH WITH THICK, STEINER SPUTUM. DENIES CHEST PAIN. +SOB ON EXERTION HX OF CHF/COPD STATES SYMPTOMS WORSE THAN NORMAL. AFEBRILE. Triage Nurses Notes Reviewed? yes Onset: Abrupt Duration: day(s): (2), changing over time, continues in ED, getting worse Timing: recent history Severity: mild, moderate Activities at Onset: activity Prior Episodes/Possible Cause: no prior episodes Associated Symptoms: cough LMP (ages 10-50): post menopausal : No Patient currently breastfeeds: No HPI: 77-year-old female past medical history of atrial fibrillation on Eliquis, COPD, CHF presents for evaluation of shortness of breath coughing and weakness. Patient states symptoms gradually worsening the past 2 days. She reports cough productive of orellana white sputum. Shortness of breath worse on exertion improved somewhat at rest but is present all the time. She also reports difficulty breathing even talking. She also reports worsening lower extremity edema. No chest pain hemoptysis fever. She's been using her inhalers without much improvement. She takes 20 mg of Lasix daily but has not yet taken any medicine today. (John Guerrero) Past History Travel History Traveled to [place] past 21 day No Medical History Any Pertinent Medical History? 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 No (John Guerrero) Review of Systems Review of Systems Constitutional: Reports: malaise, weakness. EENTM: Reports: no symptoms. Respiratory: Reports: see HPI, cough, short of breath, sputum production, wheezing. Cardiovascular: Reports: peripheral edema. GI: Reports: no symptoms. Genitourinary: Reports: no symptoms. Musculoskeletal: Reports: no symptoms. Skin: Reports: no symptoms. Neurological/Psychological: Reports: no symptoms. Hematologic/Endocrine: Reports: no symptoms. Immunologic/Allergic: Reports: no symptoms. All Other Systems: Reviewed and Negative (John Guerrero) Physical Exam Physical Exam General Appearance: well developed/nourished, no apparent distress, alert, awake , obese Head: atraumatic, normal appearance Eyes: Bilateral: normal appearance, PERRL, EOMI. Ears, Nose, Throat: normal pharynx, normal ENT inspection, hearing grossly normal Neck: normal inspection, supple, full range of motion Respiratory: chest non-tender, no respiratory distress, rhonchi, wheezing Cardiovascular: regular rate/rhythm, normal peripheral pulses Peripheral Pulses: 2+ radial (R), 2+ radial (L) Gastrointestinal: normal bowel sounds, soft, non-tender, no organomegaly Extremities: normal range of motion, THERE IS BILATERAL NONPITTING LOWER EXTREMITY EDEMA, NO ERYTHEMA OR DISCHARGE Neurologic/Psych: no motor/sensory deficits, awake, alert, oriented x 3, normal gait Skin: intact, normal color, warm/dry Lymphatic: no anterior cervical angie Core Measures ACS in differential dx? Yes CVA/TIA Diagnosis No Sepsis Present: No Sepsis Focused Exam Completed? No (Dave GERBRE,John) Progress Differential Diagnosis: asthma, AMI, bronchitis, CHF, COPD, pericarditis, pulmonary embolism, pneumonia, unstable angina Plan of Care: Orders Procedure Date/time Status CHF Diet 08/19 B Active CBC WITHOUT DIFFERENTIAL 08/19 0600 Active BASIC ELECTROLYTES PLUS BUN&CR 08/19 0600 Active Change service to 08/18 1847 Active TROPONIN LEVEL 08/18 1834 Complete EKG 08/18 1834 Active Pathway - chart 08/18 1833 Active House Staff 08/18 1833 Active Patient Data 08/18 1715 Active ED Holding Orders 08/18 1705 Active Admit to inpatient 08/18 1705 Active Vital Signs 08/18 1705 Active Code Status 08/18 1705 Active Add-on Test (ER Only) 08/18 1540 Active Add-on Test (ER Only) 08/18 1538 Active Intake & Output 08/18 1459 Active EKG 08/18 1448 Active MAGNESIUM 08/18 1140 Complete D-DIMER 08/18 1140 Complete RAPID VIRAL INFLUENZA A 08/18 1122 Complete TROPONIN LEVEL 08/18 1121 Complete PARTIAL THROMBOPLASTIN TIME 08/18 1121 Complete PROTHROMBIN TIME 08/18 1121 Complete LACTIC ACID 08/18 1121 Complete COMPREHENSIVE METABOLIC PANEL 08/18 1121 Complete CBC WITHOUT DIFFERENTIAL 08/18 1121 Complete B-TYPE NATRIURETIC PEP (BNP) 08/18 1121 Complete TRC EVALUATION (GEN) 08/18 UNK Active Saline Lock 08/18 UNK Active CHF Core Measures 08/18 UNK Active Weight 08/18 UNK Active VTE Mechanical Prophylaxis 08/18 UNK Active Activity/Ambulation 08/18 UNK Active Current Medications Sig/Estephania Start time Last Medication Dose Stop Time Status Admin Acetaminophen 650 MG Q6 08/18 2359 UNVr (Tylenol) Potassium Chloride 60 MEQ ONCE ONE 08/18 181 CAN (K-Dur) 08/18 181 Laboratory Tests 08/18/17 1840: Troponin I 0.02 08/18/17 1421: Lactic Acid Cancelled 08/18/17 1140: Anion Gap 10, Estimated GFR 54 L, BUN/Creatinine Ratio 25.0, Glucose 91, Lactic Acid 1.4, Calcium 9.6, Magnesium 1.7, Total Bilirubin 1.9 H, AST 30, ALT 26, Alkaline Phosphatase 84, Troponin I 0.02, Lhv-D-Vrirdygsjly Pept 2760 H, Total Protein 7.0, Albumin 3.4 L, Globulin 3.6, Albumin/Globulin Ratio 0.9 L, PT 18.9 H, INR 1.72 H, APTT 36, D-Dimer High Sensitivty 249 H, CBC w Diff NO MAN DIFF REQ, RBC 4.11 L, MCV 97.3, MCH 32.7 H, MCHC 33.6, RDW 14.1, MPV 8.8, Gran % 54.7, Lymphocytes % 21.7, Monocytes % 19.0 H, Eosinophils % 3.1, Basophils % 1.5, Absolute Granulocytes 1.5, Absolute Lymphocytes 0.6 L, Absolute Monocytes 0.5, Absolute Eosinophils 0.1, Absolute Basophils 0 Microbiology 08/18 1123 NASOPHARYN: Influenza Virus A & B Rapid Smear - COMP Patient seen and evaluated. She has diffuse wheezing and rhonchi bilaterally. She becomes dyspneic just talking. She was a blade in the emergency department he desaturates to 90%. She becomes visibly dyspneic. She has lower extremity edema chest x-ray shows evidence of some pulmonary edema. She has wheezing and rhonchi bilaterally. Patient was given an albuterol nebulizer, 40 mg of Lasix and 125 Solu-Medrol. She will require admission to the hospital for further evaluation and treatment her chest x-ray is stable troponin is negative d-dimer is negative no signs of pneumonia. Patient be admitted to the hospital for treatment of COPD and CHF exacerbation. Case discussed with Dr. Hernandez he agrees patient admitted to the hospital. Diagnostic Imaging: Viewed by Me: Radiology Read. Discussed w/RAD: Radiology Read. CXR Impression: PATIENT: WANDA COWAN PRESENT AGE: 77 PATIENT ACCOUNT NO: [id number] : 40 LOCATION: [facility] ORDERING PHYSICIAN: Alo Landon DO SERVICE DATE: 08/18/17 EXAM TYPE: RAD - XRY-CHEST XRAY, TWO VIEWS EXAMINATION: XR CHEST CLINICAL INFORMATION: Productive cough. Assess for pneumonia. COMPARISON: Chest x-ray 11/10/2016 CT scan of the chest, abdomen and pelvis 11/11/2016. TECHNIQUE: AP and lateral views of the chest were obtained. FINDINGS: The cardiac silhouette is at the upper limits of normal in size, decreased compared to the prior study. There is mild prominence of the central pulmonary vasculature, and there is mild peribronchial fullness. There is no focal consolidation. There are no pleural effusions. The aortic arch is slightly unfolded and the descending artery is tortuous and ectatic. There are mild degenerative changes in the thoracic spine. IMPRESSION: 1. The cardiac silhouette is at the upper limits of normal in size. There is mild prominence of the central pulmonary vasculature and there is peribronchial cuffing. The findings may be consistent with early congestive heart failure. 2. There is no evidence of focal consolidation. DICTATED BY: Deuce Saha MD DATE/TIME DICTATED :08/18/171153 HOME AND SCHOOL VISITOR:JOSÉ MIGUEL DATE/TIME TRANSCRIBED:08/18/171153 CONFIDENTIAL, DO NOT COPY WITHOUT APPROPRIATE AUTHORIZATION. Initial ED EKG: normal sinus rhythm, LBBB, PVC Prior EKG: unchanged (John Guerrero) Departure Departure Disposition: STILL A PATIENT Condition: Stable Clinical Impression Primary Impression: COPD exacerbation Secondary Impressions: CHF exacerbation Qualifiers: Heart failure type: unspecified Qualified Code: I50.9 - Heart failure, unspecified Referrals: Valerie GARCIA,Roman Robles (PCP/Family) Departure Forms: Customer Survey General Discharge Information Admission Note Spoke With: Jim Duque MD Documentation of Exam: Documentation of any treatments & extenuating circumstances including Concerns Regarding Discharge (functional status, medication knowledge or non-compliance, living conditions, etc.) that warrant an admission rather than observation: [ Cardiology consult, pulmonology consult, DuoNeb's, IV steroids, IV diuresis, telemetry, serial labs, serial EKGs, monitoring of vital signs] (Jonh Guerrero) PA/KILN CLEANER Co-Sign Statement Statement: ED Attending supervision documentation- [x] I saw and evaluated the patient. I have also reviewed all the pertinent lab results and diagnostic results. I agree with the findings and the plan of care as documented in the PA's/KILN CLEANER's documentation. [] I have reviewed the ED Record and agree with the PA's/KILN CLEANER's documentation. [] Additions or exceptions (if any) to the PAs/KILN CLEANER's note and plan are summarized below: [] I saw and personally evaluated the patient. Lungs revealed mild expiratory wheezes. (Dipesh CONRAD,Alo Jacobson) Critical Care Note Critical Care Note Critical Care Time: non-applicable (John Guerrero)
--- NOTE | 2017-08-18 17:07 | Admission Certification ---
Admission Certification Certification Statement - As attending physician, I certify that at the time of - admission, based on clinical presentation, severity of - symptoms, need for further diagnostic testing and - therapeutic interventions, and risk of adverse outcomes - without in-hospital treatment, in my clinical assessment, - this patient requires an acute hospital stay for a minimum - of two nights or longer. I have also considered psychsocial - factors such as support system, advanced age, financial - issues, cognitive issues, and failed out-patient treatments, - past re-admission history, safety of patient, and lack of - compliance as applicable. Specific rationale supporting this admission is: Acute shortness of breath suspect COPD and possibly CHF exacerbation.
--- NOTE | 2017-08-18 18:05 | History & Physical ---
See Addendum Trinity Felix MD 08/18/17 5267: General Information and HPI MD Statement: I have seen and personally examined WANDA COWAN and documented this H&P. The patient is a 77 year old F who presented with a patient stated chief complaint of upper respiratory symptoms Source of Information: patient, family, old records Exam Limitations: no limitations History of Present Illness: This is a 77-year-old female for past medical history significant for COPD, CHF, hypertension, diabetes, heparin-induced thrombocytopenia, paroxysmal A. fib on Eliquis 5 mg twice a day, cirrhosis secondary to fatty liver disease, status post cholecystectomy that comes to us for symptoms of fever, productive cough with clear sputum and shortness of breath of one days duration. The patient stated that her cough started on to Friday and then was followed by shortness of breath on exertion only in the past 24 hours. She also is experiencing back pain associated with breathing in the middle of her back and on the right side. She denies any recent injury. She is not on any home oxygen , not on any chronic steroids. She denies any chest pain. She also denies any vision or hearing change, nausea or vomiting, headache, abdominal pain, bowel or urinary changes. Patient states that she had a similar episode similar to this one year ago. The patient also admits to lower extremity edema on and off. She denies any shortness of breath when she lies flat however. Patient's PCP is Dr. Padilla Allergies/Medications Allergies: Coded Allergies: diltiazem (From [facility] (Severe, TOTAL BODY RASH 08/18/17) meclizine (RASH 08/08/16) Compliance With Home Meds: GOOD Past History Travel History Traveled to [place] past 21 day No Medical History Neurological: NONE EENT: NONE Cardiovascular: CHF, hypertension Respiratory: COPD Gastrointestinal: NONE Hepatic: cirrhosis Renal: NONE Musculoskeletal: TWO KNEE REPLACEMENTS Psychiatric: NONE Endocrine: DIABETIC Blood Disorders: hep ind thrombocytopenia, "SENSITIVE TO BRUISING" Cancer(s): NONE 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 Ambulation: cane, walker Review of Systems Review of Systems Constitutional: Reports: fever, weakness. EENTM: Reports: no symptoms. Cardiovascular: Reports: edema. Respiratory: Reports: cough, short of breath, sputum production. GI: Reports: no symptoms. Genitourinary: Reports: no symptoms. Musculoskeletal: Reports: no symptoms. Skin: Reports: no symptoms. Neurological/Psychological: Reports: no symptoms. Hematologic/Endocrine: Reports: no symptoms. Immunologic/Allergic: Reports: no symptoms. All Other Systems: Reviewed and Negative Exam & Diagnostic Data Last 24 Hrs of Vital Signs/I&O Vital Signs Date Time Temp Pulse Resp B/P B/P Pulse O2 O2 Flow FiO2 Mean Ox Delivery Rate 08/19 0004 98.3 78 18 117/76 95 Room Air 08/18 2244 80 18 123/53 99 Room Air 08/18 1919 98.1 69 18 150/63 94 Room Air 08/18 1603 95 08/18 1503 18.0 86 108/70 96 08/18 1119 98.0 65 18 107/68 97 Room Air Intake & Output 08/19 0800 08/19 0000 08/18 1600 Intake Total Output Total 250 Balance -250 Output, Urine 250 Patient 270 lb Weight Weight Reported by Patient Measurement Method Physical Exam General Appearance Alert, Oriented X3, Cooperative, No Acute Distress Skin No Rashes, No Breakdown, No Significant Lesion Skin Temp/Moisture Exam: Warm/Dry Sepsis Skin Exam (color): Normal for Ethnicity HEENT Atraumatic, PERRLA, EOMI, Mucous Membr. moist/pink Neck Supple, No JVD Cardiovascular Normal S1, Normal S2, No Murmurs Lungs Clear to Auscultation, Normal Air Movement Abdomen Normal Bowel Sounds, Soft, No Tenderness Neurological Normal Speech Extremities No Clubbing, No Cyanosis, Normal Pulses, No Tenderness/Swelling Vascular Normal Pulses, Pulses Symmetrical Assessment/Plan Assessment: This is a 77-year-old female for past medical history significant for COPD, CHF, hypertension, diabetes, heparin-induced thrombocytopenia, paroxysmal A. 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 The patient is not on any home steroids or oxygen. She had one episode like this in the past. In the ED vitals are stable and oxygen saturation is 97% on room air. Physical exam was done post breathing treatment and her lungs were here on auscultation. Her pulse is irregular as she has paroxysmal atrial fibrillation. Important labs include a WBC of 2.8, d-dimer 249, lactic acid 1.4, negative troponin, normal liver function tests except for total bilirubin elevated to 1.9, proBNP 2760, albumin 3.4. In the ED she was given Solu-Medrol 125 mg 1 and Lasix 40 mg 1. She was also given the Atrovent and Proventil as previously mentioned. A chest x-ray was suggestive of early CHF with no focal consolidation. EKG showed a rate of 68 with long OR interval of 212 and QTC of 528, evidence of left bundle branch block and PVCs. The patient appears to be having a mixed COPD/CHF exacerbation picture with lower extremity edema and evidence of CHF on chest x-ray and mildly elevated BNP but also with reactive airway evidence by wheezing pre-breathing treatment and COPD exacerbation 2/2 potential upper respiratory infection. Plan Admit patient to the telemetry floor for evaluation and treatment of the following: CHF exacerbation Continue diuresis with 40 mg IV Lasix Strict ins and outs and daily weights Serial troponins and EKGs TRC nebs Low sodium diet Cardiology consult Continue spironolactone 25 mg daily Hypertension Pressure is stable at 117/76 Hold antihypertensives except for verapamil COPD exacerbation Continue Solu-Medrol 40 mg IV transitioning to oral taper Paroxysmal A. fib Continue the patient's Eliquis 5 mg twice a day Can continue verapamil which also has antihypertensive properties Irritable bowel syndrome Continue Linzess Patient is full code Low sodium diet DVT prophylaxis with Alps and Eliquis As Ranked By This Provider Problem List: 1. COPD exacerbation 2. CHF exacerbation Qualifiers Heart failure type: unspecified Qualified Code: I50.9 - Heart failure, unspecified 3. Paroxysmal a-fib Core Measures/Misc (01/19) Acute Coronary Syndrome ACS Diagnosis: No Congestive Heart Failure Congestive Heart Failure Diagnosis No Cerebrovascular Accident CVA/TIA Diagnosis: No VTE (View Protocol) VTE Risk Factors Age>40 No Mechanical VTE [facility] No VTE Pharm Prophylaxis d/t NA PharmProphylax ordered Sepsis (View protocol) Sepsis Present: Phan Hernandez 08/19/17 0104: Resident Review Statement Resident Statement: examined this patient, discussed with director internal control, agreed with director internal control, discussed with family, reviewed EMR data (avail), discussed with nursing , discussed with case mgmt, reviewed images Other Findings: Mrs. Cowan is a 76-year-old female with past medical history significant for COPD not on home oxygen, stage I diastolic congestive heart failure on Lasix as needed, bilateral leg swelling, paroxysmal A. fib on Eliquis, hypertension, history of cirrhosis, bilateral knee replacements, heparin-induced thrombocytopenia, solitary lung nodule, history of smoking presented to emergency department with chief complaint of fever, productive cough of clear phlegm and shortness of breath for 1 day. The History above Vitals was stable On examination she was noted to have decreased air entry bilaterally with scattered wheezing, and bibasilar crackles, she has bilateral lower extremity +2 edema Heart exam: S1, S2. Irregular pulse Labs pertinent to WBC of 2.8, proBNP 2760, INR 1.72, d-dimer of 249 Chest x-ray: The cardiac silhouette is at the upper limits of normal in size. There is mild prominence of the central pulmonary vasculature and there is peribronchial cuffing. The findings may be consistent with early congestive heart failure. There is no evidence of focal consolidation. The patient was received 125 mg IV Solu-Medrol, 40 mg IV Lasix, albuterol treatment I admit the patient to telemetry floor for possible CHF exacerbation, but continue diuresis with 40 mg IV Lasix (assess rthe need for diuresis at a.m.), Solu-Medrol 40 mg IV a.m. (if she continued to improve start oral taper), strict intake and output, daily weight, serial EKG and troponin, TRC/Nebs, CHF diet, cardiology consult, let Dr. Padilla know that the patient is here. DVT prophylaxis: Fanta, she is full code Jimi GARCIA,Mary 09/10/17 1325: General Information and HPI Allergies/Medications Home Med list Acetaminophen (Tylenol) 325 MG TABLET 2 TAB PO DAILY PAIN (Reported) Aclidinium [place] (Tudorza Pressair) 400 MCG/ACTUATION AER.POW.BA 1 PUFF INH BID COPD Albuterol Sulfate 0.63 MG/3 ML VIAL.NEB 1 Vial INH/CATRACHITA 4 TIMES/DAY PRN SOB Apixaban (Eliquis) 5 MG TABLET 1 TAB PO BID blood thinner . Budesonide/Formoterol Fumarate (Symbicort 160-4.5 Mcg Inhaler) 160 MCG-4.5 MCG/ ACTUATION HFA.AER.AD 2 PUFF BID COPD (Reported) Cefuroxime Axetil (Cefuroxime) 250 MG TABLET 1 TAB PO BID BRONCHITIS . Cholecalciferol (Vitamin D3) (Vitamin D3) 1,000 UNIT CAPSULE VITAMIN SUPPORT ( Reported) Ethacrynic Acid 25 MG TABLET 1 TAB PO DAILY WATER RETENTION (Reported) Furosemide (Lasix) 20 MG TABLET 1 TAB PO EOD DIURESIS Linaclotide (Linzess) 145 MCG CAPSULE 145 MG PO DAILY HTN (Reported) Magnesium Oxide 400 MG TABLET 1 TAB PO DAILY HYPOMAGNESEMIA . Nebulizer (Aeroeclipse II) 1 EACH EACH 1 UNIT INH DAILY PRN SOB Polyethylene Glycol 3350 (Miralax) 17 GRAM POWD.PACK 1 PAC PO DAILY GI ( Reported) dissolve in water Prednisone 10 MG TABLET 10 MG PO SEE ADMIN COPD Spironolactone 25 MG TABLET 25 MG PO DAILY HTN (Reported) Verapamil HCl (Verapamil ER) 120 MG TABLET.ER 1 TAB PO QPM HEART (Reported) Attending MD Review Statement Attending Statement Attending Assessment/Plan: This was assigned to me in error. The pt is Dr Padilla's pt and was seen by Dr Duque on admission
--- NOTE | 2017-08-18 19:10 | PN- Att Addend ---
Attending Addendum Attending Brief Note 77 year old female patient of dr Padilla, history of COPD and CHF, for the last 2 days increased shortness of breath, cough grayish sputum feverish did not take her temperature. Comes to the ER in respiratory distress, CXR showed only moild congestion. After respiratory theraphy feels improvrd. Will admit with an exacerbation of COPD and ? mild CHF. Discussed with residents plan of care. Current Medications Sig/Estephania Start time Last Medication Dose Route Stop Time Status Admin Acetaminophen 650 MG Q6 08/18 2359 UNVr PO Albuterol Sulfate 3 ML ONCE ONE 08/18 1600 DC 08/18 INH 08/18 1601 1603 Furosemide 0 .STK-MED ONE 08/18 1703 DC IV Furosemide 40 MG ONCE ONE 08/18 1615 DC 08/18 IV 08/18 1616 1714 Ipratropium [place] 2.5 ML ONCE ONE 08/18 1600 DC 08/18 INH 08/18 1601 1603 Methylprednisolone 0 .STK-MED ONE 08/18 1703 DC .ROUTE Methylprednisolone 125 MG ONCE ONE 08/18 1630 DC 08/18 IV 08/18 1631 1715 Potassium Chloride 60 MEQ ONCE ONE 08/18 1815 CAN PO 08/18 1816 Laboratory Tests 08/18/17 1840: Troponin I Pending 08/18/17 1421: Lactic Acid Cancelled 08/18/17 1140: Anion Gap 10, Estimated GFR 54 L, BUN/Creatinine Ratio 25.0, Glucose 91, Lactic Acid 1.4, Calcium 9.6, Magnesium 1.7, Total Bilirubin 1.9 H, AST 30, ALT 26, Alkaline Phosphatase 84, Troponin I 0.02, Ywu-N-Tlgcdjqocad Pept 2760 H, Total Protein 7.0, Albumin 3.4 L, Globulin 3.6, Albumin/Globulin Ratio 0.9 L, PT 18.9 H, INR 1.72 H, APTT 36, D-Dimer High Sensitivty 249 H, CBC w Diff NO MAN DIFF REQ, RBC 4.11 L, MCV 97.3, MCH 32.7 H, MCHC 33.6, RDW 14.1, MPV 8.8, Gran % 54.7, Lymphocytes % 21.7, Monocytes % 19.0 H, Eosinophils % 3.1, Basophils % 1.5, Absolute Granulocytes 1.5, Absolute Lymphocytes 0.6 L, Absolute Monocytes 0.5, Absolute Eosinophils 0.1, Absolute Basophils 0
[2017-08-18] MEDS ORDERED: LINZESS145 MC1 PO ×2 (22:42→22:44)
[2017-08-18] MEDS ORDERED: SPIRONOLACTONE25 M1 PO (22:43)
[2017-08-19 06:02] LABS: ABSOLUTE BASOPHIL COUNT 0 /CUMM (0.0-0.2); ABSOLUTE EOSINOPHIL COUNT 0 /CUMM (0.0-0.7); ABSOLUTE LYMPH COUNT 0.3 /CUMM (1.2-3.4); ABSOLUTE MONOCYTE COUNT 0.1 /CUMM (0.10-0.60); EOSINOPHIL % 0.1 % (0-5); RED BLOOD CELL CT 3.93 /CUMM (4.20-5.40)
[2017-08-19 06:33] LABS: BASOPHIL % 0 % (0.0-2.0); GRANULOCYTE % 68.1 % (42.2-75.2); HEMATOCRIT 37.7 % (37-47); MEAN CORPUSCULAR HGB 32.6 PG (27.0-31.0); MEAN CORPUSCULAR VOLUME 95.9 FL (81.0-99.0); MEAN PLATELET VOLUME 9.2 FL (7.4-10.4); PLATELET COUNT 101 /CUMM (130-400); RBC DISTRIBUTION WIDTH 13.9 % (11.5-14.5)
[2017-08-19 06:41] LABS: WHITE BLOOD CELL COUNT 1.4 /CUMM (4.8-10.8)
--- NOTE | 2017-08-19 07:58 | PN- Housestaff ---
Subjective Follow-up For: SOB Subjective: Saw pt at bedside this AM. She stated that she still felt short of breath. No other acute overnight events. Review of Systems Constitutional: Denies: diaphoresis, weakness. EENTM: Denies: blurred vision. Cardiovascular: Reports: peripheral edema. Denies: chest pain, palpitations. Respiratory: Reports: cough, orthopnea, short of breath. Gastrointestinal: Reports: no symptoms. Genitourinary: Reports: no symptoms. Musculoskeletal: Reports: no symptoms. Objective Last 24 Hrs of Vital Signs/I&O Vital Signs Date Time Temp Pulse Resp B/P B/P Pulse O2 O2 Flow FiO2 Mean Ox Delivery Rate 08/19 1446 Room Air 08/19 1446 95 Room Air 08/19 1400 97.3 88 20 110/60 95 Room Air 08/19 1236 97.9 77 18 132/69 95 Room Air 08/19 0552 98.0 79 18 120/75 96 Room Air 08/19 0230 77 20 94 Room Air 08/19 0004 98.3 78 18 117/76 95 Room Air 08/18 2244 80 18 123/53 99 Room Air 08/18 1919 98.1 69 18 150/63 94 Room Air Intake & Output 08/19 1600 08/19 0800 08/19 0000 Intake Total Output Total 800 550 Balance -800 -550 Output, Urine 800 550 Physical Exam General Appearance: Alert, Oriented X3, Cooperative, No Acute Distress Skin: No Rashes, No Breakdown, No Significant Lesion HEENT: Atraumatic, PERRLA, EOMI Neck: Supple Cardiovascular: Regular Rate, Normal S1, Normal S2 Lungs: She has some diminished air movement and has crackles at bases. No wheezes appreciated. Abdomen: Soft, No Tenderness Current Medications: Current Medications Sig/Estephania Start time Last Medication Dose Route Stop Time Status Admin Acetaminophen 650 MG DAILY 08/19 0900 DC PO Acetaminophen 650 MG Q6 08/18 2359 DC 08/19 PO 0001 Albuterol Sulfate 3 ML Q4P PRN 08/19 1430 AC 08/19 INH 1424 Apixaban 5 MG BID 08/18 2359 AC 08/19 PO 0919 Budesonide/ 2 PUF BID 08/19 0900 AC 08/19 Formoterol Fumarate INH 0919 Furosemide 40 MG DAILY 08/19 0900 AC 08/19 IV 0919 Furosemide 0 .STK-MED ONE 08/18 1703 DC IV Linaclotide 145 MCG DAILY 08/19 899 AC 08/19 PO 0919 Magnesium Oxide 400 MG DAILY 08/19 899 AC 08/19 PO 0919 Methylprednisolone 40 MG DAILY 08/19 899 AC 08/19 IV 0919 Methylprednisolone 0 .STK-MED ONE 08/18 1703 DC .ROUTE Methylprednisolone 125 MG ONCE ONE 08/18 1630 DC 08/18 IV 08/18 1631 1715 Potassium Chloride 60 MEQ ONCE ONE 08/18 1815 CAN PO 08/19 1815 Spironolactone 25 MG DAILY 08/19 899 AC 08/19 PO 918 Verapamil HCl 120 MG QPM 08/19 2100 AC PO Last 24 Hrs of Lab/Mina Results Last 24 Hrs of Labs/Mics: Laboratory Tests 08/19/17 0553: Anion Gap 7, Estimated GFR > 60, BUN/Creatinine Ratio 32.2 H, CBC w Diff MAN DIFF ORDERED, RBC 3.93 L, MCV 95.9, MCH 32.6 H, MCHC 34.0, RDW 13.9, MPV 9.2, Gran % 68.1, Lymphocytes % 24.5, Monocytes % 7.3, Eosinophils % 0.1, Basophils % 0, Absolute Granulocytes 1.0 L, Segmented Neutrophils 64, Band Neutrophils 2, Absolute Lymphocytes 0.3 L, Lymphocytes 24, Monocytes 10 H, Absolute Monocytes 0.1, Absolute Eosinophils 0, Absolute Basophils 0, Platelet Estimate DECREASED, Anisocytosis 1+, Elliptocytes 1+ 08/18/17 1840: Troponin I 0.02 Assessment/Plan Assessment: ASSESSMENT:This is a 77 yo female w/ PMH of COPD, CHF, HTN, DM, HIT, PAF on Eliquis, fatty liver disease who comes in with CC of worsening SOB/DARDEN with productive cough. Ambulatory sat in ED was 90% with her resting sat at 94%. She states that she increased her lasix to 40mg daily for four days prior to admission and saw no improvement on her DARDEN. She is admitted to telemetry unit for further management of her SOB. PLAN COPD: Pt has hx of COPD not on home O2. * TRC * PRN O2 for sats > 92 * azithro, no ceftriaxone bc no evidence of infection * sputum cx CHF: BNP 2760. XRY shows that the cardiac silhouette is at the upper limits of normal in size. There is mild prominence of the central pulmonary vasculature and there is peribronchial cuffing. The findings may be consistent with early congestive heart failure. November 2016 echocardiogram shows LVEF 60-65 with stage one diastolic dysfunction, mild , mild MS, and LVH. * TRC * Spironolactone * Strict ins and outs and daily weights * Appreciate cardiology consult * Echo * IV lasix 40mg Leukopenia: Pt has intermittently had wbc low but today at 1.4 (2 bands) which is the lowest it has been. Pt currently receiving IV solumedrol for COPD exacerbation. In that context she is afebrile. No evidence of consolidation on cxr. * Con't monitor * Appreciate ID consult Thombocytopenia: Plt today 101. Has previous hx of plt 98-148. 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 Today Tbili 1.9. pAFIB: * Verapamil * Con't Eliquis IBS: * Con't Linzess FC HHD ELIQUIS for ppx Problem List: 1. CHF (congestive heart failure) 2. COPD exacerbation Pain Ratin Pain Location: NONE Pain Goal: Remain pain free Pain Plan: NONE Tomorrow's Labs & Rationales: CBC BEP
--- NOTE | 2017-08-19 10:28 | PN- Att Addend ---
Attending Addendum Attending Brief Note Patient feeling better sitting at edge of the bed not short of breath but stated the breathing treatments really helped her. Her vital signs are stable no fever better air entry the only abnormality is her white count is low today will check all the cultures next and she has no sepsis continue antibiotic treatment 9 labs closely the white count my need precautions Intake & Output 08/19 1600 08/19 0800 08/19 0000 08/18 1600 08/18 0800 08/18 0000 Intake Total Output Total 800 550 Balance -800 -550 Output, Urine 800 550 Patient 270 lb Weight Weight Reported by Patient Measurement Method Current Medications Sig/Estephania Start time Last Medication Dose Route Stop Time Status Admin Acetaminophen 650 MG DAILY 08/19 09 DC PO Acetaminophen 650 MG Q6 08/18 2359 AC 08/19 PO 0001 Albuterol Sulfate 3 ML ONCE ONE 08/18 1600 DC 08/18 INH 08/18 1601 1603 Apixaban 5 MG BID 08/18 2359 AC 08/19 PO 0919 Budesonide/ 2 PUF BID 08/19 09 AC 08/19 Formoterol Fumarate INH 0919 Furosemide 40 MG DAILY 08/19 0900 AC 08/19 IV 0919 Furosemide 0 .STK-MED ONE 08/18 1703 DC IV Furosemide 40 MG ONCE ONE 08/18 1615 DC 08/18 IV 08/18 1616 1714 Ipratropium [place] 2.5 ML ONCE ONE 08/18 1600 DC 08/18 INH 08/18 1601 1603 Linaclotide 145 MCG DAILY 08/19 09 AC 08/19 PO 0919 Magnesium Oxide 400 MG DAILY 08/19 09 AC 08/19 PO 0919 Methylprednisolone 40 MG DAILY 08/19 0900 AC 08/19 IV 0919 Methylprednisolone 0 .STK-MED ONE 08/18 1703 DC .ROUTE Methylprednisolone 125 MG ONCE ONE 08/18 1630 DC 08/18 IV 08/18 1631 1715 Potassium Chloride 60 MEQ ONCE ONE 08/18 1815 CAN PO 08/18 181 Spironolactone 25 MG DAILY 08/19 0900 AC 08/19 PO 0919 Verapamil HCl 120 MG QPM 08/19 2100 AC PO Laboratory Tests 08/19/17 0553: Anion Gap 7, Estimated GFR > 60, BUN/Creatinine Ratio 32.2 H, CBC w Diff MAN DIFF ORDERED, RBC 3.93 L, MCV 95.9, MCH 32.6 H, MCHC 34.0, RDW 13.9, MPV 9.2, Gran % 68.1, Lymphocytes % 24.5, Monocytes % 7.3, Eosinophils % 0.1, Basophils % 0, Absolute Granulocytes 1.0 L, Segmented Neutrophils 64, Band Neutrophils 2, Absolute Lymphocytes 0.3 L, Lymphocytes 24, Monocytes 10 H, Absolute Monocytes 0.1, Absolute Eosinophils 0, Absolute Basophils 0, Platelet Estimate DECREASED, Anisocytosis 1+, Elliptocytes 1+ 08/18/17 1840: Troponin I 0.02 08/18/17 1421: Lactic Acid Cancelled 08/18/17 1140: Anion Gap 10, Estimated GFR 54 L, BUN/Creatinine Ratio 25.0, Glucose 91, Lactic Acid 1.4, Calcium 9.6, Magnesium 1.7, Total Bilirubin 1.9 H, AST 30, ALT 26, Alkaline Phosphatase 84, Troponin I 0.02, Svp-G-Aegtzlxksjl Pept 2760 H, Total Protein 7.0, Albumin 3.4 L, Globulin 3.6, Albumin/Globulin Ratio 0.9 L, PT 18.9 H, INR 1.72 H, APTT 36, D-Dimer High Sensitivty 249 H, CBC w Diff NO MAN DIFF REQ, RBC 4.11 L, MCV 97.3, MCH 32.7 H, MCHC 33.6, RDW 14.1, MPV 8.8, Gran % 54.7, Lymphocytes % 21.7, Monocytes % 19.0 H, Eosinophils % 3.1, Basophils % 1.5, Absolute Granulocytes 1.5, Absolute Lymphocytes 0.6 L, Absolute Monocytes 0.5, Absolute Eosinophils 0.1, Absolute Basophils 0 Microbiology 08/18 1123 NASOPHARYN: Influenza Virus A & B Rapid Smear - COMP Vital Signs Date Time Temp Pulse Resp B/P B/P Pulse O2 O2 Flow FiO2 Mean Ox Delivery Rate 08/19 0552 98.0 79 18 120/75 96 Room Air 08/19 0230 77 20 94 Room Air 08/19 0004 98.3 78 18 117/76 95 Room Air 08/18 2244 80 18 123/53 99 Room Air 08/18 1919 98.1 69 18 150/63 94 Room Air 08/18 1603 95 08/18 1503 18.0 86 108/70 96 04/16 1119 98.0 65 18 107/68 97 Room Air
[2017-08-19 14:00] VITALS: BP 110/60
[2017-08-19 22:25] VITALS: BP 110/60
[2017-08-20 05:58] VITALS: BP 102/58
--- NOTE | 2017-08-20 07:54 | PN- Housestaff ---
Subjective Follow-up For: SOB Subjective: Saw pt at bedside this AM. She states that her legs are much less swollen, she was able to ambulate to bathroom with less exertion than previously. No acute overnight events. Review of Systems Constitutional: Denies: chills, fever, weakness. EENTM: Denies: blurred vision. Cardiovascular: Reports: peripheral edema. Denies: chest pain. Respiratory: Reports: cough, short of breath, sputum production. Gastrointestinal: Reports: no symptoms. Genitourinary: Reports: no symptoms. Musculoskeletal: Reports: no symptoms. Skin: Reports: no symptoms. Objective Last 24 Hrs of Vital Signs/I&O Vital Signs Date Time Temp Pulse Resp B/P B/P Pulse O2 O2 Flow FiO2 Mean Ox Delivery Rate 08/20 1103 95 Room Air 08/20 0558 97.6 64 20 102/58 96 Room Air 08/19 2225 98.3 73 20 110/60 94 Room Air 08/19 2114 Room Air 08/19 2054 88 116/64 08/19 1925 95 Room Air 08/19 1446 Room Air 08/19 1446 95 Room Air 08/19 1400 97.3 88 20 110/60 95 Room Air Intake & Output 08/20 1600 08/20 0800 08/20 0000 Intake Total 280 200 Output Total 500 Balance -220 200 Intake, Oral 280 200 Output, Urine 500 Patient 112.264 kg Weight Physical Exam General Appearance: Alert, Oriented X3, Cooperative, No Acute Distress Skin: No Significant Lesion HEENT: Atraumatic, PERRLA, EOMI, Mucous Membr. moist/pink Neck: Supple Cardiovascular: Regular Rate, No Murmurs Lungs: diffusely wheezy today. She does have some rhonchi and diminished air movement. Abdomen: Soft, No Tenderness Extremities: edema 2+ bilat le Current Medications: Current Medications Sig/Estephania Start time Last Medication Dose Route Stop Time Status Admin Acetaminophen 650 MG Q6 08/18 2359 DC 08/19 PO 0001 Albuterol Sulfate 3 ML Q4P PRN 08/19 1430 AC 08/20 INH 1101 Apixaban 5 MG BID 08/18 2359 AC 08/20 PO 0818 Azithromycin 250 MG DAILY 08/20 0900 AC PO 08/22 0901 Azithromycin 500 MG ONCE ONE 08/19 1630 DC PO 08/19 1631 Budesonide/ 2 PUF BID 08/19 899 AC 08/20 Formoterol Fumarate INH 1125 Furosemide 60 MG ONE ONE 08/21 899 UNVr PO 08/21 900 Furosemide 40 MG DAILY 08/19 899 DC 08/20 IV 08 Linaclotide 145 MCG DAILY 08/19 899 AC 08/20 PO 08 Magnesium Oxide 400 MG DAILY 08/19 899 AC 08/20 PO 0818 Methylprednisolone 40 MG DAILY 08/19 899 DC 08/20 IV 0818 Prednisone 40 MG ONCE ONE 08/21 899 UNVr PO 08/21 900 Prednisone 60 MG 0945 08/20 944 DC PO 08/20 945 Spironolactone 25 MG DAILY 08/19 899 AC 08/20 PO 817 Verapamil HCl 120 MG QPM 08/19 2099 AC 08/19 PO 2053 Last 24 Hrs of Lab/Mina Results Last 24 Hrs of Labs/Mics: Laboratory Tests 08/20/17 0828: Anion Gap 11, Estimated GFR 54 L, BUN/Creatinine Ratio 39.0 H, CBC w Diff MAN DIFF ORDERED, RBC 3.93 L, MCV 96.9, MCH 32.9 H, MCHC 34.0, RDW 14.5, MPV 9.6, Gran % 66.4, Lymphocytes % 21.7, Monocytes % 11.2 H, Eosinophils % 0.3, Basophils % 0.4, Absolute Granulocytes 4.0, Absolute Lymphocytes 1.3, Absolute Monocytes 0.7 H, Absolute Eosinophils 0, Absolute Basophils 0, Platelet Estimate DECREASED, Normocytic RBCs VERIFIED, Normochromic RBCs VERIFIED Microbiology 08/19 1824 LOWER RESP: Respiratory Culture - RES 08/19 1824 LOWER RESP: Gram Stain - RES Assessment/Plan Assessment: ASSESSMENT:This is a 77 yo female w/ PMH of COPD, CHF, HTN, DM, HIT, PAF on Eliquis, fatty liver disease who comes in with CC of worsening SOB/DARDEN with productive cough. Ambulatory sat in ED was 90% with her resting sat at 94%. She states that she increased her lasix to 40mg daily for four days prior to admission and saw no improvement on her DARDEN. She is admitted to telemetry unit for further management of her SOB. PLAN COPD: Pt has hx of COPD not on home O2. On auscultation she does not seem diffusely wheezy but rather crackly. * TRC * PRN O2 for sats > 92 * azithro, no ceftriaxone bc no evidence of infection * sputum cx * Will switch from IV 40mg prednisone to po prednisone tomorrow CHF: BNP 2760. XRY shows that the cardiac silhouette is at the upper limits of normal in size. There is mild prominence of the central pulmonary vasculature and there is peribronchial cuffing. The findings may be consistent with early congestive heart failure. November 2016 echocardiogram shows LVEF 60-65 with stage one diastolic dysfunction, mild , mild MS, and LVH. * TRC * Spironolactone * Strict ins and outs and daily weights * Appreciate cardiology consult * Echo * IV lasix 40mg--> will switch to PO lasix 60 tomorrow. Pt is only having 900cc/ 24 hr output on 40IV but her edema and respiratory status does seem to be improving. Leukopenia: Pt has intermittently had wbc low but today at 1.4 (2 bands) which is the lowest it has been. Pt currently receiving IV solumedrol for COPD exacerbation. In that context she is afebrile. No evidence of consolidation on cxr. * Con't monitor * Will consider ID consult if her leukopenia does not improve or she shows evidence of any infection * Though possibiity is remote will do tick panel as pt has leukopenia, thrombocytopenia and elevated liver enzyme Thombocytopenia: Resolved. Today at 136. 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 Follow up outpatient pAFIB: * Verapamil * Con't Eliquis IBS: * Con't Negarzesissac FC HHD ELIQUIS for ppx Problem List: 1. CHF (congestive heart failure) Pain Ratin Pain Location: none Pain Goal: Remain pain free Pain Plan: none Tomorrow's Labs & Rationales: cbc bep
[2017-08-20 09:42] LABS: ABSOLUTE BASOPHIL COUNT 0 /CUMM (0.0-0.2); ABSOLUTE EOSINOPHIL COUNT 0 /CUMM (0.0-0.7); ABSOLUTE MONOCYTE COUNT 0.7 /CUMM (0.10-0.60); BASOPHIL % 0.4 % (0.0-2.0)
[2017-08-20 10:04] LABS: ABSOLUTE LYMPH COUNT 1.3 /CUMM (1.2-3.4); EOSINOPHIL % 0.3 % (0-5); GRANULOCYTE % 66.4 % (42.2-75.2); HEMATOCRIT 38.1 % (37-47); MEAN CORPUSCULAR HGB 32.9 PG (27.0-31.0); MEAN CORPUSCULAR VOLUME 96.9 FL (81.0-99.0); MEAN PLATELET VOLUME 9.6 FL (7.4-10.4); PLATELET COUNT 134 /CUMM (130-400); RBC DISTRIBUTION WIDTH 14.5 % (11.5-14.5); RED BLOOD CELL CT 3.93 /CUMM (4.20-5.40)
--- NOTE | 2017-08-20 10:19 | PN- Att Addend ---
Attending Addendum Attending Brief Note Patient offers no new complaints her breathing is a little better. Refused Accu -Cheks stating I'm not "the diabetic anymore "she knows she is on the steroids and the sugars might go up and allowed 1 Accu-Chek which was 112. Breathing is a little improved Vital signs are stable no fever. No major changes on physical. White count was pending this morning. An ID consult was requested to assess the need of antibiotic in which want to use. Also will get an echocardiogram to assess the congestive heart failure. Intake & Output 08/20 1600 08/20 0400 08/19 1600 08/19 0400 08/18 1600 08/18 0400 Intake Total 280 200 Output Total 500 800 550 Balance -220 200 -800 -550 Intake, Oral 280 200 Output, Urine 500 800 550 Patient 248 lb 270 lb Weight Weight Reported by Patient Measurement Method Current Medications Sig/Estephania Start time Last Medication Dose Route Stop Time Status Admin Acetaminophen 650 MG Q6 08/18 2359 DC 08/19 PO 0001 Albuterol Sulfate 3 ML Q4P PRN 08/19 1430 AC 08/19 INH 1925 Apixaban 5 MG BID 08/18 2359 AC 08/20 PO 0818 Azithromycin 250 MG DAILY 08/20 09 AC PO 08/22 0901 Azithromycin 500 MG ONCE ONE 08/19 1630 DC PO 08/19 1631 Budesonide/ 2 PUF BID 08/19 0900 AC 08/19 Formoterol Fumarate INH 0919 Furosemide 40 MG DAILY 08/19 0900 AC 08/20 IV 0818 Linaclotide 145 MCG DAILY 08/19 0900 AC 08/20 PO 0818 Magnesium Oxide 400 MG DAILY 08/19 0900 AC 08/20 PO 0818 Methylprednisolone 40 MG DAILY 08/19 0900 DC 08/20 IV 0818 Prednisone 60 MG 0945 08/20 0945 DC PO 08/20 0946 Spironolactone 25 MG DAILY 08/19 0900 AC 08/20 PO 0818 Verapamil HCl 120 MG QPM 08/19 2100 AC 08/19 PO 2054 Laboratory Tests 08/20/17 0828: Anion Gap 11, Estimated GFR 54 L, BUN/Creatinine Ratio 39.0 H, CBC w Diff Pending, WBC Pending, RBC Pending, Hgb Pending, Hct Pending, MCV Pending, MCH Pending, MCHC Pending, RDW Pending, Plt Count Pending, MPV Pending 08/19/17 0553: Anion Gap 7, Estimated GFR > 60, BUN/Creatinine Ratio 32.2 H, CBC w Diff MAN DIFF ORDERED, RBC 3.93 L, MCV 95.9, MCH 32.6 H, MCHC 34.0, RDW 13.9, MPV 9.2, Gran % 68.1, Lymphocytes % 24.5, Monocytes % 7.3, Eosinophils % 0.1, Basophils % 0, Absolute Granulocytes 1.0 L, Segmented Neutrophils 64, Band Neutrophils 2, Absolute Lymphocytes 0.3 L, Lymphocytes 24, Monocytes 10 H, Absolute Monocytes 0.1, Absolute Eosinophils 0, Absolute Basophils 0, Platelet Estimate DECREASED, Anisocytosis 1+, Elliptocytes 1+ 08/18/17 1840: Troponin I 0.02 08/18/17 1421: Lactic Acid Cancelled 08/18/17 1140: Anion Gap 10, Estimated GFR 54 L, BUN/Creatinine Ratio 25.0, Glucose 91, Lactic Acid 1.4, Calcium 9.6, Magnesium 1.7, Total Bilirubin 1.9 H, AST 30, ALT 26, Alkaline Phosphatase 84, Troponin I 0.02, Jqp-H-Wkhcqyozeyy Pept 2760 H, Total Protein 7.0, Albumin 3.4 L, Globulin 3.6, Albumin/Globulin Ratio 0.9 L, PT 18.9 H, INR 1.72 H, APTT 36, D-Dimer High Sensitivty 249 H, CBC w Diff NO MAN DIFF REQ, RBC 4.11 L, MCV 97.3, MCH 32.7 H, MCHC 33.6, RDW 14.1, MPV 8.8, Gran % 54.7, Lymphocytes % 21.7, Monocytes % 19.0 H, Eosinophils % 3.1, Basophils % 1.5, Absolute Granulocytes 1.5, Absolute Lymphocytes 0.6 L, Absolute Monocytes 0.5, Absolute Eosinophils 0.1, Absolute Basophils 0 Microbiology 08/19 1824 LOWER RESP: Respiratory Culture - RES 08/19 1824 LOWER RESP: Gram Stain - RES 08/18 1122 NASOPHARYN: Influenza Virus A & B Rapid Smear - COMP Microbiology 08/19 1824 LOWER RESP: Respiratory Culture - RES 08/19 1824 LOWER RESP: Gram Stain - RES 08/18 1122 NASOPHARYN: Influenza Virus A & B Rapid Smear - COMP Vital Signs Date Time Temp Pulse Resp B/P B/P Pulse O2 O2 Flow FiO2 Mean Ox Delivery Rate 08/20 0558 97.6 64 20 102/58 96 Room Air 08/19 2225 98.3 73 20 110/60 94 Room Air 08/19 2114 Room Air 08/19 2054 88 116/64 08/19 1925 95 Room Air 08/19 1446 Room Air 08/19 1446 95 Room Air 08/19 1400 97.3 88 20 110/60 95 Room Air 08/19 1236 97.9 77 18 132/69 95 Room Air Swapped negative for influenza A and B sputum culture pending.
--- NOTE | 2017-08-20 12:24 | RADIOLOGY REPORT ---
EXAMINATION: XR PORTABLE CHEST CLINICAL INFORMATION: Shortness of breath. Presumptive diagnosis of CHF. Monitor for pulmonary edema. COMPARISON: Several prior chest x-rays, most recent of which is dated 08/18/2017. TECHNIQUE: Portable AP semierect view of the chest was obtained. FINDINGS: Multiple EKG leads overlie the chest. The cardiomediastinal silhouette appears enlarged, unchanged. Ectasia and tortuosity of the ascending and descending aorta is seen along with atherosclerotic calcifications of the aortic arch. Mild central vascular congestion is seen without overt pulmonary edema. Lungs bilaterally are symmetrically expanded. No focal consolidation, effusion or pneumothorax is seen. Right CP angle is suboptimally assessed due to overlapping structures and portable technique. Bony structures are unremarkable. IMPRESSION: 1. Cardiomegaly and mild central vascular congestion. No overt pulmonary edema. 2. No acute pulmonary process seen.
[2017-08-20 15:29] VITALS: BP 100/60
[2017-08-20 17:57] VITALS: BP 118/60
[2017-08-20 22:39] VITALS: BP 102/70
[2017-08-20 22:44] VITALS: BP 102/70
[2017-08-20 22:56] VITALS: BP 130/70
[2017-08-21 06:50] VITALS: BP 124/64
--- NOTE | 2017-08-21 07:16 | ECHOCARDIOGRAM REPORT ---
WANDA COWAN Age: 77 : 1940 Gender: F Exam Date: 08/20/2017 17:02 Exam Location: [place] Ht (in): 66 Wt (lb): 270 BSA: 2.45 BP: 102 / 58 Ordering Physician: Sri Cadena MD Referring Physician: Xiang Krause MD Technologist: Rach Rondon [facility] Room Number: [id number] Indications: HEART FAILURE Rhythm: Sinus Technical Quality: fair FINDINGS Left Ventricle Normal size left ventricle. Left ventricular wall thickness mildly increased. Normal left ventricular ejection fraction estimated at 60-65%. Right Ventricle Normal right ventricular size and function. Right Atrium Normal right atrial size. Left Atrium Mild to moderate left atrial dilatation. Mitral Valve Moderate mitral annular calcification. Minimal mitral stenosis. Mild mitral regurgitation. Aortic Valve Diffuse thickening of the aortic valve cusps with reduced excursion. Moderate aortic stenosis. Tricuspid Valve Tricuspid valve is normal in structure and function. Mild tricuspid regurgitation. Right ventricular systolic pressure estimated to be at upper limits of normal at 25 mmHg. Pulmonic Valve Pulmonic valve not well visualized, grossly normal. Pericardium No pericardial effusion. Great Vessels Normal size aortic root. CONCLUSIONS Normal left ventricular systolic function with mild concentric hypertrophy.Moderate Aortic stenosis. Mild Mitral stenosis. Normal right ventricular systolic function. No significant Pulmonary hypertension. Xiang Krause M.D. (Electronically Signed) Final Date: 21 August 2017 07:15 MEASUREMENTS (Male / Female) Normal Values 2D ECHO LV Diastolic Diameter PLAX 5.0 cm 4.2 - 5.9 / 3.9 - 5.3 cm LV Systolic Diameter PLAX 3.1 cm 2.1 - 4.0 cm LV Fractional Shortening PLAX 38.0 % 25 - 46 % LV Ejection Fraction 2D Teich 67.9 % IVS Diastolic Thickness 1.4 cm LVPW Diastolic Thickness 1.4 cm LV Relative Wall Thickness 0.6 RV Internal Dim ED PLAX 3.5 cm 1.9 - 3.8 cm LVOT Diameter 2.0 cm Aortic Root Diameter 2.5 cm LA Volume 84.0 cm 18 - 58 / 22 - 52 cm Ascending Aorta Diameter 3.5 cm DOPPLER AV Peak Velocity 261.0 cm/s AV Peak Gradient 27.2 mmHg AV Mean Velocity 189.0 cm/s AV Mean Gradient 16.0 mmHg AV Velocity Time Integral 66.9 cm LVOT Peak Velocity 125.0 cm/s LVOT Peak Gradient 6.3 mmHg LVOT Mean Velocity 91.3 cm/s LVOT Mean Gradient 4.0 mmHg LVOT Velocity Time Integral 35.8 cm LVOT Stroke Volume 112.5 cm AV Area Cont Eq vti 1.7 cm AV Area Cont Eq pk 1.5 cm MV Peak Velocity 136.0 cm/s MV Peak Gradient 7.4 mmHg MV Mean Velocity 86.0 cm/s MV Mean Gradient 3.0 mmHg Mitral E Point Velocity 105.0 cm/s Mitral A Point Velocity 121.0 cm/s Mitral E to A Ratio 0.9 MV PHT Velocity 118.0 cm/s MV Deceleration [place] 285.0 cm/s MV Pressure Half Time 124.2 ms MV Area PHT 1.8 cm MV Deceleration Time 367.0 ms TR Peak Velocity 240.0 cm/s TR Peak Gradient 23.0 mmHg Right Atrial Pressure 5.0 mmHg Pulmonary Artery Systolic Pressu 28.0 mmHg Right Ventricular Systolic Press 28.0 mmHg PV Peak Velocity 127.0 cm/s PV Peak Gradient 6.5 mmHg PV Mean Velocity 92.1 cm/s PV Mean Gradient 4.0 mmHg PV Velocity Time Integral 29.1 cm LV E' Lateral Velocity 10.1 cm/s Mitral E to LV E' Lateral Ratio 10.4 LV E' Septal Velocity 5.1 cm/s Mitral E to LV E' Septal Ratio 20.7
--- NOTE | 2017-08-21 08:00 | PN- Housestaff ---
Subjective Follow-up For: SOB Subjective: Saw pt at bedside this AM. She stated she felt much better, but still wheezy. Likely DC tomorrow Review of Systems Constitutional: Denies: chills, fever, weakness. EENTM: Reports: no symptoms. Cardiovascular: Denies: chest pain, palpitations. Respiratory: Reports: cough, short of breath. Gastrointestinal: Denies: abdominal pain, nausea, vomiting. Genitourinary: Reports: no symptoms. Musculoskeletal: Reports: no symptoms. Skin: Reports: no symptoms. Objective Last 24 Hrs of Vital Signs/I&O Vital Signs Date Time Temp Pulse Resp B/P B/P Pulse O2 O2 Flow FiO2 Mean Ox Delivery Rate 08/21 1104 95 Room Air 08/21 0650 97.5 63 20 124/64 94 Room Air 08/20 2256 98.2 79 20 130/70 96 Room Air 08/20 2244 97.8 94 18 102/70 98 Room Air 08/20 1757 97.4 62 16 118/60 97 Room Air 08/20 1529 98.1 65 20 100/60 98 Room Air Intake & Output 08/21 1600 08/21 0800 08/21 0000 Intake Total 110 150 Output Total 300 Balance -190 150 Intake, IV 10 Intake, Oral 100 150 Output, Urine 300 Patient 108.664 kg 78.925 kg Weight Weight Reported by Patient Measurement Method Physical Exam General Appearance: Alert, Oriented X3, Cooperative, No Acute Distress Skin: No Significant Lesion HEENT: Atraumatic, PERRLA, EOMI Neck: Supple Cardiovascular: Regular Rate, Normal S1, Normal S2 Lungs: difusely wheezy in all boucher Abdomen: Soft, No Tenderness Assessment/Plan Assessment: ASSESSMENT:This is a 77 yo female w/ PMH of COPD, CHF, HTN, DM, HIT, PAF on Eliquis, fatty liver disease who comes in with CC of worsening SOB/DARDEN with cough. Ambulatory sat in ED was 90% with her resting sat at 94%. She states that she increased her lasix to 40mg daily for four days prior to admission and saw no improvement on her DARDEN. She is admitted to telemetry unit for further management of her SOB. PLAN COPD: Pt has hx of COPD not on home O2. Diffusely wheezy to auscultation * TRC * PRN O2 for sats > 92 * Ceftiin 500mg BID * sputum cx * Po prednisone taper in CHF: BNP 2760. XRY shows that the cardiac silhouette is at the upper limits of normal in size. There is mild prominence of the central pulmonary vasculature and there is peribronchial cuffing. The findings may be consistent with early congestive heart failure. November 2016 echocardiogram shows LVEF 60-65 with stage one diastolic dysfunction, mild , mild MS, and LVH. * TRC * Spironolactone * Strict ins and outs and daily weights * Appreciate cardiology consult * Echo * Con't Po lasix Leukopenia: Pt has intermittently had wbc low but today at 1.4 (2 bands) which is the lowest it has been. Pt currently receiving IV solumedrol for COPD exacerbation. In that context she is afebrile. No evidence of consolidation on cxr. * Con't monitor * Though possibiity is remote will do tick panel as pt has leukopenia, thrombocytopenia and elevated liver enzyme Thombocytopenia: Resolved. 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 Follow up outpatient pAFIB: * Verapamil * Con't Eliquis IBS: * Con't Linzess FC HHD ELIQUIS for ppx Problem List: 1. CHF (congestive heart failure) Pain Ratin Pain Location: NONE Pain Goal: Remain pain free Pain Plan: NONE Tomorrow's Labs & Rationales: NONE
[2017-08-21 08:15] LABS: ABSOLUTE BASOPHIL COUNT 0 /CUMM (0.0-0.2); ABSOLUTE EOSINOPHIL COUNT 0 /CUMM (0.0-0.7); ABSOLUTE GRANULOCYTE CT 4.1 /CUMM (1.4-6.5); ABSOLUTE LYMPH COUNT 1.3 /CUMM (1.2-3.4); ABSOLUTE MONOCYTE COUNT 0.7 /CUMM (0.10-0.60); BASOPHIL % 0.1 % (0.0-2.0); EOSINOPHIL % 0.3 % (0-5); GRANULOCYTE % 67.2 % (42.2-75.2); MEAN CORPUSCULAR VOLUME 97.1 FL (81.0-99.0); MEAN PLATELET VOLUME 9.9 FL (7.4-10.4); PLATELET COUNT 141 /CUMM (130-400); RBC DISTRIBUTION WIDTH 14.4 % (11.5-14.5); RED BLOOD CELL CT 3.82 /CUMM (4.20-5.40); WHITE BLOOD CELL COUNT 6.1 /CUMM (4.8-10.8)
--- NOTE | 2017-08-21 11:26 | PN- Pulmonary ---
Subjective HPI/Critical Care Issues: Still has sig sputum and wheezing On room air fatigue Denies: chills, fever, weakness. EENTM: Reports: no symptoms. Cardiovascular: Denies: chest pain, palpitations. Respiratory: Reports: cough, short of breath. Gastrointestinal: Denies: abdominal pain, nausea, vomiting. Genitourinary: Reports: no symptoms. Musculoskeletal: Reports: no symptoms. Skin: Reports: no symptoms. Objective Current Medications: Current Medications Sig/Estephania Start time Last Medication Dose Route Stop Time Status Admin Albuterol Sulfate 3 ML Q4P PRN 08/19 1430 AC 08/21 INH 1110 Apixaban 5 MG BID 08/18 2359 AC 08/21 PO 0809 Azithromycin 250 MG DAILY 08/20 0900 AC 08/21 PO 08/22 0901 0808 Budesonide/ 2 PUF BID 08/19 0900 AC 08/21 Formoterol Fumarate INH 0809 Furosemide 60 MG 0900 08/21 0900 DC 08/21 PO 08/21 0901 0808 Furosemide 40 MG DAILY 08/19 0900 DC 08/20 IV 0818 Linaclotide 145 MCG DAILY 08/19 0900 AC 08/21 PO 0809 Magnesium Oxide 400 MG DAILY 08/19 0900 AC 08/21 PO 0808 Prednisone 40 MG 0900 08/21 0900 DC 08/21 PO 08/21 0901 0808 Spironolactone 25 MG DAILY 08/19 0900 AC 08/21 PO 0809 Verapamil HCl 120 MG QPM 08/19 2100 AC 08/20 PO 2100 Vital Signs & I&O Last 24 Hrs of Vitals and I&O: Vital Signs Date Time Temp Pulse Resp B/P B/P Pulse O2 O2 Flow FiO2 Mean Ox Delivery Rate 08/21 1104 95 Room Air 08/21 0650 97.5 63 20 124/64 94 Room Air 08/20 2256 98.2 79 20 130/70 96 Room Air 08/20 2244 97.8 94 18 102/70 98 Room Air 08/20 1757 97.4 62 16 118/60 97 Room Air 08/20 1529 98.1 65 20 100/60 98 Room Air Intake & Output 08/21 1600 08/21 0800 08/21 0000 Intake Total 110 150 Output Total 300 Balance -190 150 Intake, IV 10 Intake, Oral 100 150 Output, Urine 300 Patient 240 lb 174 lb Weight Weight Reported by Patient Measurement Method Laboratory Tests 08/21 08/20 0640 0828 Chemistry Sodium (137 - 145 mmol/L) 141 142 Potassium (3.5 - 5.1 mmol/L) 3.7 3.8 Chloride (98 - 107 mmol/L) 105 104 Carbon Dioxide (22 - 30 mmol/L) 29 28 Anion Gap (5 - 16) 7 11 BUN (7 - 17 mg/dL) 40 H 39 H Creatinine (0.5 - 1.0 mg/dL) 1.1 H 1.0 Estimated GFR (>60 ml/min) 48 L 54 L BUN/Creatinine Ratio (7 - 25 %) 36.4 H 39.0 H Hematology CBC w Diff NO MAN DIFF REQ MAN DIFF ORDERED WBC (4.8 - 10.8 /CUMM) 6.1 6.0 RBC (4.20 - 5.40 /CUMM) 3.82 L 3.93 L Hgb (12.0 - 16.0 G/DL) 12.6 12.9 Hct (37 - 47 %) 37.0 38.1 MCV (81.0 - 99.0 FL) 97.1 96.9 MCH (27.0 - 31.0 PG) 33.0 H 32.9 H MCHC (33.0 - 37.0 G/DL) 34.0 34.0 RDW (11.5 - 14.5 %) 14.4 14.5 Plt Count (130 - 400 /CUMM) 141 134 MPV (7.4 - 10.4 FL) 9.9 9.6 Gran % (42.2 - 75.2 %) 67.2 66.4 Lymphocytes % (20.5 - 51.1 %) 21.4 21.7 Monocytes % (1.7 - 9.3 %) 11.0 H 11.2 H Eosinophils % (0 - 5 %) 0.3 0.3 Basophils % (0.0 - 2.0 %) 0.1 0.4 Absolute Granulocytes (1.4 - 6.5 /CUMM) 4.1 4.0 Absolute Lymphocytes (1.2 - 3.4 /CUMM) 1.3 1.3 Absolute Monocytes (0.10 - 0.60 /CUMM) 0.7 H 0.7 H Absolute Eosinophils (0.0 - 0.7 /CUMM) 0 0 Absolute Basophils (0.0 - 0.2 /CUMM) 0 0 Platelet Estimate (ADEQUATE) DECREASED Normocytic RBCs VERIFIED Normochromic RBCs VERIFIED Microbiology Date/Time Procedure - Status Source Growth 08/19 1824 Respiratory Culture - COMP LOWER RESP 08/19 1824 Gram Stain - COMP LOWER RESP 08/18 112 Influenza Virus A & B Rapid Smear - COMP NASOPHARYN Impression/Plan Impression/Plan Impression/Plan: General Appearance: Alert, Oriented X3, Cooperative, No Acute Distress Skin: No Significant Lesion HEENT: Atraumatic, PERRLA, EOMI Neck: Supple Chest: Sig wheezing and rhonchi Cardiovascular: Regular Rate, Normal S1, Normal S2 Abdomen: Soft, No Tenderness Trace edema IMPRESSION This is a lady with history of glucose intolerance, moderate COPD with previous sig smoking, hypertension, 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, hypertension, chronic liver disease, previous history of heart failure with preserved ef, afib on anticoag, vitamin D deficiency, chronic venous insufficiency and chronic pedal edema, degenerative joint disease, Chronic thrombocytopenia now comes in with * COPD exacerbaiton with sig wheezing mod with no sig wheezig, with bronchitis now with purulent sputum * Significantly elevated proBNP with chest x-ray suggestive of mild congestive heart failure, with heart failure with preserved ef * Pafib now on anticoag * 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
[2017-08-21] MEDS ORDERED: PREDNISONE10 M2 PO (13:12)
--- NOTE | 2017-08-21 13:31 | Patient Discharge Instructions ---
Discharge Instructions General Discharge Information You were seen/treated for: COPD You had these procedures: Diuresis and steroids Watch for these problems: Worsening shortness of breath Fever Special Instructions: 1. Please follow up with Dr. Padilla in one week 2. Please finish up your steroid taper 3. Please use your neb machine as necessary 4. Please finish your antibotics Diet Continue normal diet: Yes Activity Full Activity/No Limits: No Activity Self Limited: Yes Acute Coronary Syndrome Inclusion Criteria At DC or during hospital stay patient has or had the following: ACS DIAGNOSIS No Discharge Core Measures Meds if any: Prescribed or Continued at Discharge Meds if any: NOT Prescribed or Continued at Discharge Congestive Heart Failure Inclusion Criteria At DC or during hospital stay patient has or had the following: CHF DIAGNOSIS No Discharge Core Measures Meds if any: Prescribed or Continued at Discharge Meds if any: NOT Prescribed or Continued at Discharge Cerebrovascular accident Inclusion Criteria At DC or during hospital stay patient has or had the following: CVA/TIA Diagnosis No Discharge Core Measures Meds if any: Prescribed or Continued at Discharge Meds if any: NOT Prescribed or Continued at Discharge Venous thromboembolism Inclusion Criteria VTE Diagnosis No VTE Type NONE VTE Confirmed by (Test) NONE Discharge Core Measures - Per Current guidelines, there needs to be overlap - treatment for the first 5 days of Warfarin therapy. - If discharged on Warfarin prior to 5 days of - overlap therapy, the patient will need to be - assessed for post discharge needs including - *Post discharge parental anticoagulation - *Warfarin and/or parental anticoagulation education - *Follow up date to check INR post discharge At least 5 days overlap therapy as Inpatient No Meds if any: Prescribed or Continued at Discharge Note: Overlap Therapy is Warfarin and Anticoagulant Meds if any: NOT Prescribed or Continued at Discharge
[2017-08-21] MEDS ORDERED: K-TAB ER10 MEQ PO (13:45)
[2017-08-21 15:32] VITALS: BP 140/58
[2017-08-21 23:12] VITALS: BP 128/60
[2017-08-22 06:00] VITALS: BP 116/80
[2017-08-22] MEDS ORDERED: TUDORZA PRESS400 MCG INH ×2 (07:27→15:08)
[2017-08-22] MEDS ORDERED: CEFUROXIME250 M1 PO ×2 (07:27→15:08)
--- NOTE | 2017-08-22 07:32 | PN- Housestaff ---
Subjective Follow-up For: SOB Tele-Events Since Last Visit: Pt was in NSR wtih multiple PVCs through night. Subjective: Saw pt at bedside. She states that she feels largely well, but continues to have Review of Systems Constitutional: Denies: chills, fever, malaise. EENTM: Reports: no symptoms. Cardiovascular: Denies: chest pain, palpitations. Respiratory: Reports: cough, short of breath, sputum production. Gastrointestinal: Reports: no symptoms. Genitourinary: Reports: no symptoms. Musculoskeletal: Reports: no symptoms. Skin: Reports: no symptoms. Objective Last 24 Hrs of Vital Signs/I&O Vital Signs Date Time Temp Pulse Resp B/P B/P Pulse O2 O2 Flow FiO2 Mean Ox Delivery Rate 08/22 1534 97.9 85 20 110/60 95 08/22 1319 94 Room Air Room Air 08/22 0800 97 Room Air 08/22 0600 97.1 60 20 116/80 95 Room Air 08/22 0000 Room Air 08/21 2312 98.0 81 16 128/60 94 Room Air 08/21 2110 77 140/82 08/21 2032 96 Room Air Room Air Intake & Output 08/22 1600 08/22 0800 08/22 0000 Intake Total 410 120 120 Output Total 400 300 200 Balance 10 -180 -80 Intake, IV 10 Intake, Oral 400 120 120 Output, Urine 400 300 200 Patient 76.771 kg Weight Physical Exam General Appearance: Alert, Oriented X3, Cooperative, No Acute Distress Skin: No Significant Lesion HEENT: Atraumatic, PERRLA, Mucous Membr. moist/pink Neck: Supple Cardiovascular: Regular Rate, Normal S1, Normal S2 Lungs: rhonchi present. some wheezing heard at bases Abdomen: Soft, No Tenderness Extremities: 2+ edema Current Medications: Current Medications Sig/Estephania Start time Last Medication Dose Route Stop Time Status Admin Albuterol Sulfate 3 ML TID 08/22 2100 AC INH Albuterol Sulfate 3 ML Q4P PRN 08/19 1430 DC 08/22 INH 1318 Apixaban 5 MG BID 08/18 2359 AC 08/22 PO 0821 Budesonide/ 2 PUF BID 08/19 0900 AC 08/22 Formoterol Fumarate INH 0822 Cefuroxime Sodium 500 MG BID 08/21 1249 AC 08/22 PO 0821 Linaclotide 145 MCG DAILY 08/19 899 AC 08/22 PO 0821 Magnesium Oxide 400 MG DAILY 08/19 899 AC 08/22 PO 0821 Patient Medication 1 ED ONE ONE 08/21 1929 MD Teaching ED 08/21 1930 Prednisone 30 MG 08/22 DC 08/22 PO 08/22 0901 0821 Spironolactone 25 MG DAILY 08/19 899 AC 08/22 PO 0821 Tiotropium [place] 1 PUF DAILY 08/21 1349 AC 08/22 INH 0824 Verapamil HCl 120 MG QPM 08/19 2100 AC 08/21 PO 2110 Last 24 Hrs of Lab/Mina Results Last 24 Hrs of Labs/Mics: Laboratory Tests 08/22/17927: Anion Gap 13, Estimated GFR 48 L, BUN/Creatinine Ratio 38.2 H, CBC w Diff NO MAN DIFF REQ, RBC 4.09 L, MCV 97.6, MCH 32.6 H, MCHC 33.4, RDW 14.9 H, MPV 9.6, Gran % 58.3, Lymphocytes % 31.3, Monocytes % 8.9, Eosinophils % 0.9, Basophils % 0.6, Absolute Granulocytes 3.8, Absolute Lymphocytes 2.1, Absolute Monocytes 0.6, Absolute Eosinophils 0.1, Absolute Basophils 0 Assessment/Plan Assessment: ASSESSMENT:This is a 77 yo female w/ PMH of COPD, CHF, HTN, DM, HIT, PAF on Eliquis, fatty liver disease who comes in with CC of worsening SOB/DARDEN with cough. Ambulatory sat in ED was 90% with her resting sat at 94%. She states that she increased her lasix to 40mg daily for four days prior to admission and saw no improvement on her DARDEN. She is admitted to telemetry unit for further management of her SOB. PLAN COPD: Pt has hx of COPD not on home O2. She is having purulent sputum and cough. Likely superimposed bronchitis * TRC * PRN O2 for sats > 92 * Ceftiin 500mg BID * sputum cx * Po prednisone taper in CHF: BNP 2760. XRY shows that the cardiac silhouette is at the upper limits of normal in size. There is mild prominence of the central pulmonary vasculature and there is peribronchial cuffing. The findings may be consistent with early congestive heart failure. November 2016 echocardiogram shows LVEF 60-65 with stage one diastolic dysfunction, mild , mild MS, and LVH. * TRC * Spironolactone * Strict ins and outs and daily weights * Will need outpatient Echocardiogram * Con't Po lasix Leukopenia: Resolved. * Con't monitor * Though possibiity is remote will do tick panel as pt has leukopenia, thrombocytopenia and elevated liver enzyme Thombocytopenia: Resolved. 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 Follow up outpatient pAFIB: * Verapamil * Con't Eliquis IBS: * Con't Linzess FC HHD ELIQUIS for ppx Problem List: 1. CHF (congestive heart failure) Pain Ratin Pain Location: none Pain Goal: Remain pain free Pain Plan: none Tomorrow's Labs & Rationales: cbc bep
--- NOTE | 2017-08-22 09:51 | PN- Pulmonary ---
Subjective HPI/Critical Care Issues: Doing ok Went into afib last night now in sinus with yolande stable now has some conduction delay noted Objective Current Medications: Current Medications Sig/Estephania Start time Last Medication Dose Route Stop Time Status Admin Albuterol Sulfate 3 ML Q4P PRN 08/19 1430 AC 08/21 INH 2030 Apixaban 5 MG BID 08/18 2359 AC 08/22 PO 0821 Azithromycin 250 MG DAILY 08/20 0900 DC 08/21 PO 08/22 0901 0808 Budesonide/ 2 PUF BID 08/19 0900 AC 08/22 Formoterol Fumarate INH 0822 Cefuroxime Sodium 500 MG BID 08/21 1249 AC 08/22 PO 0821 Linaclotide 145 MCG DAILY 08/19 0900 AC 08/22 PO 0821 Magnesium Oxide 400 MG DAILY 08/19 0900 AC 08/22 PO 0821 Patient Medication 1 ED ONE ONE 08/21 1930 DC Teaching ED 08/21 193 Prednisone 30 MG 0900 08/22 0900 DC 08/22 PO 08/22 0901 0821 Spironolactone 25 MG DAILY 08/19 0900 AC 08/22 PO 0821 Tiotropium [place] 1 PUF DAILY 08/21 1349 AC 08/22 INH 0824 Verapamil HCl 120 MG QPM 08/19 2100 AC 08/21 PO 2110 Vital Signs & I&O Last 24 Hrs of Vitals and I&O: Vital Signs Date Time Temp Pulse Resp B/P B/P Pulse O2 O2 Flow FiO2 Mean Ox Delivery Rate 08/22 0600 97.1 60 20 116/80 95 Room Air 08/22 0000 Room Air 08/21 2312 98.0 81 16 128/60 94 Room Air 08/21 2110 77 140/82 08/21 2032 96 Room Air Room Air 08/21 1532 97.1 76 20 140/58 96 Room Air 08/21 1104 95 Room Air Intake & Output 08/22 1600 08/22 0800 08/22 0000 Intake Total 120 120 Output Total 300 200 Balance -180 -80 Intake, Oral 120 120 Output, Urine 300 200 Patient 169 lb Weight Impression/Plan Impression/Plan Impression/Plan: General Appearance: Alert, Oriented X3, Cooperative, No Acute Distress Skin: No Significant Lesion HEENT: Atraumatic, PERRLA, EOMI Neck: Supple Chest: Sig wheezing and rhonchi Cardiovascular: Regular Rate, Normal S1, Normal S2 Abdomen: Soft, No Tenderness Trace edema IMPRESSION This is a lady with history of glucose intolerance, moderate COPD with previous sig smoking, hypertension, 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, hypertension, chronic liver disease, previous history of heart failure with preserved ef, afib on anticoag, vitamin D deficiency, chronic venous insufficiency and chronic pedal edema, degenerative joint disease, Chronic thrombocytopenia now comes in with * COPD exacerbaiton with sig wheezing mod with no sig wheezig, with bronchitis now with purulent sputum * Significantly elevated proBNP with chest x-ray suggestive of mild congestive heart failure, with heart failure with preserved ef * Pafib now on anticoag, went into afib last night now yolande with conduction abnormality noted * Normal LVEF with mild MS with no pulm htn * 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
[2017-08-22 11:31] LABS: ABSOLUTE BASOPHIL COUNT 0 /CUMM (0.0-0.2); ABSOLUTE EOSINOPHIL COUNT 0.1 /CUMM (0.0-0.7); ABSOLUTE GRANULOCYTE CT 3.8 /CUMM (1.4-6.5); ABSOLUTE LYMPH COUNT 2.1 /CUMM (1.2-3.4); ABSOLUTE MONOCYTE COUNT 0.6 /CUMM (0.10-0.60); BASOPHIL % 0.6 % (0.0-2.0); EOSINOPHIL % 0.9 % (0-5); GRANULOCYTE % 58.3 % (42.2-75.2); MEAN CORPUSCULAR HGB 32.6 PG (27.0-31.0); MEAN CORPUSCULAR HGB CONC 33.4 G/DL (33.0-37.0); MEAN CORPUSCULAR VOLUME 97.6 FL (81.0-99.0); MEAN PLATELET VOLUME 9.6 FL (7.4-10.4); PLATELET COUNT 176 /CUMM (130-400); RBC DISTRIBUTION WIDTH 14.9 % (11.5-14.5); RED BLOOD CELL CT 4.09 /CUMM (4.20-5.40); WHITE BLOOD CELL COUNT 6.6 /CUMM (4.8-10.8)
[2017-08-22] MEDS ORDERED: ELIQUIS5 M1 PO (15:08)
[2017-08-22] MEDS ORDERED: PREDNISONE10 M2 PO (15:08)
[2017-08-22] MEDS ORDERED: LASIX20 M1 PO ×2 (15:09)
[2017-08-22 15:34] VITALS: BP 110/60
--- NOTE | 2017-08-22 16:04 | Discharge Summary ---
Hospital Course Allergies: Coded Allergies: diltiazem (From [facility]) (Severe, TOTAL BODY RASH 08/18/17) meclizine (RASH 08/08/16) Discharge Instructions Medications at Discharge Discharge Medications: Continue taking these medications: Cholecalciferol (Vitamin D3) (Vitamin D3) 1,000 UNIT CAPSULE Capsule ORAL DAILY Comments: NOT GIVEN IN HOSPITAL Budesonide/Formoterol Fumarate (Symbicort 160-4.5 Mcg Inhaler) 160 MCG-4.5 MCG/ ACTUATION HFA.AER.AD 2 PUFF TWICE DAILY Comments: Last Taken: 08/22/17 Time: 821 Magnesium Oxide (Magnesium Oxide) 400 MG TABLET 1 Tablet ORAL DAILY Qty = 30 Instructions: . Comments: Last Taken:08/22/17 Time:820 Ethacrynic Acid (Ethacrynic Acid) 25 MG TABLET 1 Tablet ORAL DAILY Qty = 10 Comments: NOT GIVEN IN HOSPITAL Verapamil HCl (Verapamil ER) 120 MG TABLET.ER 1 Tablet ORAL Every night Qty = 30 Comments: Last Taken:08/21/17 Time:2100 Polyethylene Glycol 3350 (Miralax) 17 GRAM POWD.PACK 1 Packet ORAL DAILY Instructions: dissolve in water Comments: NOT GIVEN IN HOSPITAL Acetaminophen (Tylenol) 325 MG TABLET 2 Tablet ORAL DAILY Comments: NOT GIVEN Linaclotide (Linzess) 145 MCG CAPSULE 145 Milligram ORAL DAILY Qty = 30 Comments: Last Taken:08/22/17 Time:820 Spironolactone (Spironolactone) 25 MG TABLET 25 Milligram ORAL DAILY Qty = 90 Comments: Last Taken:08/22/17 Time:820 Aclidinium [place] (Tudorza Pressair) 400 MCG/ACTUATION AER.POW.BA 1 PUFF Inhale through mouth TWICE DAILY Qty = 1 Comments: NOT GIVEN IN HOSPITAL This prescription has been renewed Apixaban (Eliquis) 5 MG TABLET 1 Tablet ORAL TWICE DAILY Qty = 60 Instructions: . Comments: Last Taken: 08/22/17 Time: 820 This prescription has been renewed Furosemide (Lasix) 20 MG TABLET 1 Tablet ORAL Every other day Qty = 30 Comments: Last Taken:08/21/17 Time:0808 This prescription has been renewed Start taking the following new medications: Cefuroxime Axetil (Cefuroxime) 250 MG TABLET 1 Tablet ORAL TWICE DAILY Qty = 6 No Refills Instructions: . Comments: Last Taken:08/22/17 Time:08 Prednisone (Prednisone) 10 MG TABLET 10 Milligram ORAL SEE ADMIN Qty = 9 No Refills Comments: LAST TAKEN 08/22/17 @ 0820 30 MGS On 08/23 take 3 tab PO once for total of 30mg On 08/24 take 2 tab PO once for total of 20mg On 08/25 take 2 tab PO once for total of 20mg On 08/26 take 1 tab PO once for total of 10mg On 08/27 take 1 tab PO once for total of 10mg THEN STOP Nebulizer (Aeroeclipse II) 1 EACH EACH 1 Unit Inhale through mouth DAILY as needed for SOB Qty = 1 No Refills Albuterol Sulfate (Albuterol Sulfate) 0.63 MG/3 ML VIAL.NEB 1 Vial Inhale Solution 4 TIMES A DAY as needed for SOB Qty = 150 No Refills
[2017-08-22] MEDS ORDERED: AEROECLIPSE II1 EACH INH (17:28)
[2017-08-22] MEDS ORDERED: ALBUTEROL0.63 MG/1 INH/SOL (17:29)
--- NOTE | 2017-09-19 13:36 | Discharge Summary ---
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, hypertension, chronic liver disease, previous history of heart failure with preserved ef, afib on anticoag, vitamin D deficiency, chronic venous insufficiency and chronic pedal edema, degenerative joint disease, Chronic thrombocytopenia now comes in with * COPD exacerbaiton with sig wheezing mod with no sig wheezig, with bronchitis now with purulent sputum resolved upon dc * Significantly elevated proBNP with chest x-ray suggestive of mild congestive heart failure, with heart failure with preserved ef * Pafib now on anticoag, went into afib last night now yolande with conduction abnormality noted stable * Normal LVEF with mild MS with no pulm htn * 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 * 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 * Vitamin D deficiency * Previous sig glucose intol now better Allergies: Coded Allergies: diltiazem (From CARDIZEM) (Severe, TOTAL BODY RASH 08/18/17) meclizine (RASH 08/08/16) Disposition Summary Disposition Principal Diagnosis: ACOPD EXACERBATION Additional Diagnosis: * congestive heart failure, with heart failure with preserved ef * Pafib now on anticoag, PAROXYSMAL * 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 * 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 * Vitamin D deficiency * Previous sig glucose intol now better Discharge Disposition: home or self care Discharge Instructions General Discharge Information Code Status: Full Code Patient's Diet: LOW SALT Patient's Activity: ROMY Follow-Up Instructions/Appts: WITH ME Medications at Discharge Discharge Medications: Continue taking these medications: Cholecalciferol (Vitamin D3) (Vitamin D3) 1,000 UNIT CAPSULE Capsule ORAL DAILY Comments: NOT GIVEN IN HOSPITAL Budesonide/Formoterol Fumarate (Symbicort 160-4.5 Mcg Inhaler) 160 MCG-4.5 MCG/ ACTUATION HFA.AER.AD 2 PUFF TWICE DAILY Comments: Last Taken: 08/22/17 Time: 0822 Magnesium Oxide (Magnesium Oxide) 400 MG TABLET 1 Tablet ORAL DAILY Qty = 30 Instructions: . Comments: Last Taken:08/22/17 Time:08 Ethacrynic Acid (Ethacrynic Acid) 25 MG TABLET 1 Tablet ORAL DAILY Qty = 10 Comments: NOT GIVEN IN HOSPITAL Verapamil HCl (Verapamil ER) 120 MG TABLET.ER 1 Tablet ORAL Every night Qty = 30 Comments: Last Taken:08/21/17 Time:2100 Polyethylene Glycol 3350 (Miralax) 17 GRAM POWD.PACK 1 Packet ORAL DAILY Instructions: dissolve in water Comments: NOT GIVEN IN HOSPITAL Acetaminophen (Tylenol) 325 MG TABLET 2 Tablet ORAL DAILY Comments: NOT GIVEN Linaclotide (Linzess) 145 MCG CAPSULE 145 Milligram ORAL DAILY Qty = 30 Comments: Last Taken:08/22/17 Time:820 Spironolactone (Spironolactone) 25 MG TABLET 25 Milligram ORAL DAILY Qty = 90 Comments: Last Taken:08/22/17 Time:08 Aclidinium [place] (Tudorza Pressair) 400 MCG/ACTUATION AER.POW.BA 1 PUFF Inhale through mouth TWICE DAILY Qty = 1 Comments: NOT GIVEN IN HOSPITAL This prescription has been renewed Apixaban (Eliquis) 5 MG TABLET 1 Tablet ORAL TWICE DAILY Qty = 60 Instructions: . Comments: Last Taken: 08/22/17 Time: 08 This prescription has been renewed Furosemide (Lasix) 20 MG TABLET 1 Tablet ORAL Every other day Qty = 30 Comments: Last Taken:08/21/17 Time:0808 This prescription has been renewed Start taking the following new medications: Cefuroxime Axetil (Cefuroxime) 250 MG TABLET 1 Tablet ORAL TWICE DAILY Qty = 6 No Refills Instructions: . Comments: Last Taken:08/22/17 Time:08 Prednisone (Prednisone) 10 MG TABLET 10 Milligram ORAL SEE ADMIN Qty = 9 No Refills Comments: LAST TAKEN 08/22/17 @ 0820 30 MGS On 08/23 take 3 tab PO once for total of 30mg On 08/24 take 2 tab PO once for total of 20mg On 08/25 take 2 tab PO once for total of 20mg On 08/26 take 1 tab PO once for total of 10mg On 08/27 take 1 tab PO once for total of 10mg THEN STOP Nebulizer (Aeroeclipse II) 1 EACH EACH 1 Unit Inhale through mouth DAILY as needed for SOB Qty = 1 No Refills Albuterol Sulfate (Albuterol Sulfate) 0.63 MG/3 ML VIAL.NEB 1 Vial Inhale Solution 4 TIMES A DAY as needed for SOB Qty = 150 No Refills Copies To: Valerie GARCIA,Roman Robles
== END 2017-08-22 18:15 | DRG 292 ==
LOC: ERH 11:01 → 1NO 17:05 → ERHI 17:05 → ENRESERV 08-19 12:10 → ENTRNSPT 08-19 13:22 → EDTRNSPTSTS 08-19 13:28 → CMPTRNSPT 08-19 13:50 → 1NO 08-19 13:54 → ENPENDDIS 08-22 15:18 → DELTRNSPT 08-22 16:59 → 1NO 08-22 18:15
PROVIDERS: Emergency Medicine; Student in an Organized Health Care Education/Training Program
DX: I11.0 Hypertensive heart disease with heart failure (principal); J44.1 Chronic obstructive pulmonary disease with (acute) exacerbation; R06.00 Dyspnea, unspecified; E11.9 Type 2 diabetes mellitus without complications; I48.0 Paroxysmal atrial fibrillation; K76.0 Fatty (change of) liver, not elsewhere classified; I50.33 Acute on chronic diastolic (congestive) heart failure; Z79.01 Long term (current) use of anticoagulants; Z96.653 Presence of artificial knee joint, bilateral; Z90.49 Acquired absence of other specified parts of digestive tract; Z90.710 Acquired absence of both cervix and uterus; Z87.891 Personal history of nicotine dependence; E55.9 Vitamin D deficiency, unspecified; K58.9 Irritable bowel syndrome, unspecified
CPT/HCPCS: 1NP; 86317; 87798; ERO; 36415; 36592; 71045; 71046; 82436; 87070; 87804; 87804-59; 93005; 93010; 93306; 96374; 96375; 97116-GO; 97161-GP; J0456; J1940; J2920; J2930; J3490; J7512